=== PATIENT | male | born 1965 | race Caucasian/White ===

== ENCOUNTER 2017-01-07 23:23 | Emergency (ER) | payer OTHER ==
[~2017-01-07] VITALS: Ht 170.2 cm; Wt 56.7 kg
[~2017-01-07 23:23] MED LIST: ALBU1AER9 INH; ASPI81TA28 PO; CHOL400T PO; CYM/30 PO; MOME220A INH; OMEP40CA PO; VITAMIN E PO
[2017-01-07 23:31] VITALS: O2SAT 100
[2017-01-07 23:37] VITALS: TEMP 36.8; Ht 170.2 cm; Wt 56.7 kg
[2017-01-07] MEDS ORDERED: KETOROLAC TROMETHAMINE 30 MG/ML VIAL IV STA (23:44)
--- NOTE | 2017-01-07 23:47 | EMERGENCY ROOM VISIT NOTE ---
History Report prepared by Eli: Ge Sifuentes Under the Supervision of: Dr. Angelique Mendez D.O. First contact with patient: 23:28 Chief Complaint: CHEST PAIN Stated Complaint: CHEST/BACK PAIN,POSSIBLE PNEUMO THORAX History of Present Illness The patient is a 51 year old male who presents to the Emergency Room with complaints of persistent chest pain that started this evening. The patient has had pain in the center of his back radiating towards the left shoulder for one week, which became worse last night. He rates the pain 5/10 in severity. He also feels short of breath. The patient has had abdominal pain for the past 1-2 months. He notes increased stress over the past month. The patient has a history of two spontaneous pneumothoraxes, for which one required a chest tube. He occasionally takes Naproxen for chronic pain. He has a history of gastric ulcers. The patient has not had alcohol for 4 years as he is a recovering alcoholic. He is a smoker and intends to quit as he was diagnosed with COPD. Source of History: patient Onset: this evening Position: chest Symptom Intensity: 5/10 Timing: other (persistent) Associated Symptoms: + SOB, + back pain Review of Systems See HPI for pertinent positives & negatives. A total of 10 systems reviewed and were otherwise negative. Past Medical & Surgical Medical Problems: (1) Avascular necrosis of bone of left hip (2) BPH (benign prostatic hypertrophy) (3) Chronic back pain (4) Chronic obstructive lung disease (5) Degenerative joint disease of left hip (6) Depression (7) DJD (degenerative joint disease) (8) Gastroesophageal reflux disease (9) H/O alcohol abuse (10) Tobacco use disorder Surgical Problems: (1) H/O chest tube placement (2) H/O colonoscopy (3) H/O inguinal hernia repair (4) History of total right hip arthroplasty Family History Diabetes mellitus FATHER MOTHER SISTER FH: colon cancer SISTER (age 42) Social History Smoking Status: Current Every Day Smoker Alcohol Use: heavy Drug Use: none Marital Status: Housing Status: lives with significant other Occupation Status: unemployed Current/Historical Medications Scheduled Aspirin (Aspirin Ec), 81 MG PO QAM Cholecalciferol (Vitamin D), 400 UNITS PO QAM Duloxetine HCl (Cymbalta), 60 MG PO QAM Omeprazole (Prilosec), 40 MG PO DAILY Vitamin E (E-400), 400 UNIT PO DAILY Scheduled PRN Albuterol Hfa (Ventolin Hfa), 2 PUFFS PO QID PRN for SOB/Wheezing Mometasone Furoate (Asmanex Twisthaler 60 Met), 1 PUFF PO BID PRN for SOB/ Wheezing Allergies Coded Allergies: Iodinated Diagnostic Agents (Verified Allergy, Intermediate, SEVERE HIVES , 01/08/17) Propoxyphene (Verified Adverse Reaction, Intermediate, N/V, 01/08/17) Physical Exam Vital Signs Date Time Temp Pulse Resp B/P Pulse Ox O2 Delivery O2 Flow Rate FiO2 01/08/17 01:48 77 18 116/75 98 01/08/17 00:48 78 18 123/74 97 Room Air 01/07/17 23:37 36.8 101 24 119/77 100 Room Air 01/07/17 23:36 96 01/07/17 23:31 100 Room Air Physical Exam HEENT: Head - normocephalic and atraumatic Pupils are equal, round, and reactive to light. Extraocular eye muscles are intact, and sclera are anicteric. Nose - moist nasal mucosa without discharge. Mouth - moist buccal mucosa. Oropharynx is nonerythematous and there is no tonsillar exudate or edema noted. Neck: Supple; no JVD, nuchal rigidity, cervical lymphadenopathy, or auscultated bruits. Heart: Regular rate and rhythm. There is a normal S1 and S2 with no murmurs, clicks, or gallops appreciated. Lungs: Clear to auscultation bilaterally with no wheezes, rales, or rhonchi. Abdomen: Soft, completely nontender, nondistended, with good bowel sounds. There are no palpable pulsatile masses or hepatosplenomegaly. There is no guarding, rigidity, or rebound noted. Extremities: No evidence of cyanosis, clubbing, or edema. There are easily palpable peripheral pulses. Skin: warm and dry with good turgor and no rashes. Medical Decision & Procedures ER Provider Diagnostic Interpretation: X-ray results as stated below per interpretation by me. CHEST TWO VIEWS ROUTINE: Narrow mediastinum, no evidence of pneumothorax. Laboratory Results 01/07/17 23:53 Red Blood Count 4.37, Mean Corpuscular Volume 89.0, Mean Corpuscular Hemoglobin 31.8, Mean Corpuscular Hemoglobin Concent 35.7, Mean Platelet Volume 9.9, Neutrophils (%) (Auto) 54.8, Lymphocytes (%) (Auto) 32.0, Monocytes (%) (Auto) 10.0, Eosinophils (%) (Auto) 2.2, Basophils (%) (Auto) 0.9, Neutrophils # (Auto ) 4.21, Lymphocytes # (Auto) 2.46, Monocytes # (Auto) 0.77, Eosinophils # (Auto ) 0.17, Basophils # (Auto) 0.07 01/07/17 23:53 Test 01/07/17 23:53 White Blood Count 7.69 K/uL (4.8-10.8) Red Blood Count 4.37 M/uL (4.7-6.1) Hemoglobin 13.9 g/dL (14.0-18.0) Hematocrit 38.9 % (42-52) Mean Corpuscular Volume 89.0 fL (80-100) Mean Corpuscular Hemoglobin 31.8 pg (25-34) Mean Corpuscular Hemoglobin Concent 35.7 g/dl (32-36) Platelet Count 244 K/uL (130-400) Mean Platelet Volume 9.9 fL (7.4-10.4) Neutrophils (%) (Auto) 54.8 % Lymphocytes (%) (Auto) 32.0 % Monocytes (%) (Auto) 10.0 % Eosinophils (%) (Auto) 2.2 % Basophils (%) (Auto) 0.9 % Neutrophils # (Auto) 4.21 K/uL (1.4-6.5) Lymphocytes # (Auto) 2.46 K/uL (1.2-3.4) Monocytes # (Auto) 0.77 K/uL (0.11-0.59) Eosinophils # (Auto) 0.17 K/uL (0-0.5) Basophils # (Auto) 0.07 K/uL (0-0.2) RDW Standard Deviation 49.5 fL (36.4-46.3) RDW Coefficient of Variation 15.1 % (11.5-14.5) Immature Granulocyte % (Auto) 0.1 % Immature Granulocyte # (Auto) 0.01 K/uL (0.00-0.02) Anion Gap 12.0 mmol/L (3-11) Est Creatinine Clear Calc Drug Dose 81.6 ml/min Estimated GFR () 115.9 Estimated GFR (Non- 100.0 BUN/Creatinine Ratio 10.3 (10-20) Calcium Level 9.3 mg/dl (8.5-10.1) Total Bilirubin 0.3 mg/dl (0.2-1) Direct Bilirubin 0.1 mg/dl (0-0.2) Aspartate Amino Transf (AST/SGOT) 11 U/L (15-37) Alanine Aminotransferase (ALT/SGPT) 21 U/L (12-78) Alkaline Phosphatase 82 U/L (45-117) Total Creatine Kinase 120 U/L (39-308) Creatine Kinase MB 1.3 ng/ml (0.5-3.6) Creatine Kinase MB Ratio 1.1 (0-3.0) Troponin I < 0.015 ng/ml (0-0.045) Total Protein 8.1 gm/dl (6.4-8.2) Albumin 4.3 gm/dl (3.4-5.0) Lipase 230 U/L (73-393) Laboratory results per my review. Medications Administered Medications (Trade) Dose Ordered Sig/[place] Route Start Time Stop Time Status Last Admin Dose Admin Ketorolac Tromethamine (Toradol Inj) 30 mg NOW STAT IV 01/07/17 23:44 01/07/17 23:45 DC 01/07/17 23:56 30 MG Procedure Medications administered include Toradol IV. ECG Indication: chest pain Rate (beats per minute): 98 Rhythm: normal sinus Findings: no acute ischemic change, no ectopy ED Course 2337: Past medical records reviewed. The patient was evaluated in room A10. A complete history and physical exam was performed. An IV lock was initiated and labs are drawn as above. A twelve-lead EKG was obtained as described above. 2344: Toradol 30 mg IV. The patient went for chest x-ray which was unremarkable. 0125: The patient feels better. I reviewed the X-ray results and labs with him. He will be written up for discharge. 0145: The patient verbalized understanding and agreement of the discharge instructions. He is ready for discharge. Medical Decision The patient is a 51 year old male who presents to the ED with chest pain. Differential diagnosis includes pneumothorax, anxiety, costochondritis, cardiac ischemia. Laboratory interpretation: no leukocytosis, stable H&H, normal renal function and glucose, normal LFTs and lipase, negative cardiac enzymes. This is a 51-year-old male patient who presents to emergency department complaining of back pain that seems to radiate around to his chest. There is no evidence of pneumothorax or other pulmonary pathology the patient admits to being under significant increased stress secondary to financial reasons. The patient has a normal EKG and negative cardiac enzymes. The patient had moderate relief of his discomfort with IV Toradol. Impression Primary Impression: Mid back pain Additional Impression: Atypical chest pain Scribe Attestation The scribe's documentation has been prepared under my direction and personally reviewed by me in its entirety. I confirm that the note above accurately reflects all work, treatment, procedures, and medical decision making performed by me. Departure Information Dispostion Home / Self-Care Referrals Laura Wang M.D. (PCP) Forms HOME CARE DOCUMENTATION FORM, IMPORTANT VISIT INFORMATION Patient Instructions Chest Pain - [facility], ED Back Care Tips, My [facility] Additional Instructions Rest No strenuous activity Take motrin - 600mg every 6 hours with food for pain Return to the ER if symptoms worsen. Follow up with PCP if symptoms continue Good luck with smoking cessation Problem Qualifiers
[2017-01-08] MEDS ORDERED: ASMIN/60 PO (00:02)
[2017-01-08] MEDS ORDERED: VNTHFA/IN PO (00:02)
[2017-01-08] MEDS ORDERED: OMEP40CA41 PO (00:02)
[2017-01-08] MEDS ORDERED: VITACAP37 PO (00:03)
[2017-01-08 00:06] LABS: BASO % 0.9 %; BASO ABS # 0.07 K/uL (0-0.2); COMPLETE YES; EOS % 2.2 %; HEMATOCRIT 38.9 % (42-52); IG% 0.1 %; LYMPH ABS # 2.46 K/uL (1.2-3.4); MEAN CORPUSCULAR HEMOGLOBIN 31.8 pg (25-34); MEAN CORPUSCULAR HGB CONC 35.7 g/dl (32-36); MEAN PLATELET VOLUME 9.9 fL (7.4-10.4); NEUT % 54.8 %; PLATELET COUNT 244 K/uL (130-400); RED BLOOD COUNT 4.37 M/uL (4.7-6.1); WHITE BLOOD COUNT 7.69 K/uL (4.8-10.8)
[2017-01-08 00:41] LABS: ALT/SGPT 21 U/L (12-78); AST/SGOT 11 U/L (15-37); BLOOD UREA NITROGEN 9 mg/dl (7-18); BUN/CREATININE RATIO 10.3 (10-20); CALCIUM 9.3 mg/dl (8.5-10.1); CARBON DIOXIDE 25 mmol/L (21-32); CHLORIDE 100 mmol/L (98-107); CREATININE 0.84 mg/dl (0.60-1.40); GLUCOSE 90 mg/dl (70-99); POTASSIUM 3.7 mmol/L (3.5-5.1); SODIUM 137 mmol/L (136-145)
[2017-01-08 00:47] LABS: ALKALINE PHOSPHATASE 82 U/L (45-117); CKMB/CK RATIO 1.1 (0-3.0)
[2017-01-08 01:48] VITALS: BP 116/75; PULSE 77; O2SAT 98
--- NOTE | 2017-01-08 06:50 | DIAGNOSTIC IMAGING REPORT ---
CHEST 2 VIEWS ROUTINE CLINICAL HISTORY: Shortness of breath. Chest and back pain. COMPARISON STUDY: 12/19/2015 FINDINGS: The patient appears hyperinflated. The heart is normal in size. There is chronic interstitial thickening. There is mild biapical scarring. There is no failure. There are no significant pleural effusions.[ IMPRESSION: 1. No active disease in the chest 2. Stable hyperexpansion, interstitial thickening, and biapical scarring Electronically signed by: Qamar Hudson M.D. 01/08/2017 6:48 AM Dictated Date/Time: 01/08/2017 6:47 AM
[2017-04-26] MEDS ORDERED: ZNTT/150 PO (15:06)
[2017-04-26] MEDS ORDERED: BUSP15TA70 PO (15:07)
[2017-04-26] MEDS ORDERED: CHOL1000 PO (15:07)
[2017-04-26] MEDS ORDERED: TRAZ100T29 PO (15:07)
[2017-04-26] MEDS ORDERED: VITA1TAB4 PO (15:07)
[2017-04-26] MEDS ORDERED: SERT50TA PO (15:07)
== END 2017-01-08 01:49 | disposition home or self-care (01) ==
LOC: C.EDB 23:25 → C.EDA 01-08 01:49
DX: R07.89 Other chest pain (principal); M54.6 Pain in thoracic spine; G89.29 Other chronic pain; J44.9 Chronic obstructive pulmonary disease, unspecified; K21.9 Gastro-esophageal reflux disease without esophagitis; F32.9 Major depressive disorder, single episode, unspecified; M16.12 Unilateral primary osteoarthritis, left hip; N40.0 Benign prostatic hyperplasia without lower urinary tract symptoms; F17.200 Nicotine dependence, unspecified, uncomplicated; Z87.11 Personal history of peptic ulcer disease; Z96.641 Presence of right artificial hip joint; Z98.890 Other specified postprocedural states; Z79.82 Long term (current) use of aspirin; Z79.899 Other long term (current) drug therapy; Z88.8 Allergy status to other drugs, medicaments and biological substances; Z91.041 Radiographic dye allergy status; Z83.3 Family history of diabetes mellitus; Z80.0 Family history of malignant neoplasm of digestive organs

== ENCOUNTER → 2017-05-02 | Day surgery (SDC) | payer OTHER ==
[2017-04-26 15:09] VITALS: Ht 170.2 cm; Wt 57.7 kg
[~2017-05-02] VITALS: Ht 170.2 cm; Wt 57.7 kg
[~2017-05-02] MED LIST changes: -ALBU1AER9 INH; +ASMIN/60 PO; -ASPI81TA28 PO; +BUSP15TA70 PO; +CHOL1000 PO; -CHOL400T PO; -CYM/30 PO; +LIDOCAINE HCL 2% 2 ML VIAL (20MG/ML) ONE; -MOME220A INH; -OMEP40CA PO; +OMEP40CA41 PO; +ONDANSETRON INJ 2 MG/ML 2 ML VIAL IV PRN; +PROPOFOL IV EMULSION 10 MG/ML 20 ML VIAL IV ONE; +SERT50TA PO; +TRAZ100T29 PO; +VITA1TAB4 PO; -VITAMIN E PO; +VNTHFA/IN PO; +ZNTT/150 PO
--- NOTE | 2017-05-02 09:29 | Endo History and Physical ---
History & Physical Date of Service: May 02, 2017. Chief Complaint: abdominal pain and nausea Referring Physician: Dr. Laura Wang History of Present Illness Patient with a history of nausea for EGD today. Past Medical History Arthritis, Reflux, COPD, Depression Past Surgical History Hx Cardiac Surgery: No Hx Internal Defibrillator: No Hx Pacemaker: No Hx Abdominal Surgery: Yes (HERNIA REPAIR) Hx of Implantable Prosthesis: No Hx Post-Op Nausea and Vomiting: No Hx Cancer Surgery: No Hx Thoracic Surgery: Yes (CHEST TUBE 1991 S/P SPONTANEOUS PNEUMO) Hx Orthopedic: Yes (LT/RT RADU) Hx Urinary Tract Surgery: No Family History Colon CA Social History Smoking Status: Current Every Day Smoker Hx Substance Use: No Hx Alcohol Use: Yes (4 YEARS SOBER) Allergies Coded Allergies: Iodinated Diagnostic Agents (Verified Allergy, Intermediate, SEVERE HIVES , 04/26/17) Propoxyphene (Verified Adverse Reaction, Intermediate, N/V, 04/26/17) Current Medications Reported Home Medications Medications Dose Route/Sig Max Daily Dose Days Date Category Vitamin E 400 Unit Tab 1 Tab PO QAM 04/26/17 Reported Vitamin D3 (Cholecalciferol) 1,000 Unit Tab 1 Tab PO QAM 04/26/17 Reported Zoloft (Sertraline HCl) 50 Mg Tab 3 Tabs PO QAM 04/26/17 Reported Trazodone (Trazodone HCl) 100 Mg Tab 1-2 Tabs PO HS 04/26/17 Reported Buspar (Buspirone Hcl) 15 Mg Tab 10 Mg PO TID 04/26/17 Reported Zantac (Ranitidine HCl) 150 Mg Tab 1 Tab PO BID 04/26/17 Reported Asmanex Twisthaler 60 Met (Mometasone Furoate) 220 Mcg/Inh Aer 1 Puff PO BID PRN 01/08/17 Reported Ventolin Hfa (Albuterol) 200 Puffs/26881 Mcg Aers 2 Puffs PO QID PRN 01/08/17 Reported Prilosec (Omeprazole) 40 Mg Cap 40 Mg PO QAM 01/08/17 Reported Vital Signs Weight (Kilograms): 57.73 Height (Feet): 5 Height (Inches): 7 Date Time Temp Pulse Resp B/P (MAP) Pulse Ox O2 Delivery O2 Flow Rate FiO2 05/02/17 09:10 36.4 88 16 99/63 (75) 98 Room Air Physical Exam General Appearance: no apparent distress Respiratory/Chest: Auscultation: breath sounds normal Cardiovascular: Heart Auscultation: RRR Abdomen: Inspection & Palpation: soft, non-distended Assessment and Plan Evaluation for nausea referred for EGD.
--- NOTE | 2017-05-02 09:49 | Discharge Instructions ---
Endoscopy Patient Instructions Date / Procedure(s) Performed May 02, 2017. EGD Allergy Information Coded Allergies: Iodinated Diagnostic Agents (Verified Allergy, Intermediate, SEVERE HIVES , 04/26/17) Propoxyphene (Verified Adverse Reaction, Intermediate, N/V, 04/26/17) Discharge Date / Findings May 02, 2017. 3 cm hiatal hernia Diffuse gastritis Medication Instructions Restart Stopped Medication(s): Reported Home Medications Medications Dose Route/Sig Max Daily Dose Days Date Category Vitamin E 400 Unit Tab 1 Tab PO QAM 04/26/17 Reported Vitamin D3 (Cholecalciferol) 1,000 Unit Tab 1 Tab PO QAM 04/26/17 Reported Zoloft (Sertraline HCl) 50 Mg Tab 3 Tabs PO QAM 04/26/17 Reported Trazodone (Trazodone HCl) 100 Mg Tab 1-2 Tabs PO HS 04/26/17 Reported Buspar (Buspirone Hcl) 15 Mg Tab 10 Mg PO TID 04/26/17 Reported Zantac (Ranitidine HCl) 150 Mg Tab 1 Tab PO BID 04/26/17 Reported Asmanex Twisthaler 60 Met (Mometasone Furoate) 220 Mcg/Inh Aer 1 Puff PO BID PRN 01/08/17 Reported Ventolin Hfa (Albuterol) 200 Puffs/87378 Mcg Aers 2 Puffs PO QID PRN 01/08/17 Reported Prilosec (Omeprazole) 40 Mg Cap 40 Mg PO QAM 01/08/17 Reported Provider Instructions Activity Restrictions - No exercising or heavy lifting for 24 hours. - Do not drink alcohol the day of the procedure. - Do not drive a car or operate machinery until the day after the procedure. - Do not make any important decisions or sign important papers in 24 hours after the procedure. Following Day: - Return to full activity which may include returning to work/school. Diet Start your diet with liquids and light foods (jello, soup, juice, toast). Then eat your usual diet if not nauseated. Treatment For Common After Affects For mild abdominal pain, bloating, or excessive gas: - Rest - Eat lightly - Lie on right side Follow-Up Information Follow-up with Dr. Laura Wang as scheduled symptoms likely related to a medication (would favor Zoloft or Wellbutrin) Anesthesia Information What You Should Know You have had a procedure that required some medicine to reduce anxiety and discomfort. This treatment is called moderate sedation. After receiving the treatment, you may be sleepy, but you will be able to breathe on your own. The effects of the treatment may last for several hours. Follow these instructions along with Activity/Diet recommendations noted above: * Do NOT do anything where dizziness or clumsiness would be dangerous. * Rest quietly at home today, then you can be up and about tomorrow. * Have a responsible person stay with you the rest of today. * You may have had an I.V. today. If so, you may take the dressing off later today. Recommendations Call your doctor if: * Trouble breathing * Continuous vomiting for more than 24 hours * Temperature above 101 degrees * Severe abdominal pain or bloating * Pain not relieved by pain medicine ordered * There is increased drainage or redness from any incision * A large amount of rectal bleeding greater than 2-3 tablespoons. (If you had a polyp/s removed or have hemorrhoids, a small amount of blood - from the rectum is to be expected.) * You have any unanswered questions or concerns. IN THE EVENT OF A SERIOUS EMERGENCY, GO TO THE NEAREST EMERGENCY ROOM Your discharge instructions were prepared by provider Priscilla Peralta. Patient Instructions Signature Page Azar Fisher Patient (or Guardian) Signature/Date: I have read and understand the instructions given to me by my caregivers. Caregiver/RN/Doctor Signature/Date: The above-named patient and/or guardian has received patient instructions on this date. + Original Patient Signature Page (only) stays with chart. Please make copy for patient.
--- NOTE | 2017-05-02 09:54 | GI REPORT ---
Procedure Date: 05/02/2017 9:32 AM Procedure: Upper GI endoscopy Indications: Nausea with vomiting Medicines: Monitored Anesthesia Care Complications: No immediate complications. Estimated blood loss: Minimal. Estimated Blood Loss: Estimated blood loss was minimal. Procedure: Pre-Anesthesia Assessment: - Prior to the procedure, a History and Physical was performed, and patient medications, allergies and sensitivities were reviewed. The patient's tolerance of previous anesthesia was reviewed. - The risks and benefits of the procedure and the sedation options and risks were discussed with the patient. All questions were answered and informed consent was obtained. - Patient identification and proposed procedure were verified prior to the procedure by the physician, the nurse and the recreation attendant supervisor. The procedure was verified in the procedure room. - Pre-procedure physical examination revealed no contraindications to sedation. - ASA Grade Assessment: III - A patient with severe systemic disease. - After reviewing the risks and benefits, the patient was deemed in satisfactory condition to undergo the procedure. - The anesthesia plan was to use monitored anesthesia care (MAC). - Immediately prior to administration of medications, the patient was re-assessed for adequacy to receive sedatives. - The heart rate, respiratory rate, oxygen saturations, blood pressure, adequacy of pulmonary ventilation, and response to care were monitored throughout the procedure. - The physical status of the patient was re-assessed after the procedure. After obtaining informed consent, the endoscope was passed under direct vision. Throughout the procedure, the patient's blood pressure, pulse, and oxygen saturations were monitored continuously. The scope was introduced through the mouth, and advanced to the third part of duodenum. The upper GI endoscopy was accomplished without difficulty. The patient tolerated the procedure well. Findings: The examined esophagus was normal. A medium-sized hiatus hernia was found. The proximal extent of the gastric folds (end of tubular esophagus) was 36 cm from the incisors. The hiatal narrowing was 39 cm from the incisors. The Z-line was 36 cm from the incisors. Diffuse mild inflammation characterized by congestion (edema), erythema and granularity was found in the entire examined stomach. Biopsies were taken with a cold forceps for histology. Estimated blood loss was minimal. The examined duodenum was normal. Biopsies for histology were taken with a cold forceps for evaluation of celiac disease. Estimated blood loss was minimal. Impression: - Normal esophagus. - Medium-sized hiatus hernia. - Gastritis. Biopsied. - Normal examined duodenum. Biopsied. Recommendation: - Discharge patient to home (ambulatory). - Advance diet as tolerated today. - Await pathology results. - Return to referring physician as previously scheduled. - Symptoms likley mediation related (would favor Zoloft or Wellbutrin as cause of nausea) Priscilla Peralta D.O. Priscilla Peralta, 05/02/2017 9:53:30 AM This report has been signed electronically. Note Initiated On: 05/02/2017 9:32 AM I attest to the content of the Intraoperative Record and orders documented therein, exceptions below
[2017-05-02 10:31] VITALS: BP 122/67; PULSE 77; O2SAT 97
--- NOTE | 2017-05-02 10:33 | Anesthesiology Progress Note ---
Anesthesia Post Op Note Date & Time May 02, 2017 at 10:33 Vital Signs Pain Intensity: 0 Vital Signs Past 12 Hours Date Time Temp Pulse Resp B/P (MAP) Pulse Ox O2 Delivery O2 Flow Rate FiO2 05/02/17 10:31 77 18 122/67 (85) 97 Room Air 05/02/17 10:26 75 18 120/67 (84) 96 Room Air 05/02/17 10:05 77 16 103/66 (78) 96 Room Air 05/02/17 09:56 88 16 99/60 (73) 98 Room Air 05/02/17 09:10 36.4 88 16 99/63 (75) 98 Room Air Notes Mental Status: alert / awake / arousable, participated in evaluation Pt Amnestic to Procedure: Yes Nausea / Vomiting: adequately controlled Pain: adequately controlled Airway Patency, RR, SpO2: stable & adequate BP & HR: stable & adequate Hydration State: stable & adequate Anesthetic Complications: no major complications apparent
== END | disposition home or self-care (01) ==
LOC: C.GI 08:51
PROVIDERS: ATTEND Internal Medicine Gastroenterology
DX: R10.9 Unspecified abdominal pain (principal); R11.2 Nausea with vomiting, unspecified; K44.9 Diaphragmatic hernia without obstruction or gangrene; K29.70 Gastritis, unspecified, without bleeding; M19.90 Unspecified osteoarthritis, unspecified site; K21.9 Gastro-esophageal reflux disease without esophagitis; J44.9 Chronic obstructive pulmonary disease, unspecified; F32.9 Major depressive disorder, single episode, unspecified; Z96.643 Presence of artificial hip joint, bilateral; Z80.0 Family history of malignant neoplasm of digestive organs; F17.200 Nicotine dependence, unspecified, uncomplicated; F41.9 Anxiety disorder, unspecified

== ENCOUNTER 2023-03-06 18:07 | Inpatient (IN) ==
[2023-03-06] MEDS ORDERED: ONDANSETRON INJ 2 MG/ML 2 ML VIAL IV STA (18:21)
[2023-03-06] MEDS ORDERED: ACETAMINOPHEN 500 MG TAB PO STA (18:21)
--- NOTE | 2023-03-06 18:21 | ED Triage Note ---
Date of Service March 06, 2023 History of Present Illness This patient was briefly evaluated while in triage. An abbreviated physical exam was performed. This patient is a 57-year-old Male who presents to the ED for evaluation of fever and body aches started this AM chills and nausea this afternoon took advil at 0930 Physical Exam GENERAL: NAD CARDIOVASCULAR: RRR RESPIRATORY: diminished, few wheezes ABDOMEN: BS x 4. Nontender to palpation. Initial orders for labs and / or imaging were placed and patient was placed in the waiting area until a bed is available. Please see further documentation for the full ED course.
[2023-03-06] MEDS ORDERED: SODIUM CHLORIDE 0.9% 1000ML 1,000 ML IV SCH (18:23)
[2023-03-06] MEDS ORDERED: SODIUM CHLORIDE 0.9% 1000ML 2,000 ML IV ONE (19:32)
[2023-03-06] MEDS ORDERED: cefTRIAXone SODIUM 2,000 MG/70 ML BAG IV STA (19:32)
--- NOTE | 2023-03-06 19:37 | Emergency Department Note ---
Impression & Plan Sepsis, Cellulitis, Hypokalemia ED Provider Note NAME: HARSHIL RED AGE: 57 SEX: M : 1965 ARRIVES VIA: Walk-In INFORMANT: Patient ED PROVIDER(S): Dalton Medrano DO CHIEF COMPLAINT: shaking chills HPI: Patient is a 57-year-old male with a previous history of alcohol abuse who presents to the ER for shaking chills which started today. Fevers as high as 102. Denies any headache or change in vision. No chest pain or shortness of breath. Does have some nausea. He vomited several times. No dysuria, urgency, or frequency. He notes that he has redness on his left leg which she noticed today. Is very warm and painful. The redness has been getting worse. He has had this once before several years ago. PAST MEDICAL HISTORY:See Below PAST SURGICAL HISTORY:See Below FAMILY HISTORY:See Below SOCIAL HISTORY:See Below HOME MEDICATIONS:See Below ALLERGIES:See Below VITALS:See Below PHYSICAL EXAMINATION: GENERAL: Sitting up in bed, alert, ill-appearing with intermittent shaking chills EYE EXAM: normal conjunctiva. OROPHARYNX: mucous membranes are moist NECK: supple, no nuchal rigidity, no adenopathy, non-tender LUNGS: Clear to auscultation. Normal chest wall mechanics HEART: no murmurs, S1 normal and S2 normal ABDOMEN: abdomen soft, non-tender, normo-active bowel sounds, no masses, no rebound or guarding. BACK: Back is symmetrical on inspection and there is no deformity, no midline tenderness, no CVA tenderness. SKIN: Erythema from the posterior aspect of the left ankle tracking up to the mid calf which is warm and tender. DP and PT 2 out of 4. No crepitus. Skin is intact UPPER EXTREMITIES: upper extremities are grossly normal. LOWER EXTREMITIES: No pitting edema. NEURO EXAM: Normal sensorium, cranial nerves II-XII grossly intact, normal speech, no gross weakness of arms, no gross weakness of legs. MEDICAL DECISION MAKING: Patient is a 57-year-old male who presents ER for above-stated complaint. IV was established blood work was obtained. External records reviewed. Labs show no significant leukocytosis or anemia. BMP was unremarkable with the exception of slightly elevated glucose. LFTs bilirubin was unremarkable. Lipase Pro-Chemo and TSH were normal. UA was clean. Viral panel was negative. Chest x-ray was clean. Patient was given IV fluids and IV antibiotics. He was updated at bedside. I do favor this is all consistent with cellulitis of his left lower extremity. Case was discussed with the hospitalist and admitted for further work-up. Fever and tachycardia did resolve. Discussed case with Dr. Rashawn vega. Triage Nursing notes reviewed. Limited review of prior medical records performed Vital Signs: reviewed and remarkable for tachycardia and febrile Differential diagnosis: Differential diagnosis includes etiologies such as sepsis, UTI, pneumonia, metabolic, electrolyte abnormalities, cardiac sources, intracerebral event, toxicologic, neurological, as well as others were entertained. ER treatment provided: See below Diagnostics interpreted by me include EKG and cardiac monitoring as listed below: -Cardiac Monitoring: An order was placed for continuous cardiac monitoring. The monitor shows a rate of 112 with sinus rhythm. -ECG: none -Laboratory studies:Interpreted by me as stated above in MDM and shown below. Imaging studies: Xrays: As interpreted by me: Portable AP upright 1 view of the chest shows no pneumonia CTs show: none Consultation(s): As described in MDM Procedures:none Critical Care: None Past Med/Surg History Social History Smoking Status: Unknown if ever smoked Feels Safe at Home: Yes Allergies Allergies Allergy/AdvReac Type Severity Reaction Status Date / Time Iodinated Contrast Media Allergy Intermediate SEVERE Verified 03/06/23 19:35 HIVES propoxyphene AdvReac Intermediate N/V Verified 03/06/23 19:35 Home Meds Home Medications Medication Instructions Recorded Confirmed omega 3-dha 500 mg-epa 100 mg-fish 1 cap PO DAILY 08/05/21 03/06/23 oil capsule (Nuretin) omeprazole 40 mg capsule,delayed 40 mg PO DAILYBB 08/05/21 03/06/23 release Results & Data (ED) Vital Signs Vital Signs - 24 hr 03/06/23 18:19 03/06/23 19:30 03/06/23 20:00 Temperature 37.8 C H 38.8 C H Temperature Source Temporal Artery Scan Oral Pulse Rate 118 H 103 H Respiratory Rate 20 25 H Respiratory Effort / Characteristics Non-Labored Respiratory Depth Normal Blood Pressure 133/74 120/82 Blood Pressure Mean 93 94 Pulse Oximetry 99 97 Oxygen Delivery Method Room Air Room Air Sepsis Recent Fever Within 48 Hours No Sepsis New/Unexplained Change in Mental Status No Sepsis Action Taken by Nursing No Action Required 03/06/23 20:09 03/06/23 19:33 03/06/23 20:30 Temperature Temperature Source Pulse Rate 104 H 104 H 107 H Respiratory Rate 25 H 27 H Respiratory Effort / Characteristics Respiratory Depth Blood Pressure 116/72 133/68 Blood Pressure Mean 86 89 Pulse Oximetry 96 96 Oxygen Delivery Method Room Air Room Air Sepsis Recent Fever Within 48 Hours Sepsis New/Unexplained Change in Mental Status Sepsis Action Taken by Nursing 03/06/23 21:00 03/06/23 21:30 03/06/23 21:34 Temperature 37.9 C H Temperature Source Oral Pulse Rate 105 H 102 H Respiratory Rate 27 H 27 H Respiratory Effort / Characteristics Respiratory Depth Blood Pressure 121/67 105/67 Blood Pressure Mean 85 79 Pulse Oximetry 93 92 Oxygen Delivery Method Room Air Room Air Sepsis Recent Fever Within 48 Hours Sepsis New/Unexplained Change in Mental Status Sepsis Action Taken by Nursing 03/06/23 22:09 03/06/23 22:30 03/06/23 22:31 Temperature Temperature Source Pulse Rate 97 H 94 H 94 H Respiratory Rate 16 18 20 Respiratory Effort / Characteristics Respiratory Depth Blood Pressure 82/60 L Blood Pressure Mean 67 Pulse Oximetry 94 94 93 Oxygen Delivery Method Room Air Room Air Room Air Sepsis Recent Fever Within 48 Hours Sepsis New/Unexplained Change in Mental Status Sepsis Action Taken by Nursing Laboratory Data 03/06/23 19:24 03/06/23 19:24 Lab Results 03/06/23 03/06/23 03/06/23 Range/Units 19:00 19:24 19:24 WBC 9.40 (4.8-10.8) K/ul RBC 4.19 L (4.70-6.10) M/uL Hgb 13.1 L (14.0-18.0) g/dl Hct 38.1 L (42.0-52.0) % MCV 90.9 (80.0-100.0) fL MCH 31.3 (25.0-34.0) pg MCHC 34.4 (32.0-36.0) g/dL RDW Std Deviation 42.8 (36.4-46.3) fL RDW Coeff of Lalo 13.0 (11.5-14.5) % Plt Count 176 (130-400) K/uL MPV 11.2 (9.4-12.4) fL Immature Gran % (Auto) 0.4 % Neut % (Auto) 88.1 % Lymph % (Auto) 7.7 % Kane % (Auto) 2.3 % Eos % (Auto) 1.1 % Baso % (Auto) 0.4 % Neut # (Auto) 8.28 H (1.40-6.50) K/uL Lymph # (Auto) 0.72 L (1.2-3.4) K/uL Kane # (Auto) 0.22 (0.11-0.59) K/uL Eos # (Auto) 0.10 (0-0.50) K/uL Baso # (Auto) 0.04 (0-0.2) K/uL Immature Gran # (Auto) 0.04 (0.01-0.20) K/uL Sodium 133 L (136-145) mmol/L Potassium 3.8 (3.5-5.1) mmol/L Chloride 100 (98-107) mmol/L Carbon Dioxide 24 (21-32) mmol/L Anion Gap 9 (3-11) BUN 26 H (6-23) mg/dl Creatinine 1.48 H (0.6-1.4) mg/dl Est Cr Clr Drug Dosing 56.4 ml/min Est GFR ( Amer) 59.2 ml/min Est GFR (Non-Af Amer) 51.1 ml/min BUN/Creatinine Ratio 17.6 (10-20) Glucose 160 H (70-99(Fasting)) mg/dl Lactate (0.4-2.0) mmol/L Calcium 9.6 (8.6-10.3) mg/dl Magnesium 1.6 L (1.7-2.4) mg/dl Total Bilirubin 0.6 (0.2-1.0) mg/dl AST 43 H (13-39) U/L ALT 52 (7-52) U/L Alkaline Phosphatase 81 (34-104) U/L Total Protein 8.1 (6.0-8.3) gm/dl Albumin 4.5 (3.4-5.0) gm/dl Globulin 3.6 (2.5-4.0) gm/dl Albumin/Globulin Ratio 1.3 (0.9-2) Lipase 19 (11-82) U/L Procalcitonin (0-0.5) ng/ml TSH (0.300-4.500) uIu/ml Urine Color Urine Appearance (Clear) Urine pH (4.5-7.5) Ur Specific [place] (1.000-1.030) Urine Protein (Negative) Urine Glucose (UA) (Negative) Urine Ketones (Negative) Urine Blood (Negative) Urine Nitrite (Negative) Urine Bilirubin (Negative) Urine Urobilinogen (Negative) Ur Leukocyte Esterase (Negative) Urine WBC (Auto) (0-5) /hpf Urine RBC (Auto) (0-4) /hpf U Hyaline Cast (Auto) (0-5) /lpf U Epithel Cells (Auto) (0-5) /lpf Urine Bacteria (Auto) (Negative) Adenovirus (PCR) Not Detected (NotDetected) B. pertussis DNA (PCR) Not Detected (NotDetected) B.parapertussis DNA PCR Not Detected (NotDetected) C. pneumoniae DNA (PCR) Not Detected (NotDetected) Coronavirus OC43 (PCR) Not Detected (NotDetected) Coronavirus HKU1 (PCR) Not Detected (NotDetected) Coronavirus 229E (PCR) Not Detected (NotDetected) SARS-CoV-2 (PCR) Not Detected (NotDetected) Coronavirus NL63 (PCR) Not Detected (NotDetected) Human Metapneumovir PCR Not Detected (NotDetected) Influenza Type A (PCR) Not Detected (NotDetected) Influenza Type B (PCR) Not Detected (NotDetected) M. pneumoniae (PCR) Not Detected (NotDetected) Parainfluenza 1 (PCR) Not Detected (NotDetected) Parainfluenza 2 (PCR) Not Detected (NotDetected) Parainfluenza 3 (PCR) Not Detected (NotDetected) Parainfluenza 4 (PCR) Not Detected (NotDetected) RSV (PCR) Not Detected (NotDetected) Entero/Rhino (PCR) Not Detected (NotDetected) 03/06/23 03/06/23 03/06/23 Range/Units 19:25 19:30 19:32 WBC (4.8-10.8) K/ul RBC (4.70-6.10) M/uL Hgb (14.0-18.0) g/dl Hct (42.0-52.0) % MCV (80.0-100.0) fL MCH (25.0-34.0) pg MCHC (32.0-36.0) g/dL RDW Std Deviation (36.4-46.3) fL RDW Coeff of Lalo (11.5-14.5) % Plt Count (130-400) K/uL MPV (9.4-12.4) fL Immature Gran % (Auto) % Neut % (Auto) % Lymph % (Auto) % Kane % (Auto) % Eos % (Auto) % Baso % (Auto) % Neut # (Auto) (1.40-6.50) K/uL Lymph # (Auto) (1.2-3.4) K/uL Kane # (Auto) (0.11-0.59) K/uL Eos # (Auto) (0-0.50) K/uL Baso # (Auto) (0-0.2) K/uL Immature Gran # (Auto) (0.01-0.20) K/uL Sodium (136-145) mmol/L Potassium (3.5-5.1) mmol/L Chloride (98-107) mmol/L Carbon Dioxide (21-32) mmol/L Anion Gap (3-11) BUN (6-23) mg/dl Creatinine (0.6-1.4) mg/dl Est Cr Clr Drug Dosing ml/min Est GFR ( Amer) ml/min Est GFR (Non-Af Amer) ml/min BUN/Creatinine Ratio (10-20) Glucose (70-99(Fasting)) mg/dl Lactate (0.4-2.0) mmol/L Calcium (8.6-10.3) mg/dl Magnesium (1.7-2.4) mg/dl Total Bilirubin (0.2-1.0) mg/dl AST (13-39) U/L ALT (7-52) U/L Alkaline Phosphatase (34-104) U/L Total Protein (6.0-8.3) gm/dl Albumin (3.4-5.0) gm/dl Globulin (2.5-4.0) gm/dl Albumin/Globulin Ratio (0.9-2) Lipase (11-82) U/L Procalcitonin 0.44 (0-0.5) ng/ml TSH 1.428 (0.300-4.500) uIu/ml Urine Color Yellow Urine Appearance Clear (Clear) Urine pH 6.5 (4.5-7.5) Ur Specific [place] 1.026 (1.000-1.030) Urine Protein 2+ H (Negative) Urine Glucose (UA) Negative (Negative) Urine Ketones Trace H (Negative) Urine Blood 1+ H (Negative) Urine Nitrite Negative (Negative) Urine Bilirubin Negative (Negative) Urine Urobilinogen Negative (Negative) Ur Leukocyte Esterase Negative (Negative) Urine WBC (Auto) 1-5 (0-5) /hpf Urine RBC (Auto) 0-4 (0-4) /hpf U Hyaline Cast (Auto) 1-5 (0-5) /lpf U Epithel Cells (Auto) 20-30 H (0-5) /lpf Urine Bacteria (Auto) Negative (Negative) Adenovirus (PCR) (NotDetected) B. pertussis DNA (PCR) (NotDetected) B.parapertussis DNA PCR (NotDetected) C. pneumoniae DNA (PCR) (NotDetected) Coronavirus OC43 (PCR) (NotDetected) Coronavirus HKU1 (PCR) (NotDetected) Coronavirus 229E (PCR) (NotDetected) SARS-CoV-2 (PCR) (NotDetected) Coronavirus NL63 (PCR) (NotDetected) Human Metapneumovir PCR (NotDetected) Influenza Type A (PCR) (NotDetected) Influenza Type B (PCR) (NotDetected) M. pneumoniae (PCR) (NotDetected) Parainfluenza 1 (PCR) (NotDetected) Parainfluenza 2 (PCR) (NotDetected) Parainfluenza 3 (PCR) (NotDetected) Parainfluenza 4 (PCR) (NotDetected) RSV (PCR) (NotDetected) Entero/Rhino (PCR) (NotDetected) 03/06/23 Range/Units 19:51 WBC (4.8-10.8) K/ul RBC (4.70-6.10) M/uL Hgb (14.0-18.0) g/dl Hct (42.0-52.0) % MCV (80.0-100.0) fL MCH (25.0-34.0) pg MCHC (32.0-36.0) g/dL RDW Std Deviation (36.4-46.3) fL RDW Coeff of Lalo (11.5-14.5) % Plt Count (130-400) K/uL MPV (9.4-12.4) fL Immature Gran % (Auto) % Neut % (Auto) % Lymph % (Auto) % Kane % (Auto) % Eos % (Auto) % Baso % (Auto) % Neut # (Auto) (1.40-6.50) K/uL Lymph # (Auto) (1.2-3.4) K/uL Kane # (Auto) (0.11-0.59) K/uL Eos # (Auto) (0-0.50) K/uL Baso # (Auto) (0-0.2) K/uL Immature Gran # (Auto) (0.01-0.20) K/uL Sodium (136-145) mmol/L Potassium (3.5-5.1) mmol/L Chloride (98-107) mmol/L Carbon Dioxide (21-32) mmol/L Anion Gap (3-11) BUN (6-23) mg/dl Creatinine (0.6-1.4) mg/dl Est Cr Clr Drug Dosing ml/min Est GFR ( Amer) ml/min Est GFR (Non-Af Amer) ml/min BUN/Creatinine Ratio (10-20) Glucose (70-99(Fasting)) mg/dl Lactate 1.2 (0.4-2.0) mmol/L Calcium (8.6-10.3) mg/dl Magnesium (1.7-2.4) mg/dl Total Bilirubin (0.2-1.0) mg/dl AST (13-39) U/L ALT (7-52) U/L Alkaline Phosphatase (34-104) U/L Total Protein (6.0-8.3) gm/dl Albumin (3.4-5.0) gm/dl Globulin (2.5-4.0) gm/dl Albumin/Globulin Ratio (0.9-2) Lipase (11-82) U/L Procalcitonin (0-0.5) ng/ml TSH (0.300-4.500) uIu/ml Urine Color Urine Appearance (Clear) Urine pH (4.5-7.5) Ur Specific [place] (1.000-1.030) Urine Protein (Negative) Urine Glucose (UA) (Negative) Urine Ketones (Negative) Urine Blood (Negative) Urine Nitrite (Negative) Urine Bilirubin (Negative) Urine Urobilinogen (Negative) Ur Leukocyte Esterase (Negative) Urine WBC (Auto) (0-5) /hpf Urine RBC (Auto) (0-4) /hpf U Hyaline Cast (Auto) (0-5) /lpf U Epithel Cells (Auto) (0-5) /lpf Urine Bacteria (Auto) (Negative) Adenovirus (PCR) (NotDetected) B. pertussis DNA (PCR) (NotDetected) B.parapertussis DNA PCR (NotDetected) C. pneumoniae DNA (PCR) (NotDetected) Coronavirus OC43 (PCR) (NotDetected) Coronavirus HKU1 (PCR) (NotDetected) Coronavirus 229E (PCR) (NotDetected) SARS-CoV-2 (PCR) (NotDetected) Coronavirus NL63 (PCR) (NotDetected) Human Metapneumovir PCR (NotDetected) Influenza Type A (PCR) (NotDetected) Influenza Type B (PCR) (NotDetected) M. pneumoniae (PCR) (NotDetected) Parainfluenza 1 (PCR) (NotDetected) Parainfluenza 2 (PCR) (NotDetected) Parainfluenza 3 (PCR) (NotDetected) Parainfluenza 4 (PCR) (NotDetected) RSV (PCR) (NotDetected) Entero/Rhino (PCR) (NotDetected) Administered Medications Discontinued Medications Acetaminophen (Acetaminophen 500 Mg Tab) 1,000 mg PO NOW STA Stop: 03/06/23 18:22 Last Admin: 03/06/23 19:22 Dose: 1,000 mg Documented By: MEHNAZ Sodium Chloride (Nss 1000ml) 1,000 mls @ 999 mls/hr IV .Q1H1M KAIT Stop: 03/06/23 19:23 Last Infusion: 03/06/23 21:53 Dose: 0 mls/hr Documented By: Admin: 03/06/23 19:22 Dose: 999 mls/hr Documented By: MEHNAZ Sodium Chloride (Nss 1000ml) 2,000 mls @ 999 mls/hr IV .Q2H1M ONE Stop: 03/06/23 21:32 Last Admin: 03/06/23 20:51 Dose: 999 mls/hr Documented By: MEHNAZ Ceftriaxone Sodium (Rocephin) 2,000 mg in 70 mls @ 140 mls/hr IV NOW STA Stop: 03/06/23 20:01 Last Infusion: 03/06/23 20:44 Dose: 0 mls/hr Documented By: Admin: 03/06/23 20:06 Dose: 140 mls/hr Documented By: MEHNAZ Doxycycline Hyclate 100 mg/ (Dextrose) 110 mls @ 50 mls/hr IV NOW STA Stop: 03/06/23 23:21 Last Infusion: 03/07/23 00:27 Dose: 0 mls/hr Documented By: Admin: 03/06/23 22:15 Dose: 50 mls/hr Documented By: MEHNAZ Cefepime HCl (Maxipime) 2,000 mg in 20 mls @ 5 mls/min IV NOW STA; Protocol Stop: 03/06/23 21:14 Last Admin: 03/06/23 21:43 Dose: 5 mls/min Documented By: MEHNAZ Ibuprofen (Ibuprofen 200 Mg Tab) 400 mg PO NOW STA Stop: 03/06/23 20:47 Last Admin: 03/06/23 20:49 Dose: 400 mg Documented By: MEHNAZ Ondansetron HCl (Ondansetron Inj 2 Mg/Ml 2 Ml Vial) 4 mg IV NOW STA Stop: 03/06/23 18:22 Last Admin: 03/06/23 19:21 Dose: 4 mg Documented By: MEHNAZ Imaging Data Radiologist's Impression: Head CT 03/06/23 21:22 Exam(s): CT HEAD Without Contrast EXAM: CT Head Without Intravenous Contrast CLINICAL HISTORY: Reason for exam: villalobos. TECHNIQUE: Axial computed tomography images of the head/brain without intravenous contrast. CTDI is 35.15 mGy and DLP is 625.8 mGy-cm. Automated exposure control was utilized for the study. A dose lowering technique was utilized adhering to the principles of ALARA. COMPARISON: No relevant prior studies available. FINDINGS: Brain: No hemorrhage, extra-axial fluid collection, mass effect, or edema. Ventricles: Unremarkable. Bones/joints: Unremarkable. No fracture. Soft tissues: Unremarkable. Sinuses: No acute sinusitis. Mastoid air cells: Unremarkable as visualized. IMPRESSION: 1. No acute intracranial abnormality. Electronically signed by: Kenan Maria MD 03/06/23 23:[address] 03/06/23 21:28 Exam(s): CT EXTREMITY LEFT LOWER Without Contrast EXAM: CT Left Lower Extremity Without Intravenous Contrast CLINICAL HISTORY: Reason for exam: leg swelling. TECHNIQUE: Axial computed tomography images of the left lower extremity without intravenous contrast. CTDI is 15.6 mGy and DLP is 797.5 mGy-cm. Automated exposure control was utilized for the study. A dose lowering technique was utilized adhering to the principles of ALARA. COMPARISON: No relevant prior studies available. FINDINGS: Bones/joints: Bones are osteopenic. No acute fracture. No joint effusion at the ankle. No dislocation. Soft tissues: Subcutaneous soft tissue edema most pronounced in the distal lower extremity and at the level of the ankle. No soft tissue gas or abscess. IMPRESSION: 1. Subcutaneous soft tissue edema most pronounced in the distal lower extremity and at the level of the ankle. No soft tissue gas or abscess. 2. Bones are osteopenic for the patient's age. Consider DEXA. No acute fracture. Electronically signed by: Kenan Maria MD 03/06/23 23:27 PM Discharge Plan Visit Data Chief Complaint: Flu Like Symptoms Stated Complaint: FEVER, VOMITING, ACHEY ED Provider: Dalton Medrano Discharge Problem: Sepsis, Cellulitis, Hypokalemia Forms Stand Alone Forms: Pay with a Tweet Prescriptions Prescriptions: No Action omeprazole 40 mg capsule,delayed release(DR/EC) 40 mg PO DAILYBB Nuretin 500-100 mg Capsule 1 cap PO DAILY Referrals Referrals: Laura Wang MD [Primary Care Provider] -
[2023-03-06 19:50] LABS: Basophils # (auto) 0.04 K/uL (0-0.2); Basophils % (auto) 0.4 %; Eosinophils % (auto) 1.1 %; Hematocrit (blood only) 38.1 % (42.0-52.0); Hemoglobin 13.1 g/dl (14.0-18.0); Immature Granulocytes # (auto) 0.04 K/uL (0.01-0.20); Immature Granulocytes % (auto) 0.4 %; Lymphocytes # (auto) 0.72 K/uL (1.2-3.4); Lymphocytes % (auto) 7.7 %; Mean Corpuscular Hemoglobin 31.3 pg (25.0-34.0); Mean Corpuscular Hgb Conc 34.4 g/dL (32.0-36.0); Mean Corpuscular Volume 90.9 fL (80.0-100.0); Mean Platelet Volume 11.2 fL (9.4-12.4); Monocytes # (auto) 0.22 K/uL (0.11-0.59); Monocytes % (auto) 2.3 %; Neutrophils # (auto) 8.28 K/uL (1.40-6.50); Neutrophils % (auto) 88.1 %; Platelet Count 176 K/uL (130-400); RDW Standard Deviation 42.8 fL (36.4-46.3); Red Blood Count 4.19 M/uL (4.70-6.10)
[2023-03-06 20:00] LABS: Albumin Globulin Ratio 1.3 (0.9-2); Albumin Level 4.5 gm/dl (3.4-5.0); BUN Creatinine Ratio 17.6 (10-20); Bilirubin,Total 0.6 mg/dl (0.2-1.0); Calcium 9.6 mg/dl (8.6-10.3); Creatinine Clr Calc Pharmacy 56.4 ml/min; Est GFR (African American) 59.2 ml/min; Est GFR (Non-African American) 51.1 ml/min; Globulin 3.6 gm/dl (2.5-4.0); Potassium 3.8 mmol/L (3.5-5.1); Total Protein 8.1 gm/dl (6.0-8.3)
[2023-03-06 20:05] LABS: Adenovirus PCR Not Detected (NotDetected); Bordetella parapertussis PCR Not Detected (NotDetected); Bordetella pertussis PCR Not Detected (NotDetected); Chlamydia pneumoniae PCR Not Detected (NotDetected); Coronavirus 229E PCR Not Detected (NotDetected); Coronavirus CoV-2 (COVID19)PCR Not Detected (NotDetected); Coronavirus HKU1 PCR Not Detected (NotDetected); Coronavirus NL63 PCR Not Detected (NotDetected); Coronavirus OC43PCR Not Detected (NotDetected); Human Metapneumovirus PCR Not Detected (NotDetected); Influenza A PCR Not Detected (NotDetected); Influenza B PCR Not Detected (NotDetected); Mycoplasma pneumoniae PCR Not Detected (NotDetected); Parainfluenza Virus 1 PCR Not Detected (NotDetected); Parainfluenza Virus 2 PCR Not Detected (NotDetected); Parainfluenza Virus 3 PCR Not Detected (NotDetected); Parainfluenza Virus 4 PCR Not Detected (NotDetected); Respiratory Syncytial VirusPCR Not Detected (NotDetected); Rhinovirus/Enterovirus PCR Not Detected (NotDetected)
[2023-03-06 20:23] LABS: Appearance Urine Clear (Clear); Bacteria Urine Automated Negative (Negative); Bilirubin Urine Negative (Negative); Blood Urine 1+ (Negative); Color Urine Yellow; Epithelial Cell Urine Auto 20-30 /lpf (0-5); Glucose Urine UA Negative (Negative); Ketones Urine Trace (Negative); Leukocyte Esterase Urine Negative (Negative); Nitrite Urine Negative (Negative); Protein Urine 2+ (Negative); RBC Urine Automated 0-4 /hpf (0-4); Specific Gravity Urine 1.026 (1.000-1.030); Urobilinogen Urine Negative (Negative); pH Urine 6.5 (4.5-7.5)
[2023-03-06] MEDS ORDERED: IBUPROFEN 200 MG TAB PO STA (20:46)
[2023-03-06] MEDS ORDERED: DOXYCYCLINE HYCLATE 100 MG in DEXTROSE 5% 100 ML IV STA (21:10)
[2023-03-06] MEDS ORDERED: CEFEPIME 2,000 MG/20 ML VIAL IV STA (21:11)
[2023-03-06 21:38] LABS: Magnesium 1.6 mg/dl (1.7-2.4)
[2023-03-06] MEDS ORDERED: MAGNESIUM SULFATE / D5W 1 GM/100 ML BAG IV STA (23:28)
[2023-03-06] MEDS ORDERED: NSS + 20MEQ KCL 20 MEQ/1,000 ML BAG IV STA (23:28)
--- NOTE | 2023-03-06 23:28 | CT Scan Report ---
Exam(s): CT EXTREMITY LEFT LOWER Without Contrast EXAM: CT Left Lower Extremity Without Intravenous Contrast CLINICAL HISTORY: Reason for exam: leg swelling. TECHNIQUE: Axial computed tomography images of the left lower extremity without intravenous contrast. CTDI is 15.6 mGy and DLP is 797.5 mGy-cm. Automated exposure control was utilized for the study. A dose lowering technique was utilized adhering to the principles of ALARA. COMPARISON: No relevant prior studies available. FINDINGS: Bones/joints: Bones are osteopenic. No acute fracture. No joint effusion at the ankle. No dislocation. Soft tissues: Subcutaneous soft tissue edema most pronounced in the distal lower extremity and at the level of the ankle. No soft tissue gas or abscess. IMPRESSION: 1. Subcutaneous soft tissue edema most pronounced in the distal lower extremity and at the level of the ankle. No soft tissue gas or abscess. 2. Bones are osteopenic for the patient's age. Consider DEXA. No acute fracture. Electronically signed by: Kenan Maria MD 03/06/23 23:27 PM
--- NOTE | 2023-03-06 23:30 | CT Scan Report ---
Exam(s): CT HEAD Without Contrast EXAM: CT Head Without Intravenous Contrast CLINICAL HISTORY: Reason for exam: villalobos. TECHNIQUE: Axial computed tomography images of the head/brain without intravenous contrast. CTDI is 35.15 mGy and DLP is 625.8 mGy-cm. Automated exposure control was utilized for the study. A dose lowering technique was utilized adhering to the principles of ALARA. COMPARISON: No relevant prior studies available. FINDINGS: Brain: No hemorrhage, extra-axial fluid collection, mass effect, or edema. Ventricles: Unremarkable. Bones/joints: Unremarkable. No fracture. Soft tissues: Unremarkable. Sinuses: No acute sinusitis. Mastoid air cells: Unremarkable as visualized. IMPRESSION: 1. No acute intracranial abnormality. Electronically signed by: Kenan Maria MD 03/06/23 23:29 PM
--- NOTE | 2023-03-06 23:51 | History & Physical Report ---
Date of Service March 06, 2023 Assessment & Plan (1) Sepsis: Plan: Sepsis secondary to recurrent LLE cellulitis ARF secondary to illness COPD, baseline lung status hx GERD chronic hyponatremia chronic anemia, hemoglobin at baseline hypothyroidism, not on maintenance medications citing severe adverse reaction in the past past tobacco/alcohol abuse Hyperglycemia rule out DM Medical telemetry CS, Doxycycline Local measures for LE cellulitis Monitor creatinine response to IVF Check hemoglobin A1c DVT prophylaxis. Lovenox subcu Full code Text document was generated using [employer] voice recognition software. It may contain grammatical or spelling errors. Kindly contact undersigned for clarification of any documentation item in question. History of Present Illness Chief Complaint: Left leg pain/swelling Primary Care Provider: Laura Wang MD History obtained from patient, family, and records. Medical history significant for COPD, GERD, chronic hyponatremia, chronic anemia (baseline hemoglobin 13), hypothyroidism, past tobacco/alcohol use. Last confinement 2015 under Orthopedics service for elective left total hip arthroplasty. 1 day history of achy left leg swelling with fever chills. No chest pain, or unusual shortness of breath. Similar episode to 2016. No tick bites as per patient. Achy headache, stomach upset with nausea as per patient. Patient consulted ER for evaluation. IV ceftriaxone administered at the ER for sepsis. Medical History as above Surgical History : Inguinal hernia repair, hip replacements Family History : Colon cancer, DM Personal/Social history : Past tobacco/alcohol abuse, disabled Allergies Allergy/AdvReac Type Severity Reaction Status Date / Time Iodinated Contrast Media Allergy Intermediate SEVERE Verified 03/06/23 19:35 HIVES propoxyphene AdvReac Intermediate N/V Verified 03/06/23 19:35 Home Medications Medication Instructions Recorded Confirmed Type omega 3-dha 500 mg-epa 100 mg-fish 1 cap PO DAILY 08/05/21 03/06/23 History oil capsule (Nuretin) omeprazole 40 mg capsule,delayed 40 mg PO DAILYBB 08/05/21 03/06/23 History release Past Med/Surg History Social History Smoking Status: Former smoker Do You Dip or Chew Tobacco: No; Hx Alcohol Use: No Hx Substance Use: No Preferred Language: Turkish Communication Ability: Effective Video Network 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 Required: No Beliefs That Will Affect Care: None Current Living Situation: Spouse Current Living Situation Comment: lives with Feels Safe at Home: Yes Safety Concerns: Feels Safe At This Time Assistive Devices: Cane and Scooter/Electric Scooter Review of Systems Review of Systems: As per HPI, all other systems reviewed and negative Physical Exam Physical Exam: GENERAL: Slightly uncomfortable, slightly anxious, pleasant, no respiratory distress SKIN: Normal color, warm HEENT: [place] palpebral conjunctivae, no ptosis, dry buccal mucosa NECK : Supple, no tenderness CHEST : CTA, no tenderness HEART : RRR, no obvious murmurs ABDOMEN: Some distention, nontender EXTREMITIES : Tender left lower leg swelling, no other conspicuous deformities noted NEUROLOGIC : Coherent, no facial asymmetry, no other gross focality Results & Data Results & Data Vital Signs (Past 12 Hours) Vital Signs Temp Pulse Resp BP Pulse Ox O2 Del Method 03/06/23 22:31 94 H 20 82/60 L 93 Room Air 03/06/23 22:30 94 H 18 94 Room Air 03/06/23 22:09 97 H 16 94 Room Air 03/06/23 21:34 37.9 C H 03/06/23 21:30 102 H 27 H 105/67 92 Room Air 03/06/23 21:00 105 H 27 H 121/67 93 Room Air 03/06/23 20:30 107 H 27 H 133/68 96 Room Air 03/06/23 19:33 104 H 03/06/23 20:09 104 H 25 H 116/72 96 Room Air 03/06/23 20:00 38.8 C H 03/06/23 19:30 103 H 25 H 120/82 97 Room Air 03/06/23 18:19 37.8 C H 118 H 20 133/74 99 Room Air Laboratory Results Laboratory Results WBC 9.40 K/ul (4.8-10.8) 03/06/23 19:24 RBC 4.19 M/uL (4.70-6.10) L 03/06/23 19:24 Hgb 13.1 g/dl (14.0-18.0) L 03/06/23 19:24 Hct 38.1 % (42.0-52.0) L 03/06/23 19:24 MCV 90.9 fL (80.0-100.0) 03/06/23 19:24 MCH 31.3 pg (25.0-34.0) 03/06/23 19: MCHC 34.4 g/dL (32.0-36.0) 03/06/23 19: RDW Std Deviation 42.8 fL (36.4-46.3) 03/06/23 19: RDW Coeff of [place] 13.0 % (11.5-14.5) 03/06/23: Plt Count 176 K/uL (130-400) 03/06/23 19: MPV 11.2 fL (9.4-12.4) 03/06/23 19:24 Immature Gran % (Auto) 0.4 % 03/06/23 19: Neut % (Auto) 88.1 % 03/06/23 19: Lymph % (Auto) 7.7 % 03/06/23: [place] % (Auto) 2.3 % 03/06/23 19:24 Eos % (Auto) 1.1 % 03/06/23 19:24 Baso % (Auto) 0.4 % 03/06/23:24 Neut # (Auto) 8.28 K/uL (1.40-6.50) H 03/06/23 19:24 Lymph # (Auto) 0.72 K/uL (1.2-3.4) L 03/06/23 19:24 [place] # (Auto) 0.22 K/uL (0.11-0.59) 03/06/23 19:24 Eos # (Auto) 0.10 K/uL (0-0.50) 03/06/23: Baso # (Auto) 0.04 K/uL (0-0.2) 03/06/23 19:24 Immature Gran # (Auto) 0.04 K/uL (0.01-0.20) 03/06/23 19:24 Sodium 133 mmol/L (136-145) L 03/06/23 19:24 Potassium 3.8 mmol/L (3.5-5.1) 03/06/23 19:24 Chloride 100 mmol/L (98-107) 03/06/23 19:24 Carbon Dioxide 24 mmol/L (21-32) 03/06/23 19:24 Anion Gap 9 (3-11) 03/06/23 19:24 BUN 26 mg/dl (6-23) H 03/06/23 19:24 Creatinine 1.48 mg/dl (0.6-1.4) H 03/06/23 19:24 Est Cr Clr Drug Dosing 56.4 ml/min 03/06/23 19:24 Est GFR ( Amer) 59.2 ml/min 03/06/23 19:24 Est GFR (Non-Af Amer) 51.1 ml/min 03/06/23 19:24 BUN/Creatinine Ratio 17.6 (10-20) 03/06/23 19:24 Glucose 160 mg/dl (70-99(Fasting)) H 03/06/23 19:24 Lactate 1.2 mmol/L (0.4-2.0) 03/06/23 19:51 Calcium 9.6 mg/dl (8.6-10.3) 03/06/23 19:24 Magnesium 1.6 mg/dl (1.7-2.4) L 03/06/23 19:24 Total Bilirubin 0.6 mg/dl (0.2-1.0) 03/06/23 19:24 AST 43 U/L (13-39) H 03/06/23 19:24 ALT 52 U/L (7-52) 03/06/23 19:24 Alkaline Phosphatase 81 U/L (34-104) 03/06/23 19:24 Total Protein 8.1 gm/dl (6.0-8.3) 03/06/23 19:24 Albumin 4.5 gm/dl (3.4-5.0) 03/06/23 19:24 Globulin 3.6 gm/dl (2.5-4.0) 03/06/23 19:24 Albumin/Globulin Ratio 1.3 (0.9-2) 03/06/23 19:24 Lipase 19 U/L (11-82) 03/06/23 19:24 Procalcitonin 0.44 ng/ml (0-0.5) 03/06/23 19:32 Urine Color Yellow 03/06/23 19:25 Urine Appearance Clear (Clear) 03/06/23 19:25 Urine pH 6.5 (4.5-7.5) 03/06/23 19:25 Ur Specific [place] 1.026 (1.000-1.030) 03/06/23 19:25 Urine Protein 2+ (Negative) H 03/06/23 19:25 Urine Glucose (UA) Negative (Negative) 03/06/23 19:25 Urine Ketones Trace (Negative) H 03/06/23 19:25 Urine Blood 1+ (Negative) H 03/06/23 19:25 Urine Nitrite Negative (Negative) 03/06/23 19:25 Urine Bilirubin Negative (Negative) 03/06/23 19:25 Urine Urobilinogen Negative (Negative) 03/06/23 19:25 Ur Leukocyte Esterase Negative (Negative) 03/06/23 19:25 Urine WBC (Auto) 1-5 /hpf (0-5) 03/06/23 19:25 Urine RBC (Auto) 0-4 /hpf (0-4) 03/06/23 19:25 U Hyaline Cast (Auto) 1-5 /lpf (0-5) 03/06/23 19:25 U Epithel Cells (Auto) 20-30 /lpf (0-5) H 03/06/23 19:25 Urine Bacteria (Auto) Negative (Negative) 03/06/23 19:25 Adenovirus (PCR) Not Detected (NotDetected) 03/06/23 19:00 B. pertussis DNA (PCR) Not Detected (NotDetected) 03/06/23 19:00 B.parapertussis DNA PCR Not Detected (NotDetected) 03/06/23 19:00 C. pneumoniae DNA (PCR) Not Detected (NotDetected) 03/06/23 19:00 Coronavirus OC43 (PCR) Not Detected (NotDetected) 03/06/23 19:00 Coronavirus HKU1 (PCR) Not Detected (NotDetected) 03/06/23 19:00 Coronavirus 229E (PCR) Not Detected (NotDetected) 03/06/23 19:00 SARS-CoV-2 (PCR) Not Detected (NotDetected) 03/06/23 19:00 Coronavirus NL63 (PCR) Not Detected (NotDetected) 03/06/23 19:00 Human Metapneumovir PCR Not Detected (NotDetected) 03/06/23 19:00 Influenza Type A (PCR) Not Detected (NotDetected) 03/06/23 19:00 Influenza Type B (PCR) Not Detected (NotDetected) 03/06/23 19:00 M. pneumoniae (PCR) Not Detected (NotDetected) 03/06/23 19:00 Parainfluenza 1 (PCR) Not Detected (NotDetected) 03/06/23 19:00 Parainfluenza 2 (PCR) Not Detected (NotDetected) 03/06/23 19:00 Parainfluenza 3 (PCR) Not Detected (NotDetected) 03/06/23 19:00 Parainfluenza 4 (PCR) Not Detected (NotDetected) 03/06/23 19:00 RSV (PCR) Not Detected (NotDetected) 03/06/23 19:00 Entero/Rhino (PCR) Not Detected (NotDetected) 03/06/23 19:[address] 03/06/23 21:22 Exam(s): CT HEAD Without Contrast EXAM: CT Head Without Intravenous Contrast CLINICAL HISTORY: Reason for exam: villalobos. TECHNIQUE: Axial computed tomography images of the head/brain without intravenous contrast. CTDI is 35.15 mGy and DLP is 625.8 mGy-cm. Automated exposure control was utilized for the study. A dose lowering technique was utilized adhering to the principles of ALARA. COMPARISON: No relevant prior studies available. FINDINGS: Brain: No hemorrhage, extra-axial fluid collection, mass effect, or edema. Ventricles: Unremarkable. Bones/joints: Unremarkable. No fracture. Soft tissues: Unremarkable. Sinuses: No acute sinusitis. Mastoid air cells: Unremarkable as visualized. IMPRESSION: 1. No acute intracranial abnormality. Electronically signed by: Kenan Maria MD 03/06/23 23:[address] 03/06/23 21:28 Exam(s): CT EXTREMITY LEFT LOWER Without Contrast EXAM: CT Left Lower Extremity Without Intravenous Contrast CLINICAL HISTORY: Reason for exam: leg swelling. TECHNIQUE: Axial computed tomography images of the left lower extremity without intravenous contrast. CTDI is 15.6 mGy and DLP is 797.5 mGy-cm. Automated exposure control was utilized for the study. A dose lowering technique was utilized adhering to the principles of ALARA. COMPARISON: No relevant prior studies available. FINDINGS: Bones/joints: Bones are osteopenic. No acute fracture. No joint effusion at the ankle. No dislocation. Soft tissues: Subcutaneous soft tissue edema most pronounced in the distal lower extremity and at the level of the ankle. No soft tissue gas or abscess. IMPRESSION: 1. Subcutaneous soft tissue edema most pronounced in the distal lower extremity and at the level of the ankle. No soft tissue gas or abscess. 2. Bones are osteopenic for the patient's age. Consider DEXA. No acute fracture. Electronically signed by: Kenan Maria MD 03/06/23 23:27 PM LLE venous Dopplers negative for DVT.
[2023-03-06] MEDS ORDERED: oxyCODONE HCL IR 5 MG TAB (IMMEDIATE RELEASE) PO STA (23:54)
[2023-03-06] MEDS ORDERED: ACETAMINOPHEN 325 MG TAB PO PRN (23:54)
--- NOTE | 2023-03-07 02:50 | Ultrasound Report ---
Exam(s): US VENOUS LEFT LOWER EXTREMITY EXAM: US Duplex Left Lower Extremity Veins CLINICAL HISTORY: Reason for exam: swelling. TECHNIQUE: Real-time duplex ultrasound scan of the left lower extremity veins integrating B-mode two-dimensional vascular structure, Doppler spectral analysis, color flow Doppler imaging and compression. COMPARISON: No relevant prior studies available. FINDINGS: Deep veins: Unremarkable. The visualized deep veins of the left lower extremity are compressible with color flow. No visualized thrombus. Superficial veins: Unremarkable. Soft tissues: No acute findings. Lymph nodes: Reactive appearing lymph nodes within the left groin. IMPRESSION: No DVT in the left lower extremity. Electronically signed by: Kenan Maria MD 03/07/23 02:48 AM
[2023-03-07] MEDS ORDERED: XOPENEX/ATROVENT 1.25mg/0.5MG NEB COMBO NEB STA (04:37)
[2023-03-07] MEDS ORDERED: IPRATROPIUM BROMIDE NEB SOLN 0.02% 2.5 ML VIAL INH STA (04:37)
[2023-03-07] MEDS ORDERED: LEVALBUTEROL 1.25 MG/3 ML NEB NEB STA (04:37)
[2023-03-07] MEDS: PANTOprazole 40 MG TAB PO SCH (05:23)
[2023-03-07 06:48] LABS: Hematocrit (blood only) 37.2 % (42.0-52.0); Hemoglobin 12.6 g/dl (14.0-18.0); Mean Corpuscular Hemoglobin 31.2 pg (25.0-34.0); Mean Corpuscular Hgb Conc 33.9 g/dL (32.0-36.0); Mean Corpuscular Volume 92.1 fL (80.0-100.0); Mean Platelet Volume 11.4 fL (9.4-12.4); Platelet Count 138 K/uL (130-400); RDW Coefficient of Variation 13.3 % (11.5-14.5); RDW Standard Deviation 45.6 fL (36.4-46.3); Red Blood Count 4.04 M/uL (4.70-6.10); White Blood Count 7.75 K/ul (4.8-10.8)
[2023-03-07 06:59] LABS: BUN Creatinine Ratio 17.6 (10-20); Calcium 8.2 mg/dl (8.6-10.3); Est GFR (African American) 86.6 ml/min; Est GFR (Non-African American) 74.7 ml/min; Magnesium 1.8 mg/dl (1.7-2.4); Potassium 3.6 mmol/L (3.5-5.1)
[2023-03-07 07:06] LABS: Basophils # (auto) 0.02 K/uL (0-0.2); Basophils % (auto) 0.3 %; Immature Granulocytes # (auto) 0.05 K/uL (0.01-0.20); Immature Granulocytes % (auto) 0.6 %; Lymphocytes # (auto) 1.29 K/uL (1.2-3.4); Lymphocytes % (auto) 16.6 %; Monocytes # (auto) 0.41 K/uL (0.11-0.59); Monocytes % (auto) 5.3 %; Neutrophils # (auto) 5.98 K/uL (1.40-6.50); Neutrophils % (auto) 77.2 %
--- NOTE | 2023-03-07 07:06 | XRay Report ---
XR chest 1V portable CLINICAL HISTORY: renal failure TECHNIQUE: Single frontal radiograph of the chest was obtained. Comparison: Comparison is made to chest radiographs 08/05/2014 FINDINGS: No lines and tubes are seen. The cardiomediastinal silhouette is normal. The lungs are clear. No evid ence of pleural effusion or pneumothorax. IMPRESSION: No acute chest disease. ACT 112: Negative or not required by law. Electronically signed by: Grant Le M.D. 03/07/2023 7:03 AM
[2023-03-07 07:28] LABS: Estimated Average Glucose 131 mg/dl; Hemoglobin A1C 6.2 % (4.5-5.6)
[2023-03-07] MEDS: ENOXAPARIN INJ 40 MG/0.4 ML SYR SQ SCH (07:55)
[2023-03-07] MEDS ORDERED: DOXYCYCLINE HYCLATE 100 MG CAP PO SCH (09:00)
[2023-03-07] MEDS: oxyCODONE HCL IR 5 MG TAB (IMMEDIATE RELEASE) PO PRN (10:21)
[2023-03-07] MEDS: LACTATED RINGER'S 1,000 ML IV SCH ×2 (11:19→23:05)
[2023-03-07] MEDS: ceFAZolin 2000MG 2,000 MG/15 ML SYR IV SCH ×2 (11:54→18:22)
[2023-03-07] MEDS: ACETAMINOPHEN 325 MG TAB PO PRN ×2 (11:54→19:24)
--- NOTE | 2023-03-07 13:38 | Hospitalist Progress Note ---
Date of Service March 07, 2023 Assessment & Plan (1) Cellulitis: (2) Sepsis: Plan 57-year-old male with PMH of COPD, GERD, chronic hyponatremia, chronic anemia [baseline hemoglobin 13], hypothyroidism, past tobacco/alcohol use presented to the ED 03/07 with complaint of 1 day history of achy left leg swelling with fever and chills. Patient reports ongoing cough for several weeks productive of minimal clear sputum; denies any sore throat. Patient reports having similar LLE episode in 2016. No tick bites per patient. He is being managed for the following: Sepsis POA: Temperature, [place], RR elevated plus LLE cellulitis. Procalcitonin high normal, lactic acid normal at presentation. LLE cellulitis Likely predisposed secondary to ongoing lower extremity swelling with crack in skin secondary to distention from swelling. Pt w/ c/o LE swelling for long time. BNP slightly elevated at presentation, will get echo. Consider cardiology consult pending echo. Outpatient chart review 03/07 with dobutamine stress echo on 02/11/2014 with EF of 55 to 59% [normal]. Admitting imagings: LLE Doppler: Negative for DVT. LLE CT: Subcutaneous soft tissue edema, osteopenia noted CT head and CXR: No acute finding Patient is still tachycardic and febrile. We will add cefazolin IV, change p.o. Doxy to IV. We will add IV fluids, continue for now. Encourage p.o. intake. Continue telemetry monitoring. We will follow echo. Follow admitting blood culture. Acute renal failure: Likely secondary to acute illness, prerenal. Status post IV fluid in ED, resolved. Osteopenia: Noted in CT LLE, will send vitamin D level, follow. Patient aware to coordinate with PCP office for considering DEXA scan as an outpatient. Other chronic medical conditions: COPD, baseline lung status hx GERD: Continue with home PPI chronic hyponatremia: Stable, will monitor chronic anemia, hemoglobin at baseline hypothyroidism, not on maintenance medications citing severe adverse reaction in the past past tobacco/alcohol abuse Hyperglycemia rule out DM: A1c of 6.2, prediabetes. Will discuss with patient hai in detail regarding long-term management. DVT prophylaxis: Lovenox Full code Admission and Anticipated Discharge Date Admission Date: March 06, 2023 Subjective Patient seen and examined at bedside as a follow-up of sepsis secondary to re current LLE cellulitis. Patient was lying in bed, on room air, was sleeping, woke up to my exam, reports feeling about the same and has been febrile, continue to use Tylenol as appropriate. Patient denies any sore throat or new cough. Reports having cough for several weeks now with clear sputum. Patient denies headache or dizziness, does not report feeling better. Patient has been eating okay. Patient reports being constipated and would like to try bowel regimen. Continue with appetite, will put him on IV fluid for now secondary to fever, continue as needed Tylenol, will add IV cefazolin, will change p.o. Doxy to IV. Physical Exam Physical Exam: GENERAL: Alert and oriented x3. NAD, on RA. HEENT: No pallor, no icterus. Pupils equal, round and reactive to light. Oral mucosa dry. NECK: No JVD, no neck masses. HEART: S1 and S2 heard. tachycardia. No murmur, no gallop. RESPIRATORY SYSTEM: Normal AP diameter. No accessory muscle use. No wheezing, no crackles. ABDOMEN: Soft, bowel sounds present, nontender, no distention. CENTRAL NERVOUS SYSTEM: No facial droop. Speech is clear. Obeys simple commands. Moves extremities. EXTREMITIES: LLE 2+ w/ erythema/tenderness/warmth. RLE 1+ pitting edema Results & Data Results & Data Vital Signs (Past 12 Hours) Vital Signs Temp Pulse Pulse Pulse Resp BP Pulse Ox 03/07/23 11:44 39.6 C H 100 H 19 119/58 L 93 03/07/23 07:35 37.4 C 114 H 20 137/60 96 03/07/23 07:25 03/07/23 05:02 99 H 16 98 03/07/23 04:18 92 H 03/07/23 03:25 36.7 C 90 20 113/65 98 03/07/23 02:12 36.4 C L 83 18 120/64 98 O2 Del Method 03/07/23 11:44 Room Air 03/07/23 07:35 Room Air 03/07/23 07:25 Room Air 03/07/23 05:02 Room Air 03/07/23 04:18 03/07/23 03:25 Room Air 03/07/23 02:12 Room Air
[2023-03-07] MEDS: DOXYCYCLINE HYCLATE 100 MG in DEXTROSE 5% 100 ML IV SCH (19:24)
[2023-03-07] MEDS: LEVALBUTEROL 1.25 MG/3 ML NEB NEB PRN (19:30)
[2023-03-08] MEDS: ACETAMINOPHEN 325 MG TAB PO PRN ×3 (03:12→22:11)
[2023-03-08] MEDS: ceFAZolin 2000MG 2,000 MG/15 ML SYR IV SCH (03:13)
[2023-03-08] MEDS ORDERED: KETOROLAC TROMETHAMINE 15 MG/ML VIAL IV ONE (03:25)
--- NOTE | 2023-03-08 03:57 | Communication Note ---
Date of Service: March 08, 2023 Patient complaining of left hand swelling as per RN. Patient currently febrile and tachycardic. No previous episodes. No recent trauma as per patient. AP Sepsis secondary to left hand cellulitis Ongoing cefazolin and doxycycline Rx for left lower extremity cellulitis. Rule out bony pathology Change cefazolin to cefepime for broader gram-negative coverage continue doxycycline Plain left hand x-ray
[2023-03-08] MEDS: CEFEPIME 2,000 MG in SYRINGE 0 ML IV SCH ×3 (04:13→22:31)
[2023-03-08] MEDS: PANTOprazole 40 MG TAB PO SCH (05:43)
--- NOTE | 2023-03-08 06:57 | XRay Report ---
XR hand LT min 3V routine HISTORY: 57 years-old Male swelling acute pain and swelling of the left hand COMPARISON: None TECHNIQUE: 3 views of the left hand FINDINGS: Demineralized appearance of the bones. Scapholunate interval measures in the upper limits of normal a t 3 mm. Osteoarthritis of the hand and wrist, moderate in the first carpometacarpal joint in otherwis e predominantly mild. Ill-defined linear lucency is noted involving the distal neck of the fifth meta carpal. No acute displaced fracture or dislocation. IMPRESSION: 1. No acute displaced fracture or dislocation. 2. Questioned acute nondisplaced fracture of the fifth metacarpal. Correlate with point tenderness. ACT 112: Negative or not required by law. The above report was generated using voice recognition software. It may contain grammatical, syntax o r spelling errors. Electronically signed by: Robert Murillo M.D. 03/08/2023 6:55 AM
[2023-03-08] MEDS: DOCUSATE SODIUM/SENNA 50/8.6MG TAB PO SCH (08:46)
[2023-03-08] MEDS: ADVANCED PROBIOTIC 1250 MG CAPSULE PO SCH (08:46)
[2023-03-08] MEDS: oxyCODONE HCL IR 5 MG TAB (IMMEDIATE RELEASE) PO PRN (08:47)
[2023-03-08] MEDS: ENOXAPARIN INJ 40 MG/0.4 ML SYR SQ SCH (08:47)
[2023-03-08] MEDS: DOXYCYCLINE HYCLATE 100 MG in DEXTROSE 5% 100 ML IV SCH ×2 (08:50→22:31)
[2023-03-08] MEDS: LEVALBUTEROL 1.25 MG/3 ML NEB NEB PRN (08:52)
[2023-03-08 09:26] LABS: Hematocrit (blood only) 33.5 % (42.0-52.0); Hemoglobin 11.4 g/dl (14.0-18.0); Mean Corpuscular Hemoglobin 31.1 pg (25.0-34.0); Mean Corpuscular Volume 91.3 fL (80.0-100.0); Mean Platelet Volume 11.1 fL (9.4-12.4); Platelet Count 154 K/uL (130-400); RDW Coefficient of Variation 13.5 % (11.5-14.5); RDW Standard Deviation 45.6 fL (36.4-46.3); Red Blood Count 3.67 M/uL (4.70-6.10); White Blood Count 8.96 K/ul (4.8-10.8)
[2023-03-08 09:45] LABS: BUN Creatinine Ratio 11.6 (10-20); Calcium 8.6 mg/dl (8.6-10.3); Creatinine Clr Calc Pharmacy 87.3 ml/min; Est GFR (African American) 101.1 ml/min; Est GFR (Non-African American) 87.3 ml/min; Potassium 3.7 mmol/L (3.5-5.1)
[2023-03-08 09:47] LABS: Magnesium 1.8 mg/dl (1.7-2.4)
[2023-03-08] MEDS ORDERED: SODIUM PHOSPHATE 3 MMOL/1 ML INFUSION IV STA (10:13)
[2023-03-08] MEDS ORDERED: SODIUM PHOSPHATE 21 MMOL in SODIUM CHLORIDE 0.9% 500 ML IV ONE (10:30)
[2023-03-08] MEDS: LACTATED RINGER'S 1,000 ML IV SCH (11:36)
--- NOTE | 2023-03-08 14:55 | Hospitalist Progress Note ---
Date of Service March 08, 2023 Assessment & Plan (1) Cellulitis: (2) Sepsis: Plan 57-year-old male with PMH of COPD, GERD, chronic hyponatremia, chronic anemia [baseline hemoglobin 13], hypothyroidism, past tobacco/alcohol use presented to the ED 03/07 with complaint of 1 day history of achy left leg swelling with fever and chills. Patient reports ongoing cough for several weeks productive of minimal clear sputum; denies any sore throat. Patient reports having similar LLE episode in 2016. No tick bites per patient. He is being managed for the following: Sepsis POA: Temperature, [place], RR elevated plus LLE cellulitis. Procalcitonin high normal, lactic acid normal at presentation. LLE cellulitis Likely predisposed secondary to ongoing lower extremity swelling with crack in skin secondary to distention from swelling. Pt w/ c/o LE swelling for long time. BNP slightly elevated at presentation, echo obtained to rule out underlying heart failure, came back EF 60 to 65% with normal LV and RV size and function. Outpatient chart review 03/07 with dobutamine stress echo on 02/11/2014 with EF of 55 to 59% [normal]. Admitting imagings: LLE Doppler: Negative for DVT. LLE CT: Subcutaneous soft tissue edema, osteopenia noted CT head and CXR: No acute finding Patient is still tachycardic and febrile. Procalcitonin up trended. IV cefazolin escalated to cefepime for broader coverage, continue with doxycycline Continue with IV fluids until appetite normal, encourage p.o. intake. Tylenol, follow-up admitting cultures. Continue with telemetry monitoring. Acute renal failure: Likely secondary to acute illness, prerenal. Status post IV fluid in ED, resolved. Osteopenia: Noted in CT LLE, will send vitamin D level, follow. Patient aware to coordinate with PCP office for considering DEXA scan as an outpatient. Vitamin D deficiency: Vitamin D level 19.8, vitamin D 5000 units daily while inp atient, then 1000 units daily on discharge. Repeat vitamin D level in 3 months. Abnormal x-ray left hand: Questionable acute nondisplaced fracture of the fifth metacarpal. Patient's x-ray left hand was obtained 03/07 to 03/08 overnight due to concerns of left hand cellulitis due to patient complaining left hand pain. This was resolved by a.m. exam with no overlying erythema or tenderness. Orthopedics consult, await recommendation. Other chronic medical conditions: COPD, baseline lung status hx GERD: Continue with home PPI chronic hyponatremia: Stable, will monitor chronic anemia, hemoglobin at baseline hypothyroidism, not on maintenance medications citing severe adverse reaction in the past past tobacco/alcohol abuse Hyperglycemia rule out DM: A1c of 6.2, prediabetes. 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 DVT prophylaxis: Lovenox Full code Admission and Anticipated Discharge Date Admission Date: March 06, 2023 Subjective Patient seen and examined at bedside as a follow-up of sepsis secondary to recurrent LLE cellulitis. Patient was lying in bed, on room air, has been febrile overnight, noted to have some swelling and erythema over his left hand but resolved by morning per patient, reports feeling slightly better today. Patient's antibiotic has been escalated to include broader spectrum. Continue to use Tylenol as appropriate. Patient denies any sore throat or new cough. Reports having cough for several weeks now with clear sputum at presentation. Patient denies headache or dizziness. Patient reports poor appetite but has no further nausea and vomiting while in hospital. Patient reports being constipated, continue with bowel regimen. Phosphorus was critical, replaced. Continue with IV fluids until appetite better. Physical Exam Physical Exam: GENERAL: Alert and oriented x3. NAD, on RA. HEENT: No pallor, no icterus. Pupils equal, round and reactive to light. Oral mucosa dry. NECK: No JVD, no neck masses. HEART: S1 and S2 heard. tachycardia. No murmur, no gallop. RESPIRATORY SYSTEM: Normal AP diameter. No accessory muscle use. No wheezing, no crackles. ABDOMEN: Soft, bowel sounds present, nontender, no distention. CENTRAL NERVOUS SYSTEM: No facial droop. Speech is clear. Obeys simple commands. Moves extremities. EXTREMITIES: LLE 2+ w/ erythema/tenderness/warmth. RLE 1+ pitting edema Results & Data Results & Data Vital Signs (Past 12 Hours) Vital Signs Temp Pulse Pulse Resp BP Pulse Ox O2 Del Method 03/08/23 14:30 37.3 C 03/08/23 11:30 39.0 C H 104 H 18 133/75 97 Room Air 03/08/23 09:36 85 03/08/23 09:36 Room Air 03/08/23 08:52 100 H 24 98 Room Air 03/08/23 07:50 36.9 C 86 20 113/60 98 Room Air 03/08/23 03:08 38.4 C H 105 H 19 127/61 94 Room Air
[2023-03-08] MEDS: CHOLECALCIFEROL 5,000 UNITS 125 MCG TAB PO SCH (14:58)
[2023-03-08] MEDS: LORazepam 0.5 MG TAB PO PRN (22:31)
--- NOTE | 2023-03-09 01:25 | Consultation Report ---
DATE OF CONSULTATION: 03/08/2023 PERTINENT HISTORY: This is a 57-year-old gentleman seen at request of Dr. Brenna Nicole and Dr. Justice Wang after the patient noted severe swelling and pain of his left lower extremity resulting in difficulty with ambulation over a period of approximately 24-48 hours prior to admission. He states he has intermittent swelling of the left lower extremity and is having multiple occasions variable ti mes over the last 5-7 years. He had no chest pain or unusual shortness of breath. He had no tick bi poncho per the patient. He had some headache, stomach upset, and nausea. He presented to the Emergency Department at [facility]. He was evaluated. Laboratories and imaging was obtained and t he patient was admitted to the Hospitalist Service with diagnosis of sepsis secondary to left lower e xtremity cellulitis, acute renal failure, COPD, and other associated medical comorbidities. The salomon ent denies any loss of consciousness or any trauma; however, he did have left hand pain. Radiographs were obtained by the Medical Service revealed a nondisplaced fracture of the left 5th metacarpal dis serg one-third. No other associated injuries. PAST MEDICAL HISTORY: 1. Sepsis. 2. Acute renal failure. 3. COPD. 4. Reflux. 5. Chronic hyponatremia. 6. Chronic anemia. 7. Hypothyroidism. 8. Past tobacco and alcohol abuse, now sober. 9. Hyperglycemia. PAST SURGICAL HISTORY: 1. Inguinal hernia repair. 2. Bilateral total hip arthroplasty. ALLERGIES: IODINATED CONTRAST MEDIA WITH SEVERE HIVES AND PROPOXYPHENE WITH NAUSEA AND VOMITING. HOME MEDICATIONS: 1. [place] 3. 2. Omeprazole. SOCIAL HISTORY: Former smoker, former alcoholic. Denies using tobacco or alcohol now. Denies drug use. He is and lives with his . He is disabled. He occasionally uses a cane and davin ctric scooter for ambulation. PHYSICAL EXAMINATION: This is a 57-year-old gentleman, sitting upright in his bedside chair. He is alert and oriented x3. Speech clear and fluent. Affect is appropriate. Examination of the left burgess d demonstrates skin warm, dry, and intact. Cap refill less than 2 seconds. Radial pulse 2/4. Radia l, ulnar, and median nerve sensory and motor function intact. He has some limitations with a termina l flexion and terminal extension of the left hand fifth metatarsophalangeal joint due to some mild pa in. He has tenderness to palpation over the distal one-third fifth metacarpal, left hand. Minimal e matilde. Sensation is intact to left upper extremity. Examination of the left lower extremity demonstr ates significant cellulitis. Edema and tenderness to palpation over the left lower extremity. There is some erythema without significant streaking. No pain with passive extension or flexion of the le ft lower extremity. Compartments are edematous, however, not tense. Sensation is intact bilateral l ower extremities. Pedal pulses are palpable 2/4 bilaterally. He is able to spontaneously move his t oes in bilateral ankles, albeit due to soft tissue impingement on the left, he has less active range of motion of the left compared to the right. IMAGING STUDIES: Radiographs of the left hand demonstrate a nondisplaced fifth metacarpal distal one -third fracture. Left lower extremity Doppler negative for DVT. Left lower extremity CT, subcutaneou s soft tissue edema, osteopenia noted. LABORATORIES: Reviewed. IMPRESSION: 1. Left hand distal one-third fifth metacarpal fracture, nondisplaced, S62.337. 2. Left lower extremity edema. 3. Left lower extremity cellulitis. RECOMMENDATION: We will treat the hand nonoperatively. There is no need for bracing as the patient has limited ambulation and he has minimal complaints of his left hand. I offered him the use of a re movable Velcro brace and the patient refused. Left lower extremity edema and cellulitis should be co ntinued to be treated with IV antibiotics. Should he fail to show significant improvement with IV an tibiotics and protection of ambulation, we would consider MRI of the left ankle as this appears to be an area where he has the greatest tenderness to palpation to rule out osteomyelitis or other occult fracture or pathology none visible on plain radiographs. The patient may follow up in clinic for [facility] if symptoms persist. Thank you for the opportunity to consult in care of this patient. Job ID: [id number]
[2023-03-09] MEDS: LACTATED RINGER'S 1,000 ML IV SCH (01:44)
[2023-03-09] MEDS: CEFEPIME 2,000 MG in SYRINGE 0 ML IV SCH ×3 (03:32→19:50)
[2023-03-09] MEDS: PANTOprazole 40 MG TAB PO SCH (05:52)
[2023-03-09] MEDS: DOXYCYCLINE HYCLATE 100 MG in DEXTROSE 5% 100 ML IV SCH (08:18)
[2023-03-09] MEDS: ACETAMINOPHEN 325 MG TAB PO PRN ×2 (08:18→19:50)
[2023-03-09] MEDS: ENOXAPARIN INJ 40 MG/0.4 ML SYR SQ SCH (08:19)
[2023-03-09] MEDS: CHOLECALCIFEROL 5,000 UNITS 125 MCG TAB PO SCH (08:19)
[2023-03-09] MEDS: DOCUSATE SODIUM/SENNA 50/8.6MG TAB PO SCH (08:19)
[2023-03-09] MEDS: ADVANCED PROBIOTIC 1250 MG CAPSULE PO SCH (08:19)
[2023-03-09 09:32] LABS: Hematocrit (blood only) 29.3 % (42.0-52.0); Hemoglobin 10.1 g/dl (14.0-18.0); Mean Corpuscular Hemoglobin 30.3 pg (25.0-34.0); Mean Corpuscular Hgb Conc 34.5 g/dL (32.0-36.0); Mean Platelet Volume 11.6 fL (9.4-12.4); Platelet Count 166 K/uL (130-400); RDW Coefficient of Variation 13.4 % (11.5-14.5); Red Blood Count 3.33 M/uL (4.70-6.10); White Blood Count 7.97 K/ul (4.8-10.8)
[2023-03-09 09:46] LABS: Anion Gap 10 (3-11); BUN Creatinine Ratio 11.7 (10-20); Blood Urea Nitrogen 9 mg/dl (6-23); Calcium 8.1 mg/dl (8.6-10.3); Carbon Dioxide 20 mmol/L (21-32); Chloride 100 mmol/L (98-107); Creatinine Clr Calc Pharmacy 108.7 ml/min; Est GFR (African American) 115.1 ml/min; Est GFR (Non-African American) 99.3 ml/min; Glucose 214 mg/dl (70-99(Fasting)); Potassium 3.6 mmol/L (3.5-5.1); Sodium 130 mmol/L (136-145)
[2023-03-09 09:49] LABS: Magnesium 1.6 mg/dl (1.7-2.4); Phosphorus < 1.0 mg/dl (2.5-4.9)
[2023-03-09] MEDS ORDERED: POTASSIUM PHOS 3 MMOL/1 ML INFUSION IV STA (09:54)
[2023-03-09] MEDS ORDERED: POTASSIUM PHOSPHATE 40 MMOL in SODIUM CHLORIDE 0.9% 1000ML 1,000 ML IV ONE (10:00)
[2023-03-09] MEDS: LORazepam 0.5 MG TAB PO PRN ×2 (10:19→19:50)
[2023-03-09] MEDS: MAGNESIUM SULFATE / D5W 1 GM/100 ML BAG IV SCH ×2 (11:16→12:42)
[2023-03-09] MEDS ORDERED: POLYETHYLENE (MIRALAX) 17 GM PACK PO PRN (11:29)
[2023-03-09] MEDS ORDERED: VANCOMYCIN CONSULT ACTIVE PRN (12:44)
--- NOTE | 2023-03-09 13:02 | Hospitalist Progress Note ---
Date of Service March 09, 2023 Assessment & Plan (1) Cellulitis: (2) Sepsis: Plan 57-year-old male with PMH of COPD, GERD, chronic hyponatremia, chronic anemia [baseline hemoglobin 13], hypothyroidism, past tobacco/alcohol use presented to the ED 03/07 with complaint of 1 day history of achy left leg swelling with fever and chills. Patient reports ongoing cough for several weeks productive of minimal clear sputum; denies any sore throat. Patient reports having similar LLE episode in 2016. No tick bites per patient. He is being managed for the following: Sepsis POA: Temperature, [place], RR elevated plus LLE cellulitis. Procalcitonin high normal, lactic acid normal at presentation. LLE cellulitis Likely predisposed secondary to ongoing lower extremity swelling with crack in skin secondary to distention from swelling. Pt w/ c/o LE swelling for long time. BNP slightly elevated at presentation. Echo was obtained to rule out underlying heart failure, came back EF 60 to 65% with normal LV and RV size and function. Outpatient chart review 03/07 with dobutamine stress echo on 02/11/2014 with EF of 55 to 59% Admitting imagings: LLE Doppler: Negative for DVT. LLE CT: Subcutaneous soft tissue edema, osteopenia noted CT head and CXR: No acute finding Patient is still having intermittent fever. Procalcitonin up trended to 1.45 yesterday Currently on cefepime and doxycycline. Change doxycycline to vancomycin. Blood cultures negative. If fever recur, redraw Get MRI of left leg and ankle Surgery eval and recs appreciated Acute renal failure: Likely secondary to acute illness, prerenal. Status post IV fluid in ED Now resolved. Hypomagnesemia and Hypophosphatemia today. Replete and monitor Osteopenia: Vitamin D deficiency: Noted in CT LLE Vitamin D level is 19.8, Vit D po 1000U daily Patient aware to coordinate with PCP office for considering DEXA scan as an outpatient. LEft hand distal one-third fifth metacarpal fracture: Questionable acute nondisplaced fracture of the fifth metacarpal. Patient's x-ray left hand was obtained 03/07 to 03/08 overnight due to concerns of left hand cellulitis due to patient complaining left hand pain. Ortho recs noted. No surgery needed Other chronic medical conditions: COPD, baseline lung status hx GERD: Continue with home PPI chronic hyponatremia: Stable, will monitor chronic anemia, hemoglobin at baseline hypothyroidism, not on maintenance medications citing severe adverse reaction in the past past tobacco/alcohol abuse Hyperglycemia rule out DM: A1c of 6.2, prediabetes. Pt to f/u w/ PCP for terminal supervisor follow up/management. DVT prophylaxis: Lovenox Full code I spent a total of 50 minutes coordinating, documenting and providing care for this patient excluding time spent in performance of separately billed services Admission and Anticipated Discharge Date Admission Date: March 06, 2023 Subjective Patient seen and examined Reports swelling around left thigh is improved Still have significant swelling/tenderness over Left leg/ankle and foot Having intermittent fevers Reports constipation Denied nausea, vomiting, abd pain Denied dysuria, freq, urgency Denied cough, chest pain, SOB Physical Exam Constitutional: no acute distress Eyes: PERRL, conjunctivae normal, anicteric sclerae ENMT: external ear and nose normal, oropharynx normal Respiratory: normal respiratory effort, lungs clear to auscultation Cardiovascular: Rate/Rhythm: regular rate and regular rhythm S1 S2 Gastrointestinal (Abdomen): normal bowel sounds, soft, nontender, no hepatosplenomegaly Musculoskeletal: Left LE swelling especially from knee to foot Erythema and tenderness over left lower leg especially in ankle and foot Neurologic: PERRL, EOMI, accommodation nl, no face palsy, no dysarthria Psychiatric: A+Ox3, euthymic affect Results & Data Results & Data Vital Signs (Past 12 Hours) Vital Signs Temp Pulse Pulse Resp BP Pulse Ox Pulse Ox 03/09/23 12:01 36.9 C 88 20 110/71 95 03/09/23 08:00 03/09/23 11:46 105 H 03/09/23 07:59 38.7 C H 114 H 18 129/67 96 03/09/23 03:00 37.0 C 99 H 20 126/70 96 03/09/23 02:00 94 03/09/23 01:31 O2 Del Method O2 Del Method 03/09/23 12:01 Room Air 03/09/23 08:00 Room Air 03/09/23 11:46 03/09/23 07:59 Room Air 03/09/23 03:00 Room Air 03/09/23 02:00 Room Air 03/09/23 01:31 Room Air Laboratory Results Abnormal lab results 03/09/23 03/09/23 Range/Units 08:37 08:37 RBC 3.33 L (4.70-6.10) M/uL Hgb 10.1 L (14.0-18.0) g/dl Hct 29.3 L (42.0-52.0) % Sodium 130 L (136-145) mmol/L Carbon Dioxide 20 L (21-32) mmol/L Glucose 214 H (70-99(Fasting)) mg/dl Calcium 8.1 L (8.6-10.3) mg/dl Phosphorus < 1.0 L* (2.5-4.9) mg/dl Magnesium 1.6 L (1.7-2.4) mg/dl
[2023-03-09] MEDS ORDERED: VANCOMYCIN HCL 2,000 MG in SODIUM CHLORIDE 0.9% 500 ML IV ONE (13:15)
--- NOTE | 2023-03-09 14:58 | Pharmacy Report ---
Pharmacy Vanc AUC Short Note - Date of Service March 09, 2023 - Assessment & Plan Assessment 57 year old M receiving vancomycin and cefepime for treatment of cellulitis. Pertinent microbiologic data includes: blood culture currently NGTD. Day # 1 of antimicrobial therapy. Plan Vancomycin * AUC/YENY is the preferred PK/PD target for vancomycin * AUC guided dosing is effective and associated with decreased risk of nephrotoxicity compared to traditional trough targets * vancomycin 1250 mg IV q12 is predicted to achieve target AUC/YENY of 400-600 mg/L.hr and may be associated with a 12 % risk of nephrotoxicit * Trough to be ordered if continued > 48 hours Pharmacy will continue to follow and will adjust dose/frequency as necessary. Thank you.
[2023-03-09] MEDS: oxyCODONE HCL IR 5 MG TAB (IMMEDIATE RELEASE) PO PRN ×2 (16:11→19:49)
[2023-03-09] MEDS ORDERED: GADOBUTROL 65ML VIAL IV ONE (18:29)
--- NOTE | 2023-03-09 19:49 | Magnetic Resonance Report ---
Exam(s): MRI EXTREMITY W/WO Contrast IV Amt: 8.5 Gadavist EXAM: MR Left Lower Extremity Without and With Intravenous Contrast, Knee CLINICAL HISTORY: Reason for exam: Rule out abscess/OM. TECHNIQUE: Multiplanar magnetic resonance images of the left knee without and with intravenous contrast. CONTRAST: Patient received 8.5 Gadavist of IV contrast COMPARISON: No relevant prior studies available. FINDINGS: Circumferential subcutaneous edema about the calf, with mild skin thickening. Correlate for cellulitis. No fluid collection or abscess. No definite wound or ulceration however, this should be correlated with physical exam. Intact tibia and fibula. No edema, and no evidence of osteomyelitis, or periosteal edema. Mild edema within the medial head of the gastrocnemius, which may be secondary to chronic eccentric overload. Given the overlying subcutaneous edema, myositis cannot entirely be excluded. No fracture of the tibia or fibula. IMPRESSION: Circumferential subcutaneous edema about the calf, with mild skin thickening. Correlate for cellulitis. No fluid collection or abscess. No MRI evidence of osteomyelitis. Mild edema within the medial head of the gastrocnemius, which may be secondary to chronic eccentric overload. Given the overlying subcutaneous edema, myositis cannot entirely be excluded. Electronically signed by: Go Bedoya MD 03/09/23 19:48 PM
[2023-03-10] MEDS: oxyCODONE HCL IR 5 MG TAB (IMMEDIATE RELEASE) PO PRN ×3 (05:01→20:32)
[2023-03-10] MEDS: ACETAMINOPHEN 325 MG TAB PO PRN ×2 (05:01→20:32)
[2023-03-10] MEDS: CEFEPIME 2,000 MG in SYRINGE 0 ML IV SCH ×3 (05:02→20:32)
[2023-03-10] MEDS: PANTOprazole 40 MG TAB PO SCH (05:02)
[2023-03-10 09:13] LABS: Hematocrit (blood only) 29.3 % (42.0-52.0); Hemoglobin 9.9 g/dl (14.0-18.0); Mean Corpuscular Hemoglobin 30.4 pg (25.0-34.0); Mean Corpuscular Hgb Conc 33.8 g/dL (32.0-36.0); Mean Corpuscular Volume 89.9 fL (80.0-100.0); Mean Platelet Volume 10.8 fL (9.4-12.4); Platelet Count 199 K/uL (130-400); RDW Coefficient of Variation 13.7 % (11.5-14.5); RDW Standard Deviation 45.1 fL (36.4-46.3); Red Blood Count 3.26 M/uL (4.70-6.10); White Blood Count 11.92 K/ul (4.8-10.8)
[2023-03-10] MEDS ORDERED: bisacodyL 10 MG SUPP PR STA (09:24)
[2023-03-10] MEDS: CHOLECALCIFEROL 1,000 UNITS 25 MCG TAB PO SCH (09:27)
[2023-03-10] MEDS: ADVANCED PROBIOTIC 1250 MG CAPSULE PO SCH (09:27)
[2023-03-10] MEDS: ENOXAPARIN INJ 40 MG/0.4 ML SYR SQ SCH (09:27)
[2023-03-10] MEDS: POLYETHYLENE (MIRALAX) 17 GM PACK PO SCH (09:38)
[2023-03-10] MEDS: DOCUSATE SODIUM/SENNA 50/8.6MG TAB PO SCH (09:38)
--- NOTE | 2023-03-10 10:01 | Hospitalist Progress Note ---
Date of Service March 10, 2023 Assessment & Plan (1) Cellulitis: (2) Sepsis: Plan 57-year-old male with PMH of COPD, GERD, chronic hyponatremia, chronic anemia [baseline hemoglobin 13], hypothyroidism, past tobacco/alcohol use presented to the ED 03/07 with complaint of 1 day history of achy left leg swelling with fever and chills. Patient reports ongoing cough for several weeks productive of minimal clear sputum; denies any sore throat. Patient reports having similar LLE episode in 2016. No tick bites per patient. He is being managed for the following: Sepsis POA: Temperature, [place], RR elevated plus LLE cellulitis. Procalcitonin high normal, lactic acid normal at presentation. LLE cellulitis Likely predisposed secondary to ongoing lower extremity swelling with crack in skin secondary to distention from swelling. Pt w/ c/o LE swelling for long time. BNP slightly elevated at presentation. Echo was obtained to rule out underlying heart failure, came back EF 60 to 65% with normal LV and RV size and function. Outpatient chart review 03/07 with dobutamine stress echo on 02/11/2014 with EF of 55 to 59% Admitting imagings: LLE Doppler: Negative for DVT. LLE CT: Subcutaneous soft tissue edema, osteopenia noted CT head and CXR: No acute finding Patient is still having intermittent fevers Currently on cefepime and vancomycin Blood cultures negative. Repeat blood cultures Surgery eval and recs appreciated LE MRI noted cellulitis. No abscess or OM. Mild edema within medial head of gastrocnemius which could be due to chronic eccentric overload. Given overlying subcut edema, myositis cannot be excluded Acute renal failure: Likely secondary to acute illness, prerenal. Status post IV fluid in ED Now resolved. Hypomagnesemia and Hypophosphatemia yesterday. Monitor Osteopenia: Vitamin D deficiency: Noted in CT LLE Vitamin D level is 19.8, Vit D po 1000U daily Patient aware to coordinate with PCP office for considering DEXA scan as an outpatient. Left hand distal one-third fifth metacarpal fracture: Questionable acute nondisplaced fracture of the fifth metacarpal. Patient's x-ray left hand was obtained 03/07 to 03/08 overnight due to concerns of left hand cellulitis due to patient complaining left hand pain. Ortho recs noted. No surgery needed Other chronic medical conditions: COPD, baseline lung status hx GERD: Continue with home PPI chronic hyponatremia: Stable, will monitor chronic anemia, hemoglobin at baseline hypothyroidism, not on maintenance medications citing severe adverse reaction in the past past tobacco/alcohol abuse Hyperglycemia rule out DM: A1c of 6.2, prediabetes. Pt to f/u w/ PCP for nursing home follow up/management. Bowel regimen for constipation DVT prophylaxis: Lovenox Full code I spent a total of 50 minutes coordinating, documenting and providing care for this patient excluding time spent in performance of separately billed services Admission and Anticipated Discharge Date Admission Date: March 06, 2023 Subjective Patient seen and examined Reports pain in Left leg/ankle and foot Had fever at 4:30 am this morning Still reports constipation Denied nausea, vomiting, abd pain Denied dysuria, freq, urgency Denied cough, chest pain, SOB Physical Exam Constitutional: no acute distress Eyes: PERRL, conjunctivae normal, anicteric sclerae ENMT: external ear and nose normal, oropharynx normal Respiratory: normal respiratory effort, lungs clear to auscultation Cardiovascular: Rate/Rhythm: regular rate and regular rhythm S1 S2 Gastrointestinal (Abdomen): normal bowel sounds, soft, nontender, no hepatosplenomegaly Neurologic: PERRL, EOMI, accommodation nl, no face palsy, no dysarthria Psychiatric: A+Ox3, euthymic affect Results & Data Results & Data Vital Signs (Past 12 Hours) Vital Signs Temp Pulse Pulse Resp BP Pulse Ox Pulse Ox 03/10/23 08:05 37.4 C 98 H 18 102/62 92 03/10/23 07:31 101 H 03/10/23 04:30 38.4 C H 102 H 18 126/69 94 03/10/23 01:24 94 03/09/23 23:00 36.9 C 90 18 103/62 95 03/09/23 22:00 87 03/09/23 22:47 O2 Del Method O2 Del Method 03/10/23 08:05 Room Air 03/10/23 07:31 03/10/23 04:30 Room Air 03/10/23 01:24 Room Air 03/09/23 23:00 Room Air 03/09/23 22:00 03/09/23 22:47 Room Air
[2023-03-10 10:30] LABS: Potassium 4.1 mmol/L (3.5-5.1)
[2023-03-10 10:36] LABS: BUN Creatinine Ratio 12.4 (10-20); Creatinine Clr Calc Pharmacy 94.2 ml/min; Est GFR (African American) 108.5 ml/min; Est GFR (Non-African American) 93.6 ml/min; Phosphorus 2.3 mg/dl (2.5-4.9)
[2023-03-10] MEDS: VANCOMYCIN HCL 1,250 MG in SODIUM CHLORIDE 0.9% 250 ML IV SCH ×2 (11:07→21:53)
[2023-03-10] MEDS: LORazepam 0.5 MG TAB PO PRN (12:18)
[2023-03-10] MEDS ORDERED: POT PHOSPHATE MONOBASIC W/ SOD TAB PO ONE (15:26)
[2023-03-10] MEDS ORDERED: LIDOCAINE 5% 1 PATCH TD STA (17:14)
[2023-03-11] MEDS: CEFEPIME 2,000 MG in SYRINGE 0 ML IV SCH ×3 (03:39→19:44)
[2023-03-11] MEDS: PANTOprazole 40 MG TAB PO SCH (05:38)
[2023-03-11 06:57] LABS: Hematocrit (blood only) 27.6 % (42.0-52.0); Hemoglobin 9.6 g/dl (14.0-18.0); Mean Corpuscular Hemoglobin 31.2 pg (25.0-34.0); Mean Corpuscular Hgb Conc 34.8 g/dL (32.0-36.0); Mean Corpuscular Volume 89.6 fL (80.0-100.0); Mean Platelet Volume 10.6 fL (9.4-12.4); Platelet Count 215 K/uL (130-400); RDW Coefficient of Variation 13.4 % (11.5-14.5); RDW Standard Deviation 43.8 fL (36.4-46.3); Red Blood Count 3.08 M/uL (4.70-6.10); White Blood Count 11.63 K/ul (4.8-10.8)
[2023-03-11 07:21] LABS: Albumin Globulin Ratio 1.1 (0.9-2); Albumin Level 3.2 gm/dl (3.4-5.0); BUN Creatinine Ratio 12.9 (10-20); Bilirubin,Total 0.6 mg/dl (0.2-1.0); Creatinine Clr Calc Pharmacy 119.1 ml/min; Est GFR (African American) 119.7 ml/min; Est GFR (Non-African American) 103.3 ml/min; Phosphorus 1.2 mg/dl (2.5-4.9); Potassium 3.5 mmol/L (3.5-5.1); Total Protein 6.2 gm/dl (6.0-8.3)
[2023-03-11] MEDS: ACETAMINOPHEN 325 MG TAB PO PRN ×2 (07:48→20:11)
[2023-03-11] MEDS: ADVANCED PROBIOTIC 1250 MG CAPSULE PO SCH (07:48)
[2023-03-11] MEDS: CHOLECALCIFEROL 1,000 UNITS 25 MCG TAB PO SCH (07:48)
[2023-03-11] MEDS: ENOXAPARIN INJ 40 MG/0.4 ML SYR SQ SCH (07:49)
[2023-03-11] MEDS: POLYETHYLENE (MIRALAX) 17 GM PACK PO SCH (07:50)
[2023-03-11] MEDS: DOCUSATE SODIUM/SENNA 50/8.6MG TAB PO SCH (07:54)
[2023-03-11] MEDS ORDERED: POTASSIUM PHOS 3 MMOL/1 ML INFUSION IV STA (08:09)
[2023-03-11] MEDS ORDERED: POTASSIUM PHOSPHATE 30 MMOL in SODIUM CHLORIDE 0.9% 500 ML IV ONE (08:30)
[2023-03-11] MEDS ORDERED: VANCOMYCIN LEVEL ONE (09:59)
[2023-03-11] MEDS: metroNIDAZOLE 500 MG/100 ML BAG IV SCH ×2 (11:54→18:35)
[2023-03-11] MEDS: VANCOMYCIN HCL 1,250 MG in SODIUM CHLORIDE 0.9% 250 ML IV SCH ×2 (11:54→18:35)
--- NOTE | 2023-03-11 12:09 | Pharmacy Report ---
Pharmacy Vanc AUC Short Note - Date of Service March 11, 2023 - Assessment & Plan Assessment 57 year old M receiving vancomycin/cefepime/Flagyl for treatment of cellulitis. Pertinent microbiologic data includes: blood cultures currently NGTD. Patient continues to have temperatures (Tmax yesterday 39.5). WBC remains elevated at 11.6 Day # 3 of antimicrobial therapy. Plan Vancomycin * AUC/YENY is the preferred PK/PD target for vancomycin * AUC guided dosing is effective and associated with decreased risk of nephrotoxicity compared to traditional trough targets * Trough level of 8.2 mcg/mL is predicted to achieve LESS THAN target AUC/YENY of 400-600 mg/L.hr * INCREASE dose to vancomycin 1250 mg IV q8. This may be associated with a 12 % risk of nephrotoxicity * Random level ordered for: 03/13/23 Pharmacy will continue to follow and will adjust dose/frequency as necessary. Thank you.
--- NOTE | 2023-03-11 12:22 | Hospitalist Progress Note ---
Date of Service March 11, 2023 Assessment & Plan (1) Cellulitis: (2) Sepsis: Plan 57-year-old male with PMH of COPD, GERD, chronic hyponatremia, chronic anemia [baseline hemoglobin 13], hypothyroidism, past tobacco/alcohol use presented to the ED 03/07 with complaint of 1 day history of achy left leg swelling with fever and chills. Patient reports ongoing cough for several weeks productive of minimal clear sputum; denies any sore throat. Patient reports having similar LLE episode in 2016. No tick bites per patient. He is being managed for the following: Sepsis POA: Temperature, [place], RR elevated plus LLE cellulitis. Procalcitonin 0.44-->1.45-->0.82, lactic acid normal at presentation. LLE cellulitis Likely predisposed secondary to ongoing lower extremity swelling Pt w/ c/o LE swelling for long time (years) Outpatient review of PCP office visit from 02/10/21 noted patient had had left leg edema for 6 months at the time BNP slightly elevated at presentation. Echo was obtained to rule out underlying heart failure, came back EF 60 to 65% with normal LV and RV size and function. Outpatient chart review 03/07 with dobutamine stress echo on 02/11/2014 with EF of 55 to 59% Admitting imagings: LLE Doppler: Negative for DVT. LLE CT: Subcutaneous soft tissue edema, osteopenia noted CT head and CXR: No acute finding Patient is still having intermittent fevers. Last was this morning Currently on cefepime and vancomycin. Flagyl added for broader coverage Blood cultures on admission are negative. Repeat blood cultures negative so far Surgery eval and recs appreciated LE MRI noted cellulitis. No abscess or OM. Mild edema within medial head of gastrocnemius which could be due to chronic eccentric overload. Given overlying subcut edema, myositis cannot be excluded Will appreciate ID eval Acute renal failure: Likely secondary to acute illness, prerenal. Status post IV fluid in ED Now resolved. Hypophosphatemia yesterday. Replete and monitor Osteopenia: Vitamin D deficiency: Noted in CT LLE Vitamin D level is 19.8, Vit D po 1000U daily Patient aware to coordinate with PCP office for considering DEXA scan as an outpatient. Left hand distal one-third fifth metacarpal fracture: Questionable acute nondisplaced fracture of the fifth metacarpal. Patient's x-ray left hand was obtained 6/ to 03/08 overnight due to concerns of left hand cellulitis due to patient complaining left hand pain. Ortho recs noted. No surgery needed Other chronic medical conditions: COPD, baseline lung status hx GERD: Continue with home PPI chronic hyponatremia: Stable, will monitor chronic anemia, hemoglobin at baseline hypothyroidism, not on maintenance medications citing severe adverse reaction in the past past tobacco/alcohol abuse Hyperglycemia rule out DM: A1c of 6.2, prediabetes. Pt to f/u w/ PCP for terminal supervisor follow up/management. Bowel regimen for constipation DVT prophylaxis: Lovenox Full code I spent a total of 50 minutes coordinating, documenting and providing care for this patient excluding time spent in performance of separately billed services Admission and Anticipated Discharge Date Admission Date: March 06, 2023 Subjective Patient seen and examined Continues to have intermittent fevers Continues to have left leg pain, erythema, swelling He reported chronic left leg swelling Denied nausea, vomiting, abd pain Denied dysuria, freq, urgency Denied cough, chest pain, SOB Physical Exam Constitutional: no acute distress Eyes: PERRL, conjunctivae normal, anicteric sclerae ENMT: external ear and nose normal, oropharynx normal Respiratory: normal respiratory effort, lungs clear to auscultation Cardiovascular: Rate/Rhythm: regular rate and regular rhythm S1 S2 Gastrointestinal (Abdomen): normal bowel sounds, soft, nontender, no hepatosplenomegaly Musculoskeletal: Left Leg erythema, swelling from knee down to feet. No open wounds visible. +Tenderness Neurologic: PERRL, EOMI, accommodation nl, no face palsy, no dysarthria Psychiatric: A+Ox3, euthymic affect Results & Data Results & Data Vital Signs (Past 12 Hours) Vital Signs Temp Pulse Resp BP BP Pulse Ox O2 Del Method 03/11/23 12:06 37.5 C 83 19 105/61 97 Room Air 03/11/23 07:29 39.4 C H 103 H 24 119/63 94 Room Air 03/11/23 03:36 37.7 C H 98 H 20 106/65 94 Room Air 03/11/23 03:19 Room Air Laboratory Results Abnormal lab results 03/11/23 03/11/23 03/11/23 Range/Units 06:23 06:23 06:23 WBC 11.63 H (4.8-10.8) K/ul RBC 3.08 L (4.70-6.10) M/uL Hgb 9.6 L (14.0-18.0) g/dl Hct 27.6 L (42.0-52.0) % Sodium 132 L (136-145) mmol/L Glucose 144 H (70-99(Fasting)) mg/dl Calcium 8.0 L (8.6-10.3) mg/dl Phosphorus 1.2 L* D (2.5-4.9) mg/dl Albumin 3.2 L (3.4-5.0) gm/dl Procalcitonin 0.82 H (0-0.5) ng/ml Random Vancomycin (10-20) mcg/ml 03/11/23 Range/Units 09:44 WBC (4.8-10.8) K/ul RBC (4.70-6.10) M/uL Hgb (14.0-18.0) g/dl Hct (42.0-52.0) % Sodium (136-145) mmol/L Glucose (70-99(Fasting)) mg/dl Calcium (8.6-10.3) mg/dl Phosphorus (2.5-4.9) mg/dl Albumin (3.4-5.0) gm/dl Procalcitonin (0-0.5) ng/ml Random Vancomycin 8.2 L (10-20) mcg/ml
[2023-03-11] MEDS: oxyCODONE HCL IR 5 MG TAB (IMMEDIATE RELEASE) PO PRN ×2 (12:36→19:44)
[2023-03-11] MEDS: LIDOCAINE 5% 1 PATCH TD SCH (17:31)
[2023-03-11] MEDS: PROMETHAZINE HCL 12.5 MG in SODIUM CHLORIDE 0.9% 50 ML IV PRN (20:29)
[2023-03-12] MEDS: VANCOMYCIN HCL 1,250 MG in SODIUM CHLORIDE 0.9% 250 ML IV SCH ×3 (02:14→18:43)
[2023-03-12] MEDS: metroNIDAZOLE 500 MG/100 ML BAG IV SCH ×3 (02:14→18:44)
[2023-03-12] MEDS: CEFEPIME 2,000 MG in SYRINGE 0 ML IV SCH ×3 (04:00→20:02)
[2023-03-12] MEDS: PANTOprazole 40 MG TAB PO SCH (06:22)
[2023-03-12 07:19] LABS: Hematocrit (blood only) 26.3 % (42.0-52.0); Mean Corpuscular Hemoglobin 30.4 pg (25.0-34.0); Mean Corpuscular Hgb Conc 34.2 g/dL (32.0-36.0); Mean Corpuscular Volume 88.9 fL (80.0-100.0); Mean Platelet Volume 10.6 fL (9.4-12.4); Platelet Count 243 K/uL (130-400); RDW Coefficient of Variation 13.6 % (11.5-14.5); RDW Standard Deviation 44.7 fL (36.4-46.3); Red Blood Count 2.96 M/uL (4.70-6.10); White Blood Count 9.53 K/ul (4.8-10.8)
[2023-03-12 07:30] LABS: BUN Creatinine Ratio 11.8 (10-20); Calcium 7.9 mg/dl (8.6-10.3); Creatinine Clr Calc Pharmacy 123.8 ml/min; Est GFR (African American) 121.2 ml/min; Est GFR (Non-African American) 104.5 ml/min; Potassium 3.4 mmol/L (3.5-5.1)
[2023-03-12 07:33] LABS: Magnesium 1.9 mg/dl (1.7-2.4); Phosphorus 1.5 mg/dl (2.5-4.9)
[2023-03-12] MEDS ORDERED: POTASSIUM PHOS 3 MMOL/1 ML INFUSION IV STA (07:37)
[2023-03-12] MEDS: oxyCODONE HCL IR 5 MG TAB (IMMEDIATE RELEASE) PO PRN ×2 (07:42→17:16)
[2023-03-12] MEDS: ACETAMINOPHEN 325 MG TAB PO PRN ×2 (07:42→18:50)
[2023-03-12] MEDS ORDERED: POTASSIUM PHOSPHATE 40 MMOL in SODIUM CHLORIDE 0.9% 1000ML 1,000 ML IV ONE (08:00)
[2023-03-12] MEDS: CHOLECALCIFEROL 1,000 UNITS 25 MCG TAB PO SCH (09:24)
[2023-03-12] MEDS: ENOXAPARIN INJ 40 MG/0.4 ML SYR SQ SCH (09:24)
[2023-03-12] MEDS: ADVANCED PROBIOTIC 1250 MG CAPSULE PO SCH (09:24)
[2023-03-12] MEDS: POLYETHYLENE (MIRALAX) 17 GM PACK PO SCH (09:25)
[2023-03-12] MEDS: LIDOCAINE 5% 1 PATCH TD SCH (09:25)
[2023-03-12] MEDS: POT PHOSPHATE MONOBASIC W/ SOD TAB PO SCH ×4 (09:25→20:16)
--- NOTE | 2023-03-12 10:01 | Pharmacy Report ---
Pharmacy PK ABX Note - Date of Service March 12, 2023 - Assessment and Plan Assessment 57 year old M receiving vancomycin/cefepime/metronidazole for treatment of cellulitis. Pertinent microbiologic data includes: Blood cultures x4- NGTD Awaiting ID evaluation. dose increased yesterday, random level obtained today following 2nd dose at new interval. Plan Vancomycin * Maintenance dose: 1250 mg IV every 8 hours; Random level 19.7 today * Regimen is predicted to achieve target AUC/YENY of 400-600 mg/L.hr * Continue current dose * Random level ordered for 03/12 @09 Pharmacy will continue to follow and will adjust dose/frequency as necessary. Thank you. Pharmacy has transitioned to AUC monitoring for vancomycin. AUC/YENY is the preferred PK/PD target and is associated with decreased risk of nephrotoxicity compared to traditional trough targets.
--- NOTE | 2023-03-12 10:38 | Hospitalist Progress Note ---
Date of Service March 12, 2023 Assessment & Plan (1) Cellulitis: (2) Sepsis: Plan 57-year-old male with PMH of COPD, GERD, chronic hyponatremia, chronic anemia [baseline hemoglobin 13], hypothyroidism, past tobacco/alcohol use presented to the ED 03/07 with complaint of 1 day history of achy left leg swelling with fever and chills. Patient reports ongoing cough for several weeks productive of minimal clear sputum; denies any sore throat. Patient reports having similar LLE episode in 2016. No tick bites per patient. He is being managed for the following: Sepsis POA: Temperature, [place], RR elevated plus LLE cellulitis. Procalcitonin 0.44-->1.45-->0.82, lactic acid normal at presentation. LLE cellulitis Likely predisposed secondary to ongoing lower extremity swelling Pt w/ c/o LE swelling for long time (years) Outpatient review of PCP office visit from 02/10/21 noted patient had had left leg edema for 6 months at the time BNP slightly elevated at presentation. Echo was obtained to rule out underlying heart failure, came back EF 60 to 65% with normal LV and RV size and function. Outpatient chart review 03/07 with dobutamine stress echo on 02/11/2014 with EF of 55 to 59% Admitting imagings: LLE Doppler: Negative for DVT. LLE CT: Subcutaneous soft tissue edema, osteopenia noted CT head and CXR: No acute finding Patient is still having intermittent fevers. Currently on cefepime, vancomycin and flagyl Blood cultures on admission are negative. Repeat blood cultures negative so far Surgery eval and recs appreciated LE MRI noted cellulitis. No abscess or OM. Mild edema within medial head of gastrocnemius which could be due to chronic eccentric overload. Given overlying subcut edema, myositis cannot be excluded Awaiting ID eval Acute renal failure: Likely secondary to acute illness, prerenal. Status post IV fluid in ED Now resolved. Hypophosphatemia. Phos is 1.5 today. IV Kphos ordered Replete and monitor Osteopenia: Vitamin D deficiency: Noted in CT LLE Vitamin D level is 19.8, Vit D po 1000U daily Patient aware to coordinate with PCP office for considering DEXA scan as an outpatient. Left hand distal one-third fifth metacarpal fracture: Questionable acute nondisplaced fracture of the fifth metacarpal. Patient's x-ray left hand was obtained / to 03/08 overnight due to concerns of left hand cellulitis due to patient complaining left hand pain. Ortho recs noted. No surgery needed Other chronic medical conditions: COPD, baseline lung status hx GERD: Continue with home PPI chronic hyponatremia: Stable, will monitor chronic anemia, hemoglobin at baseline hypothyroidism, not on maintenance medications citing severe adverse reaction in the past past tobacco/alcohol abuse Hyperglycemia rule out DM: A1c of 6.2, prediabetes. Pt to f/u w/ PCP for long-term follow up/management. Bowel regimen for constipation DVT prophylaxis: Lovenox Full code I spent a total of 45 minutes coordinating, documenting and providing care for this patient excluding time spent in performance of separately billed services Admission and Anticipated Discharge Date Admission Date: March 06, 2023 Subjective Patient seen and examined He continues to have intermittent fevers Still has left leg pain, erythema, swelling Denied nausea, vomiting, abd pain, diarrhea, constipation Denied dysuria, freq, urgency Denied cough, chest pain, SOB Physical Exam Constitutional: no acute distress Eyes: PERRL, conjunctivae normal, anicteric sclerae ENMT: external ear and nose normal, oropharynx normal Respiratory: normal respiratory effort, lungs clear to auscultation Cardiovascular: Rate/Rhythm: regular rate and regular rhythm S1 S2 Gastrointestinal (Abdomen): normal bowel sounds, soft, nontender, no hepatosplenomegaly Musculoskeletal: Left Leg erythema,tender and swelling from knee down to feet. No open wounds vis ible. Neurologic: PERRL, EOMI, accommodation nl, no face palsy, no dysarthria Psychiatric: A+Ox3, euthymic affect Results & Data Results & Data Vital Signs (Past 12 Hours) Vital Signs Temp Pulse Pulse Resp BP Pulse Ox O2 Del Method 03/12/23 09:14 36.9 C 03/12/23 07:32 38.1 C H 101 H 18 113/56 L 96 Room Air 03/12/23 07:24 104 H 03/12/23 03:38 37.4 C 88 20 121/66 95 Room Air Laboratory Results Abnormal lab results 03/12/23 03/12/23 Range/Units 06:49 06:49 RBC 2.96 L (4.70-6.10) M/uL Hgb 9.0 L (14.0-18.0) g/dl Hct 26.3 L (42.0-52.0) % Sodium 132 L (136-145) mmol/L Potassium 3.4 L (3.5-5.1) mmol/L Glucose 196 H (70-99(Fasting)) mg/dl Calcium 7.9 L (8.6-10.3) mg/dl Phosphorus 1.5 L* (2.5-4.9) mg/dl
[2023-03-12] MEDS ORDERED: FUROSEMIDE INJ 20 MG/2 ML VIAL IV ONE (20:00)
[2023-03-13] MEDS: PROMETHAZINE HCL 12.5 MG in SODIUM CHLORIDE 0.9% 50 ML IV PRN ×3 (01:45→22:41)
[2023-03-13] MEDS ORDERED: HYDROmorphone INJ 0.5 MG/0.5 ML SYR IV STA (01:56)
[2023-03-13] MEDS: VANCOMYCIN HCL 1,250 MG in SODIUM CHLORIDE 0.9% 250 ML IV SCH ×3 (01:59→17:23)
[2023-03-13] MEDS: metroNIDAZOLE 500 MG/100 ML BAG IV SCH ×3 (02:14→17:15)
[2023-03-13] MEDS: CEFEPIME 2,000 MG in SYRINGE 0 ML IV SCH ×3 (03:29→19:46)
[2023-03-13] MEDS: PANTOprazole 40 MG TAB PO SCH (05:21)
[2023-03-13 05:52] LABS: Hematocrit (blood only) 28.1 % (42.0-52.0); Hemoglobin 9.5 g/dl (14.0-18.0); Mean Corpuscular Hemoglobin 30.4 pg (25.0-34.0); Mean Corpuscular Hgb Conc 33.8 g/dL (32.0-36.0); Mean Corpuscular Volume 89.8 fL (80.0-100.0); Mean Platelet Volume 10.7 fL (9.4-12.4); Platelet Count 295 K/uL (130-400); RDW Coefficient of Variation 13.7 % (11.5-14.5); Red Blood Count 3.13 M/uL (4.70-6.10)
[2023-03-13 06:14] LABS: BUN Creatinine Ratio 10.1 (10-20); Est GFR (African American) 120.4 ml/min; Est GFR (Non-African American) 103.9 ml/min; Magnesium 1.9 mg/dl (1.7-2.4); Phosphorus 2.7 mg/dl (2.5-4.9); Potassium 4.3 mmol/L (3.5-5.1)
[2023-03-13] MEDS: oxyCODONE HCL IR 5 MG TAB (IMMEDIATE RELEASE) PO PRN ×3 (08:12→22:31)
[2023-03-13] MEDS: ACETAMINOPHEN 325 MG TAB PO PRN ×3 (08:12→22:31)
[2023-03-13] MEDS ORDERED: VANCOMYCIN LEVEL ONE (09:00)
[2023-03-13] MEDS: ADVANCED PROBIOTIC 1250 MG CAPSULE PO SCH (09:42)
[2023-03-13] MEDS: ENOXAPARIN INJ 40 MG/0.4 ML SYR SQ SCH (09:42)
[2023-03-13] MEDS: CHOLECALCIFEROL 1,000 UNITS 25 MCG TAB PO SCH (09:42)
[2023-03-13] MEDS: POT PHOSPHATE MONOBASIC W/ SOD TAB PO SCH ×4 (09:42→20:25)
[2023-03-13] MEDS: POLYETHYLENE (MIRALAX) 17 GM PACK PO SCH (09:44)
[2023-03-13] MEDS: LIDOCAINE 5% 1 PATCH TD SCH (09:44)
[2023-03-13] MEDS ORDERED: FUROSEMIDE INJ 20 MG/2 ML VIAL IV ONE (10:06)
--- NOTE | 2023-03-13 10:20 | Hospitalist Progress Note ---
Date of Service March 13, 2023 Assessment & Plan (1) Cellulitis: (2) Sepsis: Plan 57-year-old male with PMH of COPD, GERD, chronic hyponatremia, chronic anemia [baseline hemoglobin 13], hypothyroidism, past tobacco/alcohol use presented to the ED 03/07 with complaint of 1 day history of achy left leg swelling with fever and chills. Patient reports ongoing cough for several weeks productive of minimal clear sputum; denies any sore throat. Patient reports having similar LLE episode in 2016. No tick bites per patient. He is being managed for the following: Sepsis POA: Temperature, [place], RR elevated plus LLE cellulitis. Procalcitonin 0.44-->1.45-->0.82, lactic acid normal at presentation. LLE cellulitis Likely predisposed secondary to ongoing lower extremity swelling Pt w/ c/o LE swelling for long time (years) Outpatient review of PCP office visit from 02/10/21 noted patient had had left leg edema for 6 months at the time BNP was 127 on presentation. Echo was obtained to rule out underlying heart failure, came back EF 60 to 65% with normal LV and RV size and function. Outpatient chart review 03/07 with dobutamine stress echo on 02/11/2014 with EF of 55 to 59% Admitting imagings: LLE Doppler: Negative for DVT. LLE CT: Subcutaneous soft tissue edema, osteopenia noted CT head and CXR: No acute finding Patient having intermittent fevers. Currently on cefepime, vancomycin and flagyl Blood cultures on admission are negative. Repeat blood cultures negative so far Surgery eval and recs appreciated LE MRI noted cellulitis. No abscess or OM. Mild edema within medial head of gastrocnemius which could be due to chronic eccentric overload. Given overlying subcut edema, myositis cannot be excluded Awaiting ID eval Acute renal failure: Hypophosphatemia Likely secondary to acute illness, prerenal. Status post IV fluid in ED Now resolved. Phos is 2.7 today. Monitor Osteopenia: Vitamin D deficiency: Noted in CT LLE Vitamin D level is 19.8, Vit D po 1000U daily Patient aware to coordinate with PCP office for considering DEXA scan as an outpatient. Left hand distal one-third fifth metacarpal fracture: Questionable acute nondisplaced fracture of the fifth metacarpal. Patient's x-ray left hand was obtained 03/07 to 03/08 overnight due to concerns of left hand cellulitis due to patient complaining left hand pain. Ortho recs noted. No surgery needed Other chronic medical conditions: COPD, baseline lung status hx GERD: Continue with home PPI chronic hyponatremia: Stable, will monitor chronic anemia, hemoglobin at baseline hypothyroidism, not on maintenance medications citing severe adverse reaction in the past past tobacco/alcohol abuse Hyperglycemia rule out DM: A1c of 6.2, prediabetes. 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 Bowel regimen for constipation DVT prophylaxis: Lovenox Full code I spent a total of 40 minutes coordinating, documenting and providing care for this patient excluding time spent in performance of separately billed services Admission and Anticipated Discharge Date Admission Date: March 06, 2023 Subjective Patient seen and examined Reports mild improvement in leg swelling Still has pain Reported dry heaves overnight Low grade temp this morning Reported constipation has resolved since yesterday and stool may be getting loose with bowel regimen Denied nausea, vomiting, abd pain Denied dysuria, freq, urgency Reports occasional cough today which he stated was his 'normal' cough. Denied chest pain or shortness of breath Physical Exam Constitutional: no acute distress Eyes: PERRL, conjunctivae normal, anicteric sclerae ENMT: external ear and nose normal, oropharynx normal Respiratory: normal respiratory effort, lungs clear to auscultation Cardiovascular: Rate/Rhythm: regular rate and regular rhythm S1 S2 Gastrointestinal (Abdomen): normal bowel sounds, soft, nontender, no hepatosplenomegaly Neurologic: PERRL, EOMI, accommodation nl, no face palsy, no dysarthria Psychiatric: A+Ox3, euthymic affect Results & Data Results & Data Vital Signs (Past 12 Hours) Vital Signs Temp Pulse Pulse Resp BP Pulse Ox O2 Del Method 03/13/23 07:32 37.9 C H 90 20 118/69 92 Room Air 03/13/23 07:24 94 H 03/13/23 02:59 86 03/13/23 02:38 Room Air 03/13/23 02:30 37.1 C 95 H 22 129/74 94 Room Air Laboratory Results Abnormal lab results 03/13/23 03/13/23 03/13/23 Range/Units 05:26 05:26 05:26 RBC 3.13 L (4.70-6.10) M/uL Hgb 9.5 L (14.0-18.0) g/dl Hct 28.1 L (42.0-52.0) % Sodium 135 L (136-145) mmol/L Glucose 143 H (70-99(Fasting)) mg/dl Calcium 8.0 L (8.6-10.3) mg/dl Random Vancomycin 22.8 H (10-20) mcg/ml
--- NOTE | 2023-03-13 11:34 | Pharmacy Report ---
Pharmacy PK ABX Note - Date of Service March 13, 2023 - Assessment and Plan Assessment 03/13 * Additional level obtained today after 5 doses, level is therapeutic and predicts target AUC/YENY achievement * Patient continued to have fevers, 38.1 yesterday AM, leukocytosis improved, ID consult pending 03/12 57 year old M receiving vancomycin/cefepime/metronidazole for treatment of cellulitis. Pertinent microbiologic data includes: Blood cultures x4- NGTD Awaiting ID evaluation. dose increased yesterday, random level obtained today following 2nd dose at new interval. Plan Vancomycin * Maintenance dose: 1250 mg IV every 8 hours; Random level 22.8 mcg/ml today * Regimen is predicted to achieve target AUC/YENY of 400-600 mg/L.hr * Continue current dose * Random level to be ordered in 2-3 days or as needed with renal function changes Pharmacy will continue to follow and will adjust dose/frequency as necessary. Thank you. Pharmacy has transitioned to AUC monitoring for vancomycin. AUC/YENY is the preferred PK/PD target and is associated with decreased risk of nephrotoxicity compared to traditional trough targets.
[2023-03-13] MEDS ORDERED: POLYETHYLENE (MIRALAX) 17 GM PACK PO PRN (14:29)
[2023-03-14] MEDS: metroNIDAZOLE 500 MG/100 ML BAG IV SCH ×3 (02:31→17:47)
[2023-03-14] MEDS: VANCOMYCIN HCL 1,250 MG in SODIUM CHLORIDE 0.9% 250 ML IV SCH ×2 (02:31→09:32)
[2023-03-14] MEDS: CEFEPIME 2,000 MG in SYRINGE 0 ML IV SCH ×3 (04:00→21:02)
[2023-03-14] MEDS: PANTOprazole 40 MG TAB PO SCH (05:39)
[2023-03-14 07:58] LABS: Hematocrit (blood only) 28.3 % (42.0-52.0); Hemoglobin 9.6 g/dl (14.0-18.0); Mean Corpuscular Hemoglobin 30.5 pg (25.0-34.0); Mean Corpuscular Hgb Conc 33.9 g/dL (32.0-36.0); Mean Corpuscular Volume 89.8 fL (80.0-100.0); Mean Platelet Volume 10.4 fL (9.4-12.4); Platelet Count 351 K/uL (130-400); RDW Coefficient of Variation 13.6 % (11.5-14.5); RDW Standard Deviation 44.9 fL (36.4-46.3); Red Blood Count 3.15 M/uL (4.70-6.10); White Blood Count 9.67 K/ul (4.8-10.8)
[2023-03-14 08:23] LABS: BUN Creatinine Ratio 12.7 (10-20); Calcium 7.9 mg/dl (8.6-10.3); Creatinine Clr Calc Pharmacy 130.3 ml/min; Est GFR (Non-African American) 107.9 ml/min; Magnesium 1.8 mg/dl (1.7-2.4); Phosphorus 2.1 mg/dl (2.5-4.9); Potassium 3.3 mmol/L (3.5-5.1)
[2023-03-14] MEDS ORDERED: POTASSIUM CHLORIDE CRTAB 20 MEQ TABCR PO STA (08:30)
[2023-03-14] MEDS: oxyCODONE HCL IR 5 MG TAB (IMMEDIATE RELEASE) PO PRN ×2 (08:50→17:49)
[2023-03-14] MEDS: ENOXAPARIN INJ 40 MG/0.4 ML SYR SQ SCH (08:51)
[2023-03-14] MEDS: POT PHOSPHATE MONOBASIC W/ SOD TAB PO SCH ×4 (08:51→21:02)
[2023-03-14] MEDS: CHOLECALCIFEROL 1,000 UNITS 25 MCG TAB PO SCH (08:51)
[2023-03-14] MEDS: ADVANCED PROBIOTIC 1250 MG CAPSULE PO SCH (08:52)
[2023-03-14] MEDS: LIDOCAINE 5% 1 PATCH TD SCH (09:05)
[2023-03-14] MEDS: PROMETHAZINE HCL 12.5 MG in SODIUM CHLORIDE 0.9% 50 ML IV PRN (09:32)
--- NOTE | 2023-03-14 09:46 | XRay Report ---
XR chest 1V portable CLINICAL HISTORY: Resp symptoms. Reassess TECHNIQUE: Single frontal radiograph of the chest was obtained. Comparison: Comparison is made to chest radiograph 03/06/2023 FINDINGS: No lines and tubes are seen. The cardiomediastinal silhouette is normal. Prominence and cephalization of the vasculature is seen. No evidence of pleural effusion or pneumothorax. IMPRESSION: Mild pulmonary edema. ACT 112: Negative or not required by law. Electronically signed by: Grant Le M.D. 03/14/2023 9:44 AM
--- NOTE | 2023-03-14 11:16 | Hospitalist Progress Note ---
Date of Service March 14, 2023 Assessment & Plan (1) Cellulitis: (2) Sepsis: Plan 57-year-old male with PMH of COPD, GERD, chronic hyponatremia, chronic anemia [baseline hemoglobin 13], hypothyroidism, past tobacco/alcohol use presented to the ED 03/07 with complaint of 1 day history of achy left leg swelling with fever and chills. Patient reports ongoing cough for several weeks productive of minimal clear sputum; denies any sore throat. Patient reports having similar LLE episode in 2016. No tick bites per patient. He is being managed for the following: Sepsis POA: Fever, [place], RR elevated plus LLE cellulitis. Procalcitonin 0.44-->1.45-->0.82, lactic acid normal at presentation. LLE cellulitis Likely predisposed secondary to ongoing lower extremity swelling Pt w/ c/o LE swelling for long time (years) Outpatient review of PCP office visit from 02/10/21 noted patient had had left leg edema for 6 months at the time BNP was 127 on presentation. Echo was obtained to rule out underlying heart failure, came back EF 60 to 65% with normal LV and RV size and function. Outpatient chart review 03/07 with dobutamine stress echo on 02/11/2014 with EF of 55 to 59% Admitting imagings: LLE Doppler: Negative for DVT. LLE CT: Subcutaneous soft tissue edema, osteopenia noted CT head and CXR: No acute finding Patient having intermittent fevers. Currently on cefepime, vancomycin and flagyl Blood cultures on admission are negative. Repeat blood cultures negative so far Surgery eval and recs appreciated LE MRI noted cellulitis. No abscess or OM. Mild edema within medial head of gastrocnemius which could be due to chronic eccentric overload. Given overlying subcut edema, myositis cannot be excluded I discussed with ID Dr Quesada today. We reviewed patient. ID recommends changing vanco to linezolid and getting repeat imaging Vancomycin stopped and Linezolid started USS of LLE did not show any abscess Acute renal failure: Hypophosphatemia Likely secondary to acute illness, prerenal. Status post IV fluid in ED Now resolved. K is 3.3 Phos is 2.1 today. Replete and monitor Osteopenia: Vitamin D deficiency: Noted in CT LLE Vitamin D level is 19.8, Vit D po 1000U daily Patient aware to coordinate with PCP office for considering DEXA scan as an outpatient. Left hand distal one-third fifth metacarpal fracture: Questionable acute nondisplaced fracture of the fifth metacarpal. Patient's x-ray left hand was obtained 6 to 03/08 overnight due to concerns of left hand cellulitis due to patient complaining left hand pain. Ortho recs noted. No surgery needed Other chronic medical conditions: COPD, baseline lung status hx GERD: Continue with home PPI chronic hyponatremia: Stable, will monitor chronic anemia, hemoglobin stable hypothyroidism, not on maintenance medications citing severe adverse reaction in the past past tobacco/alcohol abuse Prediabetes: A1c of 6.2, prediabetes. 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 Miralax stopped CXR today showed mild edema. Give lasix and monitor electrolytes DVT prophylaxis: Lovenox Full code I spent a total of 50 minutes coordinating, documenting and providing care for this patient excluding time spent in performance of separately billed services Admission and Anticipated Discharge Date Admission Date: March 06, 2023 Subjective Patient seen and examined Report persistent Left leg pain, erythema and swelling Reported nausea/dry heaves Denied vomiting, abd pain Reported diarrhea. He had been having constipation for some days, received laxatives and has been having loose stool since Continues to have intermittent fever Reports some nasal congestion. Reported occasional cough which he stated is normal for him. Denied shortness of breath Physical Exam Constitutional: no acute distress Eyes: PERRL, conjunctivae normal, anicteric sclerae ENMT: external ear and nose normal, oropharynx normal Respiratory: normal respiratory effort, lungs clear to auscultation Cardiovascular: Rate/Rhythm: regular rate and regular rhythm S1 S2 Gastrointestinal (Abdomen): normal bowel sounds, soft, nontender, no hepatosplenomegaly Musculoskeletal: Left leg edema, erythema and tenderness Neurologic: PERRL, EOMI, accommodation nl, no face palsy, no dysarthria Psychiatric: A+Ox3, euthymic affect Results & Data Results & Data Vital Signs (Past 12 Hours) Vital Signs Temp Pulse Pulse Resp BP BP Pulse Ox 03/14/23 08:03 37.8 C H 93 H 18 100/62 94 03/14/23 07:26 92 H 03/14/23 02:29 36.9 C 84 18 150/76 H 95 O2 Del Method 03/14/23 08:03 Room Air 06/12/23 07:26 03/14/23 02:29 Room Air Laboratory Results Abnormal lab results 03/14/23 03/14/23 Range/Units 07 07:23 RBC 3.15 L (4.70-6.10) M/uL Hgb 9.6 L (14.0-18.0) g/dl Hct 28.3 L (42.0-52.0) % Sodium 134 L (136-145) mmol/L Potassium 3.3 L D (3.5-5.1) mmol/L Glucose 144 H (70-99(Fasting)) mg/dl Calcium 7.9 L (8.6-10.3) mg/dl Phosphorus 2.1 L (2.5-4.9) mg/dl
[2023-03-14] MEDS: LORATADINE 10 MG TAB PO SCH (11:22)
--- NOTE | 2023-03-14 14:47 | Ultrasound Report ---
US extremity non-vascular ltd HISTORY: 57 years-old Male Rule out abscess on Left lower extremity acute pain and swelling of the l eft lower extremity COMPARISON: MRI 03/09/2023 TECHNIQUE: Multiple real-time sonographic images of the left lower cavity soft tissues were obtained assessing grayscale appearance and color flow FINDINGS: There is persistent marked subcutaneous edema with increased echogenicity of the subcutaneous fat and dermal thickening. No focal fluid collections. IMPRESSION: Persistent cellulitis without fluid collection to suggest abscess. ACT 112: Negative or not required by law. The above report was generated using voice recognition software. It may contain grammatical, syntax o r spelling errors. Electronically signed by: Robert Murillo M.D. 03/14/2023 2:46 PM
[2023-03-14] MEDS ORDERED: FUROSEMIDE INJ 20 MG/2 ML VIAL IV ONE (15:17)
[2023-03-14] MEDS: LINEZOLID 600 MG/300 ML BAG IV SCH (17:47)
[2023-03-15] MEDS: metroNIDAZOLE 500 MG/100 ML BAG IV SCH ×3 (02:30→17:35)
[2023-03-15] MEDS: oxyCODONE HCL IR 5 MG TAB (IMMEDIATE RELEASE) PO PRN (02:34)
[2023-03-15] MEDS: CEFEPIME 2,000 MG in SYRINGE 0 ML IV SCH ×3 (04:58→19:31)
[2023-03-15] MEDS: LINEZOLID 600 MG/300 ML BAG IV SCH ×2 (05:03→17:34)
[2023-03-15] MEDS: PANTOprazole 40 MG TAB PO SCH (06:28)
[2023-03-15 06:36] LABS: Hematocrit (blood only) 27.2 % (42.0-52.0); Hemoglobin 9.3 g/dl (14.0-18.0); Mean Corpuscular Hemoglobin 30.6 pg (25.0-34.0); Mean Corpuscular Hgb Conc 34.2 g/dL (32.0-36.0); Mean Corpuscular Volume 89.5 fL (80.0-100.0); Mean Platelet Volume 10.1 fL (9.4-12.4); Platelet Count 354 K/uL (130-400); RDW Coefficient of Variation 13.7 % (11.5-14.5); Red Blood Count 3.04 M/uL (4.70-6.10); White Blood Count 8.84 K/ul (4.8-10.8)
[2023-03-15 06:57] LABS: BUN Creatinine Ratio 13.1 (10-20); Creatinine Clr Calc Pharmacy 134.5 ml/min; Est GFR (African American) 126.7 ml/min; Est GFR (Non-African American) 109.3 ml/min; Magnesium 1.8 mg/dl (1.7-2.4); Phosphorus 2.9 mg/dl (2.5-4.9); Potassium 3.4 mmol/L (3.5-5.1)
[2023-03-15] MEDS ORDERED: POTASSIUM CHLORIDE CRTAB 20 MEQ TABCR PO STA (08:46)
[2023-03-15] MEDS: ADVANCED PROBIOTIC 1250 MG CAPSULE PO SCH (09:26)
[2023-03-15] MEDS: POT PHOSPHATE MONOBASIC W/ SOD TAB PO SCH ×4 (09:26→19:56)
[2023-03-15] MEDS: LORATADINE 10 MG TAB PO SCH (09:26)
[2023-03-15] MEDS: CHOLECALCIFEROL 1,000 UNITS 25 MCG TAB PO SCH (09:26)
[2023-03-15] MEDS: LIDOCAINE 5% 1 PATCH TD SCH (09:27)
[2023-03-15] MEDS: ENOXAPARIN INJ 40 MG/0.4 ML SYR SQ SCH (09:27)
[2023-03-15] MEDS ORDERED: FUROSEMIDE INJ 20 MG/2 ML VIAL IV ONE (14:50)
--- NOTE | 2023-03-15 14:51 | Hospitalist Progress Note ---
Date of Service March 15, 2023 Assessment & Plan (1) Cellulitis: (2) Sepsis: Plan 57-year-old male with PMH of COPD, GERD, chronic hyponatremia, chronic anemia [baseline hemoglobin 13], hypothyroidism, past tobacco/alcohol use presented to the ED 03/07 with complaint of 1 day history of achy left leg swelling with fever and chills. Patient reports ongoing cough for several weeks productive of minimal clear sputum; denies any sore throat. Patient reports having similar LLE episode in 2016. No tick bites per patient. He is being managed for the following: Sepsis POA: Fever, [place], RR elevated plus LLE cellulitis. Procalcitonin 0.44-->1.45-->0.82, lactic acid normal at presentation. LLE cellulitis Likely predisposed secondary to ongoing lower extremity swelling Pt w/ c/o LE swelling for long time (years) Outpatient review of PCP office visit from 02/10/21 noted patient had had left leg edema for 6 months at the time BNP was 127 on presentation. Echo was obtained to rule out underlying heart failure, came back EF 60 to 65% with normal LV and RV size and function. Outpatient chart review 03/07 with dobutamine stress echo on 02/11/2014 with EF of 55 to 59% Admitting imagings: LLE Doppler: Negative for DVT. LLE CT: Subcutaneous soft tissue edema, osteopenia noted CT head and CXR: No acute finding Was having intermittent fevers Blood cultures on admission are negative. Repeat blood cultures negative so far Surgery eval and recs appreciated LE MRI noted cellulitis. No abscess or OM. Mild edema within medial head of gastrocnemius which could be due to chronic eccentric overload. Given overlying subcut edema, myositis cannot be excluded Was on cefepime, vancomycin and flagyl On 03/15/23,I discussed with ID Dr Quesada. We reviewed patient. ID recommendsed changing vanco to linezolid and getting repeat imaging Vancomycin stopped and Linezolid started Will continue cefepime and flagyl for now USS of LLE did not show any abscess Will give lasix 20mg IV. Keep leg elevated Acute renal failure: Hypophosphatemia Hypokalemia Likely secondary to acute illness, prerenal. Status post IV fluid in ED Now resolved. K is 3.4 Phos is 2.9 today. Replete and monitor Osteopenia: Vitamin D deficiency: Noted in CT LLE Vitamin D level is 19.8, Vit D po 1000U daily Patient aware to coordinate with PCP office for considering DEXA scan as an outpatient. Left hand distal one-third fifth metacarpal fracture: Questionable acute nondisplaced fracture of the fifth metacarpal. Patient's x-ray left hand was obtained 6/ to 6 overnight due to concerns of left hand cellulitis due to patient complaining left hand pain. Ortho recs noted. No surgery needed Other chronic medical conditions: COPD, baseline lung status hx GERD: Continue with home PPI chronic hyponatremia: Stable, will monitor chronic anemia, hemoglobin stable hypothyroidism, not on maintenance medications citing severe adverse reaction in the past past tobacco/alcohol abuse Prediabetes: A1c of 6.2, prediabetes. 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 DVT prophylaxis: Lovenox Full code I spent a total of 45 minutes coordinating, documenting and providing care for this patient excluding time spent in performance of separately billed services Admission and Anticipated Discharge Date Admission Date: March 06, 2023 Subjective Patient seen and examined Report persistent Left leg pain Stated that swelling is mildly improved Reported nausea is improved today Denied vomiting, abd pain Reported loose stool this AM Reports nasal congestion is improved. Reported occasional cough which he stated is normal for him. Denied shortness of breath Physical Exam Constitutional: no acute distress Eyes: PERRL, conjunctivae normal, anicteric sclerae ENMT: external ear and nose normal, oropharynx normal Respiratory: normal respiratory effort, lungs clear to auscultation Cardiovascular: Rate/Rhythm: regular rate and regular rhythm S1 S2 Gastrointestinal (Abdomen): normal bowel sounds, soft, nontender, no hepatosplenomegaly Musculoskeletal: Edema over foot is improved Still has LLE edema with erythema and tenderness Neurologic: PERRL, EOMI, accommodation nl, no face palsy, no dysarthria Psychiatric: A+Ox3, euthymic affect Results & Data Results & Data Vital Signs (Past 12 Hours) Vital Signs Temp Pulse Pulse Resp BP Pulse Ox O2 Del Method 03/15/23 11:47 37.4 C 91 H 16 109/66 96 Room Air 03/15/23 08:45 Room Air 03/15/23 07:42 37.7 C H 83 16 112/62 92 Room Air 03/15/23 07:13 83 03/15/23 03:09 37.3 C 93 H 16 117/62 92 Room Air Laboratory Results Abnormal lab results 03/15/23 03/15/23 Range/Units 06:10 06:10 RBC 3.04 L (4.70-6.10) M/uL Hgb 9.3 L (14.0-18.0) g/dl Hct 27.2 L (42.0-52.0) % Sodium 132 L (136-145) mmol/L Potassium 3.4 L (3.5-5.1) mmol/L Chloride 97 L (98-107) mmol/L Glucose 155 H (70-99(Fasting)) mg/dl Calcium 8.0 L (8.6-10.3) mg/dl
[2023-03-16] MEDS: metroNIDAZOLE 500 MG/100 ML BAG IV SCH ×3 (01:27→17:21)
[2023-03-16] MEDS: CEFEPIME 2,000 MG in SYRINGE 0 ML IV SCH ×3 (03:54→21:43)
[2023-03-16] MEDS: LINEZOLID 600 MG/300 ML BAG IV SCH ×2 (06:11→18:25)
[2023-03-16] MEDS: PANTOprazole 40 MG TAB PO SCH (06:11)
[2023-03-16 06:28] LABS: Hematocrit (blood only) 27.3 % (42.0-52.0); Hemoglobin 9.5 g/dl (14.0-18.0); Mean Corpuscular Hemoglobin 30.4 pg (25.0-34.0); Mean Corpuscular Hgb Conc 34.8 g/dL (32.0-36.0); Mean Corpuscular Volume 87.2 fL (80.0-100.0); Mean Platelet Volume 10.4 fL (9.4-12.4); Platelet Count 378 K/uL (130-400); RDW Coefficient of Variation 13.6 % (11.5-14.5); RDW Standard Deviation 43.5 fL (36.4-46.3); Red Blood Count 3.13 M/uL (4.70-6.10); White Blood Count 8.49 K/ul (4.8-10.8)
[2023-03-16 06:49] LABS: BUN Creatinine Ratio 16.1 (10-20); Calcium 8.1 mg/dl (8.6-10.3); Creatinine Clr Calc Pharmacy 132.6 ml/min; Est GFR (African American) 125.8 ml/min; Est GFR (Non-African American) 108.6 ml/min; Magnesium 1.9 mg/dl (1.7-2.4); Potassium 3.4 mmol/L (3.5-5.1)
[2023-03-16] MEDS: LIDOCAINE 5% 1 PATCH TD SCH (07:54)
[2023-03-16] MEDS: POT PHOSPHATE MONOBASIC W/ SOD TAB PO SCH ×2 (07:55→11:37)
[2023-03-16] MEDS: ENOXAPARIN INJ 40 MG/0.4 ML SYR SQ SCH (07:55)
[2023-03-16] MEDS: ADVANCED PROBIOTIC 1250 MG CAPSULE PO SCH (07:55)
[2023-03-16] MEDS: CHOLECALCIFEROL 1,000 UNITS 25 MCG TAB PO SCH (07:55)
[2023-03-16] MEDS: LORATADINE 10 MG TAB PO SCH (07:55)
--- NOTE | 2023-03-16 12:17 | Hospitalist Progress Note ---
Date of Service March 16, 2023 Assessment & Plan (1) Cellulitis: (2) Sepsis: Plan 57-year-old male with PMH of COPD, GERD, chronic hyponatremia, chronic anemia [baseline hemoglobin 13], hypothyroidism, past tobacco/alcohol use presented to the ED 03/07 with complaint of 1 day history of achy left leg swelling with fever and chills. Patient reports ongoing cough for several weeks productive of minimal clear sputum; denies any sore throat. Patient reports having similar LLE episode in 2016. No tick bites per patient. He is being managed for the following: Sepsis POA: Resolved Fever, [place], RR elevated plus LLE cellulitis. Procalcitonin 0.44-->1.45-->0.82, lactic acid normal at presentation. LLE cellulitis-continues to improve on empiric antibiotics Denies any trauma, insect bites, excoriations Pt w/ c/o LE swelling for long time (years) Outpatient review of PCP office visit from 02/10/21 noted patient had had left leg edema for 6 months at the time BNP was 127 on presentation. Echo was obtained to rule out underlying heart failure, came back EF 60 to 65% with normal LV and RV size and function. Outpatient chart review 03/07 with dobutamine stress echo on 02/11/2014 with EF of 55 to 59% Admitting imagings: LLE Doppler: Negative for DVT. LLE CT: Subcutaneous soft tissue edema, osteopenia noted CT head and CXR: No acute finding Was having intermittent fevers Blood cultures on admission are negative. Repeat blood cultures negative so far Surgery eval and recs appreciated LE MRI noted cellulitis. No abscess or OM. Mild edema within medial head of gastrocnemius which could be due to chronic eccentric overload. Given overlying subcut edema, myositis cannot be excluded Was on cefepime, vancomycin and flagyl On 03/15/23,I discussed with ID Dr Quesada. We reviewed patient. ID recommendsed changing vanco to linezolid and getting repeat imaging Vancomycin stopped and Linezolid started Will continue cefepime and flagyl for now USS of LLE did not show any abscess Continue leg elevation, Lasix as needed Acute renal failure: Resolved. Creatinine back to baseline of 0.6 Hypophosphatemia-resolved with repletion Hypokalemia-repleted, recheck in a.m. Hyponatremia-chronic, mild, stable Osteopenia/Vitamin D deficiency: Noted in CT LLE; Vitamin D level is 19.8, continue vitamin D supplementation Patient aware to coordinate with PCP office for considering DEXA scan as an outpatient. Left hand distal one-third fifth metacarpal fracture: Questionable acute nondisplaced fracture of the fifth metacarpal. Patient's x-ray left hand was obtained 03/07 to 03/08 overnight due to concerns of left hand cellulitis due to patient complaining left hand pain. Ortho recs noted. No surgery needed Other chronic medical conditions: COPD, baseline lung status hx GERD: Continue with home PPI hypothyroidism, not on maintenance medications citing severe adverse reaction in the past past tobacco/alcohol abuse Prediabetes: A1c of 6.2, prediabetes. 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 DVT prophylaxis: Lovenox Full code Admission and Anticipated Discharge Date Admission Date: March 06, 2023 Subjective Patient was seen and examined at bedside. His cellulitis continues to improve. Leg edema continues to improve. Still has intermittent pain. No fever, chills, chest pain or shortness of breath nausea or vomiting. Review of Systems Review of Systems: All systems reviewed & are unremarkable except as noted in Subjective Physical Exam Physical Exam: General: Sitting comfortably in bed, not in distress, on room air HEENT: EOMI, HUMBLE, MMM Chest: Clear breath sounds bilaterally, no wheezes or crackles CVS: Regular rate and rhythm, normal heart sounds, no murmur Abdomen: Soft, non tender, not distended, normal bowel sounds Neuro: Awake, alert, oriented, conversing well, non focal Extremities: Left lower extremity cellulitis and edema improving, still with warmth and erythema with some tenderness, Mepilex+ Results & Data Results & Data Vital Signs (Past 12 Hours) Vital Signs Temp Pulse Pulse Resp BP Pulse Ox O2 Del Method 03/16/23 12:04 36.8 C 88 16 105/61 96 Room Air 03/16/23 09:20 Room Air 03/16/23 08:01 37.0 C 85 16 117/65 96 Room Air 03/16/23 07:37 84 03/16/23 03:17 37.4 C 84 18 108/56 L 93 Room Air Laboratory Results Short CBC 06/14/23 Range/Units 05:52 WBC 8.49 (4.8-10.8) K/ul Hgb 9.5 L (14.0-18.0) g/dl Hct 27.3 L (42.0-52.0) % Plt Count 378 (130-400) K/uL [facility] 03/16/23 05:52 Sodium 133 L Potassium 3.4 L Chloride 98 Carbon Dioxide 26 BUN 10 Creatinine 0.62 Glucose 119 H Calcium 8.1 L Medications Administered Current Inpatient Medications Acetaminophen (Acetaminophen 325 Mg Tab) 650 mg PO Q4H PRN PRN Reason: Pain or Fever Stop: 04/06/23 02:11 Last Admin: 03/13/23 22:31 Dose: 650 mg Enoxaparin Sodium (Enoxaparin Inj 40 Mg/0.4 Ml Syr) 40 mg SQ QAM [facility] Stop: 04/06/23 08:59 Last Admin: 03/16/23 07:55 Dose: 40 mg Promethazine HCl 12.5 mg/ (Sodium Chloride) 50.5 mls @ 202 mls/hr IV Q6H PRN PRN Reason: Nausea And Vomiting Stop: 04/05/23 23:53 Last Infusion: 03/14/23 11:29 Dose: Infused Cefepime HCl 2,000 mg/ Syringe 20 mls @ 5 mls/min IV Q8H [facility]; Protocol Stop: 03/18/23 03:59 Last Admin: 03/16/23 11:35 Dose: 5 mls/min Metronidazole (Flagyl) 500 mg in 100 mls @ 100 mls/hr IV Q8H [facility] Stop: 03/18/23 09:44 Last Infusion: 03/16/23 11:35 Dose: Infused Linezolid (Zyvox) 600 mg in 300 mls @ 200 mls/hr IV Q12H [facility] Stop: 03/21/23 17:59 Last Infusion: 03/16/23 08:19 Dose: Infused Lactobacillus Acidophilus (Advanced Probiotic 1250 Mg Capsule) 2 cap PO DAILY [facility] Stop: 04/07/23 08:59 Last Admin: 03/16/23 07:55 Dose: 2 cap Levalbuterol HCl (Levalbuterol 1.25 Mg/3 Ml Neb) 1.25 mg NEB Q4H PRN; Protocol PRN Reason: sob wheeze Stop: 04/06/23 04:36 Last Admin: 03/08/23 08:52 Dose: 1.25 mg Lidocaine (Lidocaine 5% 1 Patch) 1 patch TD DAILY [facility] Stop: 04/10/23 13:59 Last Admin: 03/16/23 07:54 Dose: Not Given Loratadine (Loratadine 10 Mg Tab) 10 mg PO QAM [facility] Stop: 04/13/23 09:59 Last Admin: 03/16/23 07:55 Dose: 10 mg Lorazepam (Lorazepam 0.5 Mg Tab) 0.5 mg PO TID PRN PRN Reason: Anxiety Stop: 04/05/23 23:53 Last Admin: 03/10/23 12:18 Dose: 0.5 mg Miscellaneous (Remove Lidoderm Patch) 1 each N/A HS [facility] Stop: 04/10/23 22:59 Last Admin: 03/15/23 19:56 Dose: Not Given Oxycodone HCl (Oxycodone Hcl Ir 5 Mg Tab (Immediate Release)) 5 mg PO Q4H PRN PRN Reason: Pain Stop: 03/20/23 23:53 Last Admin: 03/15/23 02:34 Dose: 5 mg Pantoprazole Sodium (Pantoprazole 40 Mg Tab) 40 mg PO DAILYBB [facility] Stop: 04/06/23 06:29 Last Admin: 03/16/23 06:11 Dose: 40 mg Potassium Phosphate (Pot Phosphate Monobasic W/ Sod Tab) 1 tab PO QID [facility] Stop: 04/11/23 08:59 Last Admin: 03/16/23 11:37 Dose: 1 tab Vitamin D (Cholecalciferol 1,000 Units 25 Mcg Tab) 1,000 units PO QAM [facility] Stop: 04/09/23 08:59 Last Admin: 03/16/23 07:55 Dose: 1,000 units
[2023-03-16] MEDS: POTASSIUM CHLORIDE CRTAB 20 MEQ TABCR PO SCH (12:49)
[2023-03-16 14:23] LABS: Lyme Ab IgG w/WB Rflx Negative (Negative); Lyme Ab IgM w/WB Rflx Negative (Negative)
[2023-03-16] MEDS: oxyCODONE HCL IR 5 MG TAB (IMMEDIATE RELEASE) PO PRN (21:56)
[2023-03-17] MEDS: metroNIDAZOLE 500 MG/100 ML BAG IV SCH ×2 (02:21→09:14)
[2023-03-17] MEDS: CEFEPIME 2,000 MG in SYRINGE 0 ML IV SCH ×3 (03:24→19:50)
[2023-03-17] MEDS: LINEZOLID 600 MG/300 ML BAG IV SCH ×2 (05:55→17:34)
[2023-03-17] MEDS: PANTOprazole 40 MG TAB PO SCH (05:55)
[2023-03-17] MEDS: oxyCODONE HCL IR 5 MG TAB (IMMEDIATE RELEASE) PO PRN ×2 (06:00→21:31)
[2023-03-17 07:17] LABS: Hemoglobin 9.6 g/dl (14.0-18.0); Mean Corpuscular Hemoglobin 30.5 pg (25.0-34.0); Mean Corpuscular Hgb Conc 34.3 g/dL (32.0-36.0); Mean Corpuscular Volume 88.9 fL (80.0-100.0); Mean Platelet Volume 10.5 fL (9.4-12.4); Platelet Count 398 K/uL (130-400); RDW Coefficient of Variation 13.8 % (11.5-14.5); RDW Standard Deviation 44.9 fL (36.4-46.3); Red Blood Count 3.15 M/uL (4.70-6.10)
[2023-03-17 07:31] LABS: BUN Creatinine Ratio 18.5 (10-20); C Reactive Protein 3.04 mg/dl (0-0.5); Calcium 8.2 mg/dl (8.6-10.3); Creatinine Clr Calc Pharmacy 125.6 ml/min; Est GFR (African American) 123.4 ml/min; Est GFR (Non-African American) 106.5 ml/min; Potassium 3.8 mmol/L (3.5-5.1)
[2023-03-17] MEDS: POTASSIUM CHLORIDE CRTAB 20 MEQ TABCR PO SCH (09:13)
[2023-03-17] MEDS: CHOLECALCIFEROL 1,000 UNITS 25 MCG TAB PO SCH (09:13)
[2023-03-17] MEDS: LIDOCAINE 5% 1 PATCH TD SCH (09:13)
[2023-03-17] MEDS: ADVANCED PROBIOTIC 1250 MG CAPSULE PO SCH (09:13)
[2023-03-17] MEDS: LORATADINE 10 MG TAB PO SCH (09:13)
[2023-03-17] MEDS: ENOXAPARIN INJ 40 MG/0.4 ML SYR SQ SCH (09:14)
[2023-03-17] MEDS ORDERED: FUROSEMIDE 40 MG/4 ML VIAL IV ONE (09:51)
[2023-03-17] MEDS ORDERED: GABAPENTIN 100 MG CAP PO SCH (11:05)
[2023-03-17] MEDS: KETOROLAC TROMETHAMINE 15 MG/ML VIAL IV PRN (11:12)
--- NOTE | 2023-03-17 12:54 | Hospitalist Progress Note ---
Date of Service March 17, 2023 Assessment & Plan (1) Cellulitis: (2) Sepsis: Plan 57-year-old male with PMH of COPD, GERD, chronic hyponatremia, chronic anemia [baseline hemoglobin 13], hypothyroidism, past tobacco/alcohol use presented to the ED 03/07 with complaint of 1 day history of achy left leg swelling with fever and chills. Patient reports ongoing cough for several weeks productive of minimal clear sputum; denies any sore throat. Patient reports having similar LLE episode in 2016. No tick bites per patient. He is being managed for the following: Sepsis POA: Resolved Fever, [place], RR elevated plus LLE cellulitis. Procalcitonin 0.44-->1.45-->0.82->0.05, lactic acid normal at presentation. LLE cellulitis-continues to improve on empiric antibiotics Denies any trauma, insect bites, excoriations Pt w/ c/o LE swelling for long time (years) Outpatient review of PCP office visit from 02/10/21 noted patient had had left leg edema for 6 months at the time BNP was 127 on presentation. Echo was obtained to rule out underlying heart failure, came back EF 60 to 65% with normal LV and RV size and function. Outpatient chart review 03/07 with dobutamine stress echo on 02/11/2014 with EF of 55 to 59% Admitting imagings: LLE Doppler: Negative for DVT. LLE CT: Subcutaneous soft tissue edema, osteopenia noted CT head and CXR: No acute finding Was having intermittent fevers Blood cultures on admission are negative. Repeat blood cultures negative so far Surgery eval and recs appreciated LE MRI noted cellulitis. No abscess or OM. Mild edema within medial head of gastrocnemius which could be due to chronic eccentric overload. Given overlying subcut edema, myositis cannot be excluded US of LLE did not show any abscess Tick borne illness negative so far Was on cefepime, vancomycin and flagyl On 03/15/23,prior hospitatalist discussed with ID Dr Quesada. ID recommended changing vanco to linezolid and getting repeat imaging Vancomycin stopped and Linezolid started Will continue cefepime. Will discontinue flagyl. Continue leg elevation Will give a dose of lasix today for the edema Will try toradol prn along with low dose gabapentin for his persistent LE pain. Trial of ice pack prn. Will need to repeat LE US for DVT if continues to have persistent pain despite improvement in his cellulitis Acute renal failure: Resolved. Creatinine back to baseline of 0.6 Hypophosphatemia-resolved with repletion Hypokalemia-resolved Hyponatremia-chronic, mild, stable Osteopenia/Vitamin D deficiency: Noted in CT LLE; Vitamin D level is 19.8, continue vitamin D supplementation Patient aware to coordinate with PCP office for considering DEXA scan as an outpatient. Left hand distal one-third fifth metacarpal fracture: Questionable acute nondisplaced fracture of the fifth metacarpal. Patient's x-ray left hand was obtained 6/ to 03/08 overnight due to concerns of left hand cellulitis due to patient complaining left hand pain. Ortho recs noted. No surgery needed Other chronic medical conditions: COPD, at baseline GERD: Continue with home PPI Past tobacco/alcohol abuse Prediabetes: A1c of 6.2, prediabetes. 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 DVT prophylaxis: Lovenox Full code Anticipate discharge in 1-2 days if continues to improve Admission and Anticipated Discharge Date Admission Date: March 06, 2023 Subjective Patient was seen and examined at bedside. He continues to have pain in left leg-oxycodone and leg elevation did not help. States he has restless leg syndrome but this is different. The pain has been constant and gets worse at times. Now burning in nature. No fever, chills, nausea or vomiting. Appetite okay. Voiding without issues. Review of Systems Review of Systems: All systems reviewed & are unremarkable except as noted in Subjective Physical Exam Physical Exam: General: Sitting in bed, not in acute distress, some discomfort due to pain, on room air HEENT: EOMI, HUMBLE, MMM Chest: Clear breath sounds bilaterally, no wheezes or crackles CVS: Regular rate and rhythm, normal heart sounds, no murmur Abdomen: Soft, non tender, not distended, normal bowel sounds Neuro: Awake, alert, oriented, conversing well, non focal Extremities: Left lower extremity cellulitis and edema improving, still with warmth and erythema with some tenderness, Mepilex+. Pictures from yesterday reviewed on his phone Results & Data Results & Data Vital Signs (Past 12 Hours) Vital Signs Temp Pulse Pulse Resp BP Pulse Ox O2 Del Method 03/17/23 12:11 36.9 C 86 16 90/45 L 97 Room Air 03/17/23 08:00 89 03/17/23 08:24 36.8 C 85 16 102/61 94 Room Air 03/17/23 03:00 36.8 C 81 18 111/67 95 Room Air 03/17/23 02:53 91 H 03/17/23 01:42 Room Air Laboratory Results Short CBC 03/17/23 Range/Units 06:17 WBC 7.70 (4.8-10.8) K/ul Hgb 9.6 L (14.0-18.0) g/dl Hct 28.0 L (42.0-52.0) % Plt Count 398 (130-400) K/uL [facility] 03/17/23 06:17 Sodium 133 L Potassium 3.8 Chloride 99 Carbon Dioxide 26 BUN 12 Creatinine 0.65 Glucose 134 H Calcium 8.2 L Medications Administered Current Inpatient Medications Acetaminophen (Acetaminophen 325 Mg Tab) 650 mg PO Q4H PRN PRN Reason: Pain or Fever Stop: 04/06/23 02:11 Last Admin: 03/13/23 22:31 Dose: 650 mg Enoxaparin Sodium (Enoxaparin Inj 40 Mg/0.4 Ml Syr) 40 mg SQ QAM [facility] Stop: 04/06/23 08:59 Last Admin: 03/17/23 09:14 Dose: 40 mg Gabapentin (Gabapentin 100 Mg Cap) 100 mg PO BID [facility] Stop: 04/16/23 11:04 Promethazine HCl 12.5 mg/ (Sodium Chloride) 50.5 mls @ 202 mls/hr IV Q6H PRN PRN Reason: Nausea And Vomiting Stop: 04/05/23 23:53 Last Infusion: 03/14/23 11:29 Dose: Infused Cefepime HCl 2,000 mg/ Syringe 20 mls @ 5 mls/min IV Q8H [facility]; Protocol Stop: 03/18/23 03:59 Last Admin: 03/17/23 03:24 Dose: 5 mls/min Linezolid (Zyvox) 600 mg in 300 mls @ 200 mls/hr IV Q12H [facility] Stop: 03/21/23 17:59 Last Infusion: 03/17/23 09:18 Dose: Infused Ketorolac Tromethamine (Ketorolac Tromethamine 15 Mg/Ml Vial) 15 mg IV Q6H PRN PRN Reason: Pain Stop: 03/22/23 09:48 Last Admin: 03/17/23 11:12 Dose: 15 mg Lactobacillus Acidophilus (Advanced Probiotic 1250 Mg Capsule) 2 cap PO DAILY [facility] Stop: 04/07/23 08:59 Last Admin: 03/17/23 09:13 Dose: 2 cap Levalbuterol HCl (Levalbuterol 1.25 Mg/3 Ml Neb) 1.25 mg NEB Q4H PRN; Protocol PRN Reason: sob wheeze Stop: 04/06/23 04:36 Last Admin: 03/08/23 08:52 Dose: 1.25 mg Lidocaine (Lidocaine 5% 1 Patch) 1 patch TD DAILY [facility] Stop: 04/10/23 13:59 Last Admin: 03/17/23 09:13 Dose: Not Given Loratadine (Loratadine 10 Mg Tab) 10 mg PO QAM [facility] Stop: 04/13/23 09:59 Last Admin: 03/17/23 09:13 Dose: 10 mg Lorazepam (Lorazepam 0.5 Mg Tab) 0.5 mg PO TID PRN PRN Reason: Anxiety Stop: 04/05/23 23:53 Last Admin: 03/10/23 12:18 Dose: 0.5 mg Miscellaneous (Remove Lidoderm Patch) 1 each N/A HS [facility] Stop: 04/10/23 22:59 Last Admin: 03/16/23 21:44 Dose: Not Given Oxycodone HCl (Oxycodone Hcl Ir 5 Mg Tab (Immediate Release)) 5 mg PO Q4H PRN PRN Reason: Pain Stop: 03/20/23 23:53 Last Admin: 03/17/23 06:00 Dose: 5 mg Pantoprazole Sodium (Pantoprazole 40 Mg Tab) 40 mg PO DAILYBB [facility] Stop: 04/06/23 06:29 Last Admin: 03/17/23 05:55 Dose: 40 mg Potassium Chloride (Potassium Chloride Crtab 20 Meq Tabcr) 20 meq PO DAILY [facility] Stop: 04/15/23 12:14 Last Admin: 03/17/23 09:13 Dose: 20 meq Vitamin D (Cholecalciferol 1,000 Units 25 Mcg Tab) 1,000 units PO QAM [facility] Stop: 04/09/23 08:59 Last Admin: 03/17/23 09:13 Dose: 1,000 units
[2023-03-17] MEDS: GABAPENTIN 300 MG CAP PO SCH (21:31)
[2023-03-18] MEDS: PANTOprazole 40 MG TAB PO SCH (05:41)
[2023-03-18] MEDS: LINEZOLID 600 MG/300 ML BAG IV SCH (05:45)
[2023-03-18] MEDS: oxyCODONE HCL IR 5 MG TAB (IMMEDIATE RELEASE) PO PRN ×3 (05:51→21:43)
[2023-03-18 08:35] LABS: Hematocrit (blood only) 29.4 % (42.0-52.0); Hemoglobin 9.8 g/dl (14.0-18.0); Mean Corpuscular Hemoglobin 30.2 pg (25.0-34.0); Mean Corpuscular Hgb Conc 33.3 g/dL (32.0-36.0); Mean Corpuscular Volume 90.5 fL (80.0-100.0); Mean Platelet Volume 10.3 fL (9.4-12.4); Platelet Count 437 K/uL (130-400); RDW Coefficient of Variation 13.7 % (11.5-14.5); RDW Standard Deviation 45.4 fL (36.4-46.3); Red Blood Count 3.25 M/uL (4.70-6.10); White Blood Count 7.55 K/ul (4.8-10.8)
[2023-03-18 08:47] LABS: BUN Creatinine Ratio 18.8 (10-20); C Reactive Protein 2.2 mg/dl (0-0.5); Calcium 8.5 mg/dl (8.6-10.3); Creatinine Clr Calc Pharmacy 118.5 ml/min; Est GFR (African American) 120.4 ml/min; Est GFR (Non-African American) 103.9 ml/min; Potassium 3.9 mmol/L (3.5-5.1)
[2023-03-18] MEDS: GABAPENTIN 300 MG CAP PO SCH ×2 (08:55→21:44)
[2023-03-18] MEDS: ENOXAPARIN INJ 40 MG/0.4 ML SYR SQ SCH (08:56)
[2023-03-18] MEDS: ADVANCED PROBIOTIC 1250 MG CAPSULE PO SCH (08:56)
[2023-03-18] MEDS: CHOLECALCIFEROL 1,000 UNITS 25 MCG TAB PO SCH (08:57)
[2023-03-18] MEDS: LIDOCAINE 5% 1 PATCH TD SCH (08:57)
[2023-03-18] MEDS: POTASSIUM CHLORIDE CRTAB 20 MEQ TABCR PO SCH (08:57)
[2023-03-18] MEDS: LORATADINE 10 MG TAB PO SCH (08:57)
--- NOTE | 2023-03-18 09:51 | Ultrasound Report ---
US venous doppler LE LT CLINICAL HISTORY: r/o DVT TECHNIQUE: Left lower extremity real-time compression venous ultrasound with Color Doppler imaging. U tilizing real-time ultrasonic imaging multiple real time high-resolution ultrasonic images with compr ession and noncompression maneuvers of the deep venous system in addition to color doppler imaging we re performed from the common femoral vein through the proximal calf veins. COMPARISON: Comparison is made to a venous Doppler 03/07/2023 FINDINGS/IMPRESSION: Currently there is normal compressibility of the deep venous system from the common femoral vein thro ugh the proximal calf veins. Redemonstration of groin lymph nodes measuring up to 2.0 cm in short ax is with preserved fatty nicole. ACT 112: Negative or not required by law. Electronically signed by: Grant Le M.D. 03/18/2023 9:49 AM
[2023-03-18] MEDS: KETOROLAC TROMETHAMINE 15 MG/ML VIAL IV PRN (10:46)
--- NOTE | 2023-03-18 12:18 | Hospitalist Progress Note ---
Date of Service March 18, 2023 Assessment & Plan (1) Cellulitis: (2) Sepsis: Plan 57-year-old male with PMH of COPD, GERD, chronic hyponatremia, chronic anemia [baseline hemoglobin 13], hypothyroidism, past tobacco/alcohol use presented to the ED 03/07 with complaint of 1 day history of achy left leg swelling with fever and chills. Patient reports ongoing cough for several weeks productive of minimal clear sputum; denies any sore throat. Patient reports having similar LLE episode in 2016. No tick bites per patient. He is being managed for the following: Sepsis POA: Resolved Fever, [place], RR elevated plus LLE cellulitis. Procalcitonin 0.44-->1.45-->0.82->0.05, lactic acid normal at presentation. CRP trending down LLE cellulitis-continues to improve on empiric antibiotics Denies any trauma, insect bites, excoriations Pt w/ c/o LE swelling for long time (years) Outpatient review of PCP office visit from 02/10/21 noted patient had had left leg edema for 6 months at the time BNP was 127 on presentation. Echo was obtained to rule out underlying heart failure, came back EF 60 to 65% with normal LV and RV size and function. Outpatient chart review 03/07 with dobutamine stress echo on 02/11/2014 with EF of 55 to 59% Admitting imagings: LLE Doppler: Negative for DVT. LLE CT: Subcutaneous soft tissue edema, osteopenia noted CT head and CXR: No acute finding Blood cultures negative. Surgery eval and recs appreciated LE MRI noted cellulitis. No abscess or OM. Mild edema within medial head of gastrocnemius which could be due to chronic eccentric overload. Given overlying subcut edema, myositis cannot be excluded US LLE 03/14 did not show any abscess Repeat US LE 03/18 with no DVT Tick borne illness negative so far Was on cefepime, vancomycin and flagyl On 03/15/23,prior hospitatalist discussed with ID Dr Quesada. ID recommended changing vanco to linezolid and getting repeat imaging Vancomycin stopped and Linezolid started with continuation of cefepime. Flagyl discontinued 03/17. Continue leg elevation Lasix prn for edema Patient continues to have significantly disproportionate pain left lower extremity despite improvement in his cellulitis and edema. Ultrasound lower extremity was negative for DVT today. Reviewed ID notes. Patient has severe contrast allergy, hence will get repeat MRI to look for complications. Might need surgery or ID reevaluation depending on the imaging findings. Acute renal failure: Resolved. Creatinine back to baseline of 0.6 Hyponatremia-chronic, mild, relatively stable Osteopenia/Vitamin D deficiency: Noted in CT LLE; Vitamin D level is 19.8, continue vitamin D supplementation Patient aware to coordinate with PCP office for considering DEXA scan as an outpatient. Left hand distal one-third fifth metacarpal fracture: Questionable acute nondisplaced fracture of the fifth metacarpal. Patient's x-ray left hand was obtained / to 03/08 overnight due to concerns of left hand cellulitis due to patient complaining left hand pain. Ortho recs noted. No surgery needed Other chronic medical conditions: COPD, at baseline GERD: Continue with home PPI Past tobacco/alcohol abuse Prediabetes: A1c of 6.2, prediabetes. 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 DVT prophylaxis: Lovenox Full code Disposition-continue empiric IV antibiotics. Continues to have significant pain despite improvement cellulitis, repeat imaging pending. Admission and Anticipated Discharge Date Admission Date: March 06, 2023 Subjective Patient was seen and examined at bedside. He continues to have significant pain in left leg despite improvement in cellulitis and despite the pain medication. No fever, chills, nausea or vomiting. Appetite okay. Review of Systems Review of Systems: All systems reviewed & are unremarkable except as noted in Subjective Physical Exam Physical Exam: General: Sitting in bed, not in acute distress, some discomfort due to pain, on room air HEENT: EOMI, HUMBLE, MMM Chest: Clear breath sounds bilaterally, no wheezes or crackles CVS: Regular rate and rhythm, normal heart sounds, no murmur Abdomen: Soft, non tender, not distended, normal bowel sounds Neuro: Awake, alert, oriented, conversing well, non focal Extremities: Left lower extremity cellulitis and edema improving, still with warmth and erythema with some tenderness, Mepilex+. Results & Data Results & Data Vital Signs (Past 12 Hours) Vital Signs Temp Pulse Pulse Resp BP Pulse Ox O2 Del Method 03/18/23 12:08 37.0 C 81 18 104/64 95 Room Air 03/18/23 07:38 83 03/18/23 07:09 37.0 C 83 18 105/64 95 Room Air 03/18/23 03:46 37 C 80 18 103/64 94 Room Air Laboratory Results Short CBC 03/18/23 Range/Units 08:12 WBC 7.55 (4.8-10.8) K/ul Hgb 9.8 L (14.0-18.0) g/dl Hct 29.4 L (42.0-52.0) % Plt Count 437 H (130-400) K/uL BMP 03/18/23 08:12 Sodium 131 L Potassium 3.9 Chloride 97 L Carbon Dioxide 26 BUN 13 Creatinine 0.69 Glucose 164 H Calcium 8.5 L Diagnostic Findings Venous Doppler Study 03/18/23 08:25 US venous doppler LE LT CLINICAL HISTORY: r/o DVT TECHNIQUE: Left lower extremity real-time compression venous ultrasound with Color Doppler imaging. Utilizing real-time ultrasonic imaging multiple real time high-resolution ultrasonic images with compression and noncompression maneuvers of the deep venous system in addition to color doppler imaging were performed from the common femoral vein through the proximal calf veins. COMPARISON: Comparison is made to a venous Doppler 03/07/2023 FINDINGS/IMPRESSION: Currently there is normal compressibility of the deep venous system from the common femoral vein through the proximal calf veins. Redemonstration of groin lymph nodes measuring up to 2.0 cm in short axis with preserved fatty nicole. ACT 112: Negative or not required by law. Electronically signed by: Grant Le M.D. 03/18/2023 9:49 AM Medications Administered Current Inpatient Medications Acetaminophen (Acetaminophen 325 Mg Tab) 650 mg PO Q4H PRN PRN Reason: Pain or Fever Stop: 04/06/23 02:11 Last Admin: 03/13/23 22:31 Dose: 650 mg Enoxaparin Sodium (Enoxaparin Inj 40 Mg/0.4 Ml Syr) 40 mg SQ QAM [facility] Stop: 04/06/23 08:59 Last Admin: 03/18/23 08:56 Dose: 40 mg Gabapentin (Gabapentin 300 Mg Cap) 300 mg PO BID [facility] Stop: 04/16/23 20:59 Last Admin: 03/18/23 08:55 Dose: 300 mg Promethazine HCl 12.5 mg/ (Sodium Chloride) 50.5 mls @ 202 mls/hr IV Q6H PRN PRN Reason: Nausea And Vomiting Stop: 04/05/23 23:53 Last Infusion: 03/14/23 11:29 Dose: Infused Linezolid (Zyvox) 600 mg in 300 mls @ 200 mls/hr IV Q12H [facility] Stop: 03/21/23 17:59 Last Infusion: 03/18/23 07:30 Dose: Infused Ketorolac Tromethamine (Ketorolac Tromethamine 15 Mg/Ml Vial) 15 mg IV Q6H PRN PRN Reason: Pain Stop: 03/22/23 09:48 Last Admin: 03/18/23 10:46 Dose: 15 mg Lactobacillus Acidophilus (Advanced Probiotic 1250 Mg Capsule) 2 cap PO DAILY [facility] Stop: 04/07/23 08:59 Last Admin: 03/18/23 08:56 Dose: 2 cap Levalbuterol HCl (Levalbuterol 1.25 Mg/3 Ml Neb) 1.25 mg NEB Q4H PRN; Protocol PRN Reason: sob wheeze Stop: 04/06/23 04:36 Last Admin: 03/08/23 08:52 Dose: 1.25 mg Lidocaine (Lidocaine 5% 1 Patch) 1 patch TD DAILY [facility] Stop: 04/10/23 13:59 Last Admin: 03/18/23 08:57 Dose: 1 patch Loratadine (Loratadine 10 Mg Tab) 10 mg PO QAM [facility] Stop: 04/13/23 09:59 Last Admin: 03/18/23 08:57 Dose: 10 mg Lorazepam (Lorazepam 0.5 Mg Tab) 0.5 mg PO TID PRN PRN Reason: Anxiety Stop: 04/05/23 23:53 Last Admin: 03/10/23 12:18 Dose: 0.5 mg Miscellaneous (Remove Lidoderm Patch) 1 each N/A HS [facility] Stop: 04/10/23 22:59 Last Admin: 03/17/23 21:34 Dose: Not Given Oxycodone HCl (Oxycodone Hcl Ir 5 Mg Tab (Immediate Release)) 5 mg PO Q4H PRN PRN Reason: Pain Stop: 03/20/23 23:53 Last Admin: 03/18/23 05:51 Dose: 5 mg Pantoprazole Sodium (Pantoprazole 40 Mg Tab) 40 mg PO DAILYBB [facility] Stop: 04/06/23 06:29 Last Admin: 03/18/23 05:41 Dose: 40 mg Potassium Chloride (Potassium Chloride Crtab 20 Meq Tabcr) 20 meq PO DAILY [facility] Stop: 04/15/23 12:14 Last Admin: 03/18/23 08:57 Dose: 20 meq Vitamin D (Cholecalciferol 1,000 Units 25 Mcg Tab) 1,000 units PO QAM [facility] Stop: 04/09/23 08:59 Last Admin: 03/18/23 08:57 Dose: 1,000 units
[2023-03-18] MEDS: LINEZOLID 600 MG TAB PO SCH (17:08)
[2023-03-18] MEDS ORDERED: GADOBUTROL 65ML VIAL IV ONE (18:53)
--- NOTE | 2023-03-18 20:13 | Magnetic Resonance Report ---
Exam(s): MRI EXTREMITY W/WO Contrast IV Amt: 8.2cc gadavist EXAM: MR Left Lower Extremity Without and With Intravenous Contrast CLINICAL HISTORY: Reason for exam: persistent pain/cellulitis- look for complications. TECHNIQUE: Multiplanar magnetic resonance images of the left lower extremity without and with intravenous contrast. CONTRAST: Patient received 8.2cc gadavist of IV contrast COMPARISON: No relevant prior studies available. FINDINGS: Circumferential subcutaneous edema and skin thickening, consistent with cellulitis, which preferentially involves the anterior and medial aspects of the calf. Mild ulceration along the medial aspect of the calf. No fluid collection or abscess. No deep soft tissue infection. There is mild edema in the medial head of the gastrocnemius, which may be secondary to chronic eccentric overload. No MR evidence of osteomyelitis. Intact tibia and fibula. No periosteal edema. IMPRESSION: Circumferential subcutaneous edema and skin thickening, consistent with cellulitis, which preferentially involves the anterior and medial aspects of the calf. Mild ulceration along the medial aspect of the calf. Correlate with physical exam. No fluid collection or abscess. No deep soft tissue infection. No MR evidence of osteomyelitis. Electronically signed by: Go Bedoya MD 03/18/23 20:12 PM
[2023-03-18] MEDS: LORazepam 0.5 MG TAB PO PRN (21:44)
[2023-03-19] MEDS: LINEZOLID 600 MG TAB PO SCH (05:28)
[2023-03-19] MEDS: PANTOprazole 40 MG TAB PO SCH (05:28)
[2023-03-19] MEDS ORDERED: cephALEXin 500 MG CAP PO SCH (09:00)
[2023-03-19] MEDS: LIDOCAINE 5% 1 PATCH TD SCH (09:17)
[2023-03-19] MEDS: ADVANCED PROBIOTIC 1250 MG CAPSULE PO SCH (09:21)
[2023-03-19] MEDS: GABAPENTIN 300 MG CAP PO SCH (09:21)
[2023-03-19] MEDS: LORATADINE 10 MG TAB PO SCH (09:21)
[2023-03-19] MEDS: CHOLECALCIFEROL 1,000 UNITS 25 MCG TAB PO SCH (09:21)
[2023-03-19] MEDS: POTASSIUM CHLORIDE CRTAB 20 MEQ TABCR PO SCH (09:21)
[2023-03-19] MEDS: ENOXAPARIN INJ 40 MG/0.4 ML SYR SQ SCH (09:22)
--- NOTE | 2023-03-19 09:24 | Discharge Summary ---
Date of Service March 19, 2023 Admission HPI Per Admitting Provider History obtained from patient, family, and records. Medical history significant for COPD, GERD, chronic hyponatremia, chronic anemia (baseline hemoglobin 13), hypothyroidism, past tobacco/alcohol use. Last confinement 2015 under Orthopedics service for elective left total hip arthroplasty. 1 day history of achy left leg swelling with fever chills. No chest pain, or unusual shortness of breath. Similar episode to 2016. No tick bites as per patient. Achy headache, stomach upset with nausea as per patient. Patient consulted ER for evaluation. IV ceftriaxone administered at the ER for sepsis. Medical History as above Surgical History : Inguinal hernia repair, hip replacements Family History : Colon cancer, DM Personal/Social history : Past tobacco/alcohol abuse, disabled Admission Exam Per Admitting Provider GENERAL: Slightly uncomfortable, slightly anxious, pleasant, no respiratory dis tress SKIN: Normal color, warm HEENT: [place] palpebral conjunctivae, no ptosis, dry buccal mucosa NECK : Supple, no tenderness CHEST : CTA, no tenderness HEART : RRR, no obvious murmurs ABDOMEN: Some distention, nontender EXTREMITIES : Tender left lower leg swelling, no other conspicuous deformities noted NEUROLOGIC : Coherent, no facial asymmetry, no other gross focality Principal Diagnosis Sepsis due to LLE cellulitis Discharge Exam General: Sitting in bed, not in acute distress, on room air HEENT: EOMI, HUMBLE, MMM Chest: Clear breath sounds bilaterally, no wheezes or crackles CVS: Regular rate and rhythm, normal heart sounds, no murmur Abdomen: Soft, non tender, not distended, normal bowel sounds Neuro: Awake, alert, oriented, conversing well, non focal Extremities: Left lower extremity cellulitis and edema continues to improve Discharge Data Allergies Allergy/AdvReac Type Severity Reaction Status Date / Time Iodinated Contrast Media Allergy Intermediate SEVERE Verified 03/06/23 19:35 HIVES propoxyphene AdvReac Intermediate N/V Verified 03/06/23 19:35 Consultations 03/06/23 20:45 ED Decision to Admit Stat 03/08/23 07:43 Consult Orthopedic Surgery Routine 03/11/23 07:16 Consult Infectious Diseases Routine Ordered Studies 03/06/23 21:22 CT head/brain wo con Stat 03/06/23 21:28 CT leg [CT tib/fib LT wo con] Stat 03/06/23 23:50 US venous doppler LE LT Stat 03/09/23 12:31 MRI Leg [MR lower leg LT wo/w con] Urgent 03/14/23 11:44 US leg [US extremity non-vascular ltd] Urgent 03/18/23 08:24 MRI Lower Leg [MR lower leg LT wo/w con] Routine 03/18/23 08:25 US venous doppler LE LT Routine Laboratory Results WBC 7.55 K/ul (4.8-10.8) 03/18/23 08:12 RBC 3.25 M/uL (4.70-6.10) L 03/18/23 08:12 Hgb 9.8 g/dl (14.0-18.0) L 03/18/23 08:12 Hct 29.4 % (42.0-52.0) L 03/18/23 08:12 MCV 90.5 fL (80.0-100.0) 03/18/23 08:12 MCH 30.2 pg (25.0-34.0) 03/18/23 08:12 MCHC 33.3 g/dL (32.0-36.0) 03/18/23 08:12 RDW Std Deviation 45.4 fL (36.4-46.3) 03/18/23 08:12 RDW Coeff of Lalo 13.7 % (11.5-14.5) 03/18/23 08:12 Plt Count 437 K/uL (130-400) H 03/18/23 08:12 MPV 10.3 fL (9.4-12.4) 03/18/23 08:12 Immature Gran % (Auto) 0.6 % 03/07/23 05:56 Neut % (Auto) 77.2 % 03/07/23 05:56 Lymph % (Auto) 16.6 % 03/07/23 05:56 [place] % (Auto) 5.3 % 03/07/23 05:56 Eos % (Auto) 0.0 % 03/07/23 05:56 Baso % (Auto) 0.3 % 03/07/23 05:56 Neut # (Auto) 5.98 K/uL (1.40-6.50) 03/07/23 05:56 Lymph # (Auto) 1.29 K/uL (1.2-3.4) 03/07/23 05:56 [place] # (Auto) 0.41 K/uL (0.11-0.59) 03/07/23 05:56 Eos # (Auto) 0.00 K/uL (0-0.50) 03/07/23 05:56 Baso # (Auto) 0.02 K/uL (0-0.2) 03/07/23 05:56 Immature Gran # (Auto) 0.05 K/uL (0.01-0.20) 03/07/23 05:56 ESR 98 mm/hr (0-20) H 03/17/23 06:17 Sodium 131 mmol/L (136-145) L 03/18/23 08:12 Potassium 3.9 mmol/L (3.5-5.1) 03/18/23 08:12 Chloride 97 mmol/L (98-107) L 03/18/23 08:12 Carbon Dioxide 26 mmol/L (21-32) 03/18/23 08:12 Anion Gap 8 (3-11) 03/18/23 08:12 BUN 13 mg/dl (6-23) 03/18/23 08:12 Creatinine 0.69 mg/dl (0.6-1.4) 03/18/23 08:12 Est Cr Clr Drug Dosing 118.5 ml/min 03/18/23 08:12 Est GFR ( Amer) 120.4 ml/min 03/18/23 08:12 Est GFR (Non-Af Amer) 103.9 ml/min 03/18/23 08:12 BUN/Creatinine Ratio 18.8 (10-20) 03/18/23 08:12 Glucose 164 mg/dl (70-99(Fasting)) H 03/18/23 08:12 Estimat Average Glucose 131 mg/dl 03/06/23 19:30 Hemoglobin A1c 6.2 % (4.5-5.6) H 03/06/23 19:30 Lactate 1.2 mmol/L (0.4-2.0) 03/06/23 19:51 Calcium 8.5 mg/dl (8.6-10.3) L 03/18/23 08:12 Phosphorus 3.0 mg/dl (2.5-4.9) 03/16/23 05:52 Magnesium 1.9 mg/dl (1.7-2.4) 03/16/23 05:52 Total Bilirubin 0.6 mg/dl (0.2-1.0) 03/11/23 06:23 AST 28 U/L (13-39) 03/11/23 06:23 ALT 25 U/L (7-52) 03/11/23 06:23 Alkaline Phosphatase 66 U/L (34-104) 03/11/23 06:23 Total Creatine Kinase 73 U/L (30-223) 03/14/23 07:23 C-Reactive Protein 2.20 mg/dl (0-0.5) H 03/18/23 08:12 B-Natriuretic Peptide 127 pg/ml (0-100) H 03/07/23 11:12 Total Protein 6.2 gm/dl (6.0-8.3) 03/11/23 06:23 Albumin 3.2 gm/dl (3.4-5.0) L 03/11/23 06:23 Globulin 3.0 gm/dl (2.5-4.0) 03/11/23 06:23 Albumin/Globulin Ratio 1.1 (0.9-2) 03/11/23 06:23 Lipase 19 U/L (11-82) 03/06/23 19:24 25-OH Vitamin D Total 19.8 ng/ml (30-100) L 03/08/23 09:03 Procalcitonin 0.05 ng/ml (0-0.5) 03/17/23 06:17 TSH 1.428 uIu/ml (0.300-4.500) 03/06/23 19:30 Urine Color Yellow 03/06/23 19:25 Urine Appearance Clear (Clear) 03/06/23 19:25 Urine pH 6.5 (4.5-7.5) 03/06/23 19:25 Ur Specific Robert 1.026 (1.000-1.030) 03/06/23 19:25 Urine Protein 2+ (Negative) H 03/06/23 19:25 Urine Glucose (UA) Negative (Negative) 03/06/23 19:25 Urine Ketones Trace (Negative) H 03/06/23 19:25 Urine Blood 1+ (Negative) H 03/06/23 19:25 Urine Nitrite Negative (Negative) 03/06/23 19:25 Urine Bilirubin Negative (Negative) 03/06/23 19:25 Urine Urobilinogen Negative (Negative) 03/06/23 19:25 Ur Leukocyte Esterase Negative (Negative) 03/06/23 19:25 Urine WBC (Auto) 1-5 /hpf (0-5) 03/06/23 19:25 Urine RBC (Auto) 0-4 /hpf (0-4) 03/06/23 19:25 U Hyaline Cast (Auto) 1-5 /lpf (0-5) 03/06/23 19:25 U Epithel Cells (Auto) 20-30 /lpf (0-5) H 03/06/23 19:25 Urine Bacteria (Auto) Negative (Negative) 03/06/23 19:25 Stl C. diff Tox B Gene Negative Cdiff Gene (Neg) 03/14/23 10:30 Random Vancomycin 22.8 mcg/ml (10-20) H 03/13/23 05:26 Adenovirus (PCR) Not Detected (NotDetected) 03/06/23 19:00 Anaplasma Smear See Comment 03/16/23 12:36 A. phagocytophilum DNA Negative (Negative) 03/14/23 11:35 Babesia Smear See Comment 03/16/23 12:36 B. pertussis DNA (PCR) Not Detected (NotDetected) 03/06/23 19:00 B.parapertussis DNA PCR Not Detected (NotDetected) 03/06/23 19:00 Lyme Disease IgG Ab Negative (Negative) 03/16/23 12:36 Lyme Disease IgM Ab Negative (Negative) 03/16/23 12:36 C. pneumoniae DNA (PCR) Not Detected (NotDetected) 03/06/23 19:00 Coronavirus OC43 (PCR) Not Detected (NotDetected) 03/06/23 19:00 Coronavirus HKU1 (PCR) Not Detected (NotDetected) 03/06/23 19:00 Coronavirus 229E (PCR) Not Detected (NotDetected) 03/06/23 19:00 SARS-CoV-2 (PCR) Not Detected (NotDetected) 03/06/23 19:00 Coronavirus NL63 (PCR) Not Detected (NotDetected) 03/06/23 19:00 Hepatitis C Ab (EIA) NON-REACTIVE (NON-REACTIVE) 03/07/23 05:56 Hep C Ab Signal/Cutoff 0.05 (<1.00) 03/07/23 05:56 Human Metapneumovir PCR Not Detected (NotDetected) 03/06/23 19:00 Influenza Type A (PCR) Not Detected (NotDetected) 03/06/23 19:00 Influenza Type B (PCR) Not Detected (NotDetected) 03/06/23 19:00 M. pneumoniae (PCR) Not Detected (NotDetected) 03/06/23 19:00 Parainfluenza 1 (PCR) Not Detected (NotDetected) 03/06/23 19:00 Parainfluenza 2 (PCR) Not Detected (NotDetected) 03/06/23 19:00 Parainfluenza 3 (PCR) Not Detected (NotDetected) 03/06/23 19:00 Parainfluenza 4 (PCR) Not Detected (NotDetected) 03/06/23 19:00 RSV (PCR) Not Detected (NotDetected) 03/06/23 19:00 Entero/Rhino (PCR) Not Detected (NotDetected) 03/06/23 19:[address] 03/06/23 21:22 Exam(s): CT HEAD Without Contrast EXAM: CT Head Without Intravenous Contrast CLINICAL HISTORY: Reason for exam: villalobos. TECHNIQUE: Axial computed tomography images of the head/brain without intravenous contrast. CTDI is 35.15 mGy and DLP is 625.8 mGy-cm. Automated exposure control was utilized for the study. A dose lowering technique was utilized adhering to the principles of ALARA. COMPARISON: No relevant prior studies available. FINDINGS: Brain: No hemorrhage, extra-axial fluid collection, mass effect, or edema. Ventricles: Unremarkable. Bones/joints: Unremarkable. No fracture. Soft tissues: Unremarkable. Sinuses: No acute sinusitis. Mastoid air cells: Unremarkable as visualized. IMPRESSION: 1. No acute intracranial abnormality. Electronically signed by: Kenan Maria MD 03/06/23 23:[address] 03/06/23 21:28 Exam(s): CT EXTREMITY LEFT LOWER Without Contrast EXAM: CT Left Lower Extremity Without Intravenous Contrast CLINICAL HISTORY: Reason for exam: leg swelling. TECHNIQUE: Axial computed tomography images of the left lower extremity without intravenous contrast. CTDI is 15.6 mGy and DLP is 797.5 mGy-cm. Automated exposure control was utilized for the study. A dose lowering technique was utilized adhering to the principles of ALARA. COMPARISON: No relevant prior studies available. FINDINGS: Bones/joints: Bones are osteopenic. No acute fracture. No joint effusion at the ankle. No dislocation. Soft tissues: Subcutaneous soft tissue edema most pronounced in the distal lower extremity and at the level of the ankle. No soft tissue gas or abscess. IMPRESSION: 1. Subcutaneous soft tissue edema most pronounced in the distal lower extremity and at the level of the ankle. No soft tissue gas or abscess. 2. Bones are osteopenic for the patient's age. Consider DEXA. No acute fracture. Electronically signed by: Kenan Maria MD 03/06/23 23:27 PM Hand X-Ray 03/08/23 03:26 XR hand LT min 3V routine HISTORY: 57 years-old Male swelling acute pain and swelling of the left hand COMPARISON: None TECHNIQUE: 3 views of the left hand FINDINGS: Demineralized appearance of the bones. Scapholunate interval measures in the upper limits of normal at 3 mm. Osteoarthritis of the hand and wrist, moderate in the first carpometacarpal joint in otherwise predominantly mild. Ill-defined linear lucency is noted involving the distal neck of the fifth metacarpal. No acute displaced fracture or dislocation. IMPRESSION: 1. No acute displaced fracture or dislocation. 2. Questioned acute nondisplaced fracture of the fifth metacarpal. Correlate with point tenderness. ACT 112: Negative or not required by law. The above report was generated using voice recognition software. It may contain grammatical, syntax or spelling errors. Electronically signed by: Robert Murillo M.D. 03/08/2023 6:55 AM Chest X-Ray 03/14/23 09:09 XR chest 1V portable CLINICAL HISTORY: Resp symptoms. Reassess TECHNIQUE: Single frontal radiograph of the chest was obtained. Comparison: Comparison is made to chest radiograph 03/06/2023 FINDINGS: No lines and tubes are seen. The cardiomediastinal silhouette is normal. Prominence and cephalization of the vasculature is seen. No evidence of pleural effusion or pneumothorax. IMPRESSION: Mild pulmonary edema. ACT 112: Negative or not required by law. Electronically signed by: Grant Le M.D. 03/14/2023 9:44 AM Vascular Ultrasound 03/14/23 11:44 US extremity non-vascular ltd HISTORY: 57 years-old Male Rule out abscess on Left lower extremity acute pain and swelling of the left lower extremity COMPARISON: MRI 03/09/2023 TECHNIQUE: Multiple real-time sonographic images of the left lower cavity soft tissues were obtained assessing grayscale appearance and color flow FINDINGS: There is persistent marked subcutaneous edema with increased echogenicity of the subcutaneous fat and dermal thickening. No focal fluid collections. IMPRESSION: Persistent cellulitis without fluid collection to suggest abscess. ACT 112: Negative or not required by law. The above report was generated using voice recognition software. It may contain grammatical, syntax or spelling errors. Electronically signed by: Robert Murillo M.D. 03/14/2023 2:46 PM Lower Extremity MRI 03/18/23 08:24 Exam(s): MRI EXTREMITY W/WO Contrast IV Amt: 8.2cc gadavist EXAM: MR Left Lower Extremity Without and With Intravenous Contrast CLINICAL HISTORY: Reason for exam: persistent pain/cellulitis- look for complications. TECHNIQUE: Multiplanar magnetic resonance images of the left lower extremity without and with intravenous contrast. CONTRAST: Patient received 8.2cc gadavist of IV contrast COMPARISON: No relevant prior studies available. FINDINGS: Circumferential subcutaneous edema and skin thickening, consistent with cellulitis, which preferentially involves the anterior and medial aspects of the calf. Mild ulceration along the medial aspect of the calf. No fluid collection or abscess. No deep soft tissue infection. There is mild edema in the medial head of the gastrocnemius, which may be secondary to chronic eccentric overload. No MR evidence of osteomyelitis. Intact tibia and fibula. No periosteal edema. IMPRESSION: Circumferential subcutaneous edema and skin thickening, consistent with cellulitis, which preferentially involves the anterior and medial aspects of the calf. Mild ulceration along the medial aspect of the calf. Correlate with physical exam. No fluid collection or abscess. No deep soft tissue infection. No MR evidence of osteomyelitis. Electronically signed by: Go Bedoya MD 03/18/23 20:12 PM Venous Doppler Study 03/18/23 08:25 US venous doppler LE LT CLINICAL HISTORY: r/o DVT TECHNIQUE: Left lower extremity real-time compression venous ultrasound with Color Doppler imaging. Utilizing real-time ultrasonic imaging multiple real time high-resolution ultrasonic images with compression and noncompression maneuvers of the deep venous system in addition to color doppler imaging were performed from the common femoral vein through the proximal calf veins. COMPARISON: Comparison is made to a venous Doppler 03/07/2023 FINDINGS/IMPRESSION: Currently there is normal compressibility of the deep venous system from the common femoral vein through the proximal calf veins. Redemonstration of groin lymph nodes measuring up to 2.0 cm in short axis with preserved fatty nicole. ACT 112: Negative or not required by law. Electronically signed by: Grant Le M.D. 03/18/2023 9:49 AM Hospital Course (1) Sepsis: (2) Cellulitis: Plan 57-year-old male with PMH of COPD, GERD, chronic hyponatremia, chronic anemia [baseline hemoglobin 13], hypothyroidism, past tobacco/alcohol use presented to the ED 03/07 with complaint of 1 day history of achy left leg swelling with fever and chills. Patient reports ongoing cough for several weeks productive of minimal clear sputum; denies any sore throat. Patient reports having similar LLE episode in 2016. No tick bites per patient. He is being managed for the following: Sepsis POA: Resolved Fever, IN, RR elevated plus LLE cellulitis. Procalcitonin 0.44-->1.45-->0.82->0.05, lactic acid normal at presentation. CRP trending down LLE cellulitis-continues to improve on empiric antibiotics Denies any trauma, insect bites, excoriations Pt w/ c/o LE swelling for long time (years) Outpatient review of PCP office visit from 02/10/21 noted patient had had left leg edema for 6 months at the time BNP was 127 on presentation. Echo was obtained to rule out underlying heart failure, came back EF 60 to 65% with normal LV and RV size and function. Outpatient chart review 03/07 with dobutamine stress echo on 02/11/2014 with EF of 55 to 59% Admitting imagings: LLE Doppler: Negative for DVT. LLE CT: Subcutaneous soft tissue edema, osteopenia noted CT head and CXR: No acute finding Blood cultures negative. Surgery eval and recs appreciated LE MRI noted cellulitis. No abscess or OM. Mild edema within medial head of gastrocnemius which could be due to chronic eccentric overload. Given overlying subcut edema, myositis cannot be excluded US LLE 03/14 did not show any abscess Repeat US LE 03/18 with no DVT Repeat MRI 03/18 with cellulitis but no complications noted Tick borne illness negative so far Was on cefepime, vancomycin and flagyl On 03/15/23,prior hospitatalist discussed with ID Dr Quesada. ID recommended changing vanco to linezolid and getting repeat imaging which was done and did not show any complications Vancomycin stopped and Linezolid started with continuation of cefepime till 03/18. Flagyl discontinued 03/17. Cellulitis and edema continues to improve however still has pain on left leg Continue linezolid/cefadroxil for 1 more week and follow up with the PCP Acute renal failure: Resolved. Creatinine back to baseline of 0.6 Hyponatremia-chronic, mild, relatively stable. Recommend repeat BMP with the PCP in a week Osteopenia/Vitamin D deficiency: Noted in CT LLE; Vitamin D level is 19.8, continue vitamin D supplementation Patient aware to coordinate with PCP office for considering DEXA scan as an outpatient. Left hand distal one-third fifth metacarpal fracture: Questionable acute nondisplaced fracture of the fifth metacarpal. Patient's x-ray left hand was obtained 03/07 to 03/08 overnight due to concerns of left hand cellulitis due to patient complaining left hand pain. Ortho recs noted. No surgery needed Other chronic medical conditions: COPD, at baseline GERD: Continue with home PPI Past tobacco/alcohol abuse Prediabetes: A1c of 6.2, prediabetes. Pt to f/u w/ PCP for halfway follow up/management. Patient was requesting to be discharged as his IV antibiotic is done and he is getting everything orally. He states he will get more activities at home than here and he did not want to see ID again as he was not happy with the recent ID consultation. Discussed discharge plan and follow up with the PCP as well as when to return to the hospital. Total Time Total Time Spent Total Time Spent (In Minutes): 35 Discharge Plan Discharge Items Patient Disposition: Home - Self-Care Reason For Visit: SEPSIS Discharge Diagnosis: Sepsis with left leg cellulitis Activity: Resume your previous activity Non-emergency contact: Primary Care Provider Call non-emergency contact if: you have any medication questions, your symptoms worsen, your pain is not controlled and you have a fever Follow-up/Referrals: Laura Wang MD [Primary Care Provider] - Diet: Regular Addtl Attending Provider Instructions: Continue linezolid and cefadroxil twice daily for 1 more week for your cellulitis Recommend repeat blood work (BMP, CRP, ESR) in a week and follow with the family doctor. You might need a longer course or be seen by Infectious disease doctor again if the cellulitis does not resolve completely by then Take gabapentin twice a day for your leg pain. You can take tylenol as needed. Keep the legs elevated Continue physical therapy. Take Vit D pills once weekly for your low Vit D level and weak bones (osteopeni a) and follow up with family doctor for further work up like DEXA scan and additional medicines to strengthen your bone. Pending Studies at Discharge: No Stand-Alone Forms: My [facility] IMGuest, Smoking Cessation Medications and DC Order Prescriptions: New linezolid 600 mg Tablet 600 mg PO Q12H Qty: 14 0RF gabapentin 300 mg Capsule 300 mg PO BID Qty: 14 0RF ergocalciferol (vitamin D2) [Vitamin D2] 1,250 mcg (50,000 unit) capsule 50,000 unit PO .weekly Qty: 8 0RF Rx Instructions: take once a week cefadroxil 500 mg capsule 500 mg PO BID Qty: 14 0RF Continued omeprazole 40 mg capsule,delayed release(DR/EC) 40 mg PO DAILYBB Nuretin 500-100 mg Capsule 1 cap PO DAILY Discharge Orders: Discharge Order (Routine); Ordered 03/19/23 Ordered By: John Ferrer/Other Patient Handouts: Prediabetes, 5 Steps for Eating Healthier Admission Data Admit Date/Time: 03/06/23 23:52 Attending Provider: John Montilla Admit Provider: Scar Pina Primary Care Provider: Laura Wang Other Providers: Scar Pina ; Jose Hanson ; Pan Tse ; Macario Conn ; Brent Williamson ; Dioni Zarate I. ; Felipe Castillo II ; Marleni Cardona ; Shaun Mustafa ; Alexei Quesada ; Leif Rene ; [facility] Other Interventions: Discharge Summary Assessment (RN) Last Done: 03/19/23 10:19
[2023-03-21 15:48] LABS: Babesia microti DNA Not Detected (Not Detected)
== END 2023-03-19 11:05 | disposition home health service (06) | DRG 872 ==
LOC: ED 18:07 → SUATTDRO 23:52 → 2E 23:52 → 2W 03-08 17:46

== ENCOUNTER 2024-08-22 20:44 | Inpatient (IN) ==
[2024-08-22] MEDS ORDERED: VANCOMYCIN CONSULT ACTIVE PRN (22:28)
--- NOTE | 2024-08-22 22:31 | Emergency Department Note ---
History of Present Illness General Chief complaint: Leg Injury/Pain Stated complaint: LEG LEFT SWOLLEN, FOOT SWOLLEN, LEFT ARM PAIN Time Seen by Provider: 08/22/24 21:24 History of Present Illness Maximum Pain Intensity: 2 This 59-year-old male presents ER complaining of left lower leg pain and swelling with subjective fever and chills for the past day. He has had sepsis in this leg before. Patient denies chest pain, dyspnea, cough, congestion, abdominal pain, vomiting, diarrhea, trauma to the area. Home Medications Medication Instructions Recorded Confirmed Type emtricitabine 200 mg-tenofovir 1 tab PO DAILY 01/26/24 08/22/24 History alafenamide fumarate 25 mg tablet (Descovy) cholecalciferol (vitamin D3) 50 50 mcg PO DAILY 01/28/24 08/22/24 History mcg (2,000 unit) capsule (Vitamin D3) cyanocobalamin (vitamin B-12) 1,000 mcg PO DAILY 01/28/24 08/22/24 History 1,000 mcg tablet (Vitamin B-12) omeprazole 40 mg capsule,delayed 40 mg PO DAILY #90 caps 05/07/24 08/22/24 Rx release tamsulosin 0.4 mg capsule (Flomax) 0.4 mg PO DAILY #30 caps 05/07/24 08/22/24 Rx doxycycline hyclate 100 mg tablet 200 mg PO UD PRN Sexual Activity 08/22/24 08/22/24 History Allergies Allergy/AdvReac Type Severity Reaction Status Date / Time Iodinated Contrast Media Allergy Severe SEVERE Verified 05/07/24 13:15 HIVES propoxyphene AdvReac Intermediate N/V Verified 05/07/24 13:15 Past Med/Surg History Problem List (Updated 08/22/24 @ 23:58 by Brandie Le PA-C) Cellulitis of left lower leg (Acute) Gastroenteritis Cellulitis (Acute) Avascular necrosis of bone of left hip Degenerative joint disease of left hip Chronic back pain (Chronic Unknown) H/O alcohol abuse (Chronic Unknown) "in remission since 2012" BPH (benign prostatic hypertrophy) (Chronic) DJD (degenerative joint disease) (Chronic) Tobacco use disorder (Chronic) History of total right hip arthroplasty (Chronic) "for AVN, OA" H/O inguinal hernia repair (Chronic) H/O chest tube placement (Chronic) "1989 for pneumothorax" Atypical chest pain (Acute) Mid back pain (Acute) Surgical History (Updated 05/07/24 @ 13:18 by LASHELL Hirsch) Hx of bilateral hip replacements Family History (Updated 05/07/24 @ 13:19 by LASHELL Hirsch) Sister Colorectal cancer Diabetes Mother Diabetes Father Diabetes Brother Diabetes Denies family history of Ovarian cancer Prostate cancer Myocardial infarction Breast cancer Lung cancer Hypertension Stroke Social History (Updated 05/07/24 @ 13:20 by LASHELL Hirsch) Smoking Status: Never smoker Tobacco Type: Cigarettes Do You Dip or Chew Tobacco: No; Hx Alcohol Use: No Hx Substance Use: No Preferred Language: Japanese Communication Ability: Effective Visual Impairment: Limited Hearing Ability: Normal Sports Team Marketing Intern Required: No Beliefs That Will Affect Care: Spiritual marital status: Current Living Situation: Spouse Current Living Situation Comment: lives with current occupational status: disabled How many Children do You have: 0 Feels Safe at Home: Yes Childhood Exposure to Second-Hand Smoke: Yes caffeine: Yes Dental Care, Regularly: No Physical Activity Frequency: Does not Exercise Seatbelt Use: always Sunscreen Use: No Assistive Devices: Cane Review of Systems A total of 10 systems reviewed and were otherwise negative Physical Exam Vital Signs Vital Signs - 24 hr 08/22/24 20:51 08/22/24 21:12 08/22/24 21:13 Temperature 36.6 C Temperature Source Temporal Artery Scan Pulse Rate 98 H 84 Pulse Rate [Apical] 83 Respiratory Rate 16 20 Respiratory Effort / Characteristics Non-Labored Non-Labored Spontaneous Respiratory Depth Normal Normal Blood Pressure 135/79 Blood Pressure [Right Arm] 131/84 Blood Pressure Mean 97 Blood Pressure Mean [Right Arm] 99 Pulse Oximetry 96 96 Oxygen Delivery Method Room Air Room Air Sepsis Recent Fever Within 48 Hours No Sepsis New/Unexplained Change in Mental Status No Sepsis Action Taken by Nursing No Action Required 08/22/24 22:43 Temperature Temperature Source Pulse Rate Pulse Rate [Apical] Respiratory Rate Respiratory Effort / Characteristics Respiratory Depth Blood Pressure Blood Pressure [Right Arm] Blood Pressure Mean Blood Pressure Mean [Right Arm] Pulse Oximetry 95 Oxygen Delivery Method Room Air Sepsis Recent Fever Within 48 Hours Sepsis New/Unexplained Change in Mental Status Sepsis Action Taken by Nursing VITALS: Vitals are noted on the nurse's note and reviewed by myself. Vital signs stable. GENERAL: Pleasant gentleman, in no acute distress, nondiaphoretic, well- developed well-nourished. SKIN: Capillary reflex less than 2 seconds. HEENT: Normocephalic. PERRLA. EOMI. Nares patent. Mucous membranes moist. Neck is supple without nuchal rigidity. HEART: Regular rate and rhythm LUNGS: Clear to auscultation bilaterally without wheezes, rales or rhonchi. No retractions or accessory muscle use. ABDOMEN: Positive bowel sounds x 4. Normal tympanic percussion. Soft, nontender, without masses or organomegaly. Villar sign negative. No guarding or rebound tenderness. no CVA tenderness MUSCULOSKELETAL: No gross musculoskeletal defects. Left lower leg erythematous and edematous tender to palpation concerning for infection. Pedal pulses +2 equal and present bilaterally NEURO: Patient was alert and oriented to person place and time. No focal neurological deficits. Course Administered Medications Vancomycin HCl 1,750 mg/ (Sodium Chloride) 535 mls @ 200 mls/hr IV NOW ONE Stop: 08/23/24 01:08 Last Admin: 08/23/24 00:01 Dose: 200 mls/hr Documented By: Discontinued Medications Ceftriaxone Sodium (Rocephin) 2,000 mg in 50 mls @ 100 mls/hr IV NOW STA Stop: 08/22/24 22:57 Last Infusion: 08/22/24 23:52 Dose: Infused Documented By: Admin: 08/22/24 23:21 Dose: 100 mls/hr Documented By: Medical Decision Making Medical Records Attestation: I reviewed the patient's medical records. Home Medications Current Medication List: was personally reviewed by me Laboratory Data Attestation: I reviewed the patient's lab results. 08/22/24 22:39 08/22/24 22:39 Lab Results 08/22/24 08/22/24 Range/Units 22:39 23:47 WBC 6.26 (4.8-10.8) K/ul RBC 4.29 L (4.70-6.10) M/uL Hgb 12.9 L (14.0-18.0) g/dl Hct 39.3 L (42.0-52.0) % MCV 91.6 (80.0-100.0) fL MCH 30.1 (25.0-34.0) pg MCHC 32.8 (32.0-36.0) g/dL RDW Std Deviation 44.1 (36.4-46.3) fL RDW Coeff of Lalo 13.0 (11.5-14.5) % Plt Count 291 (130-400) K/uL MPV 10.5 (9.4-12.4) fL Immature Gran % (Auto) 0.3 % Neut % (Auto) 56.3 % Lymph % (Auto) 30.0 % [place] % (Auto) 8.1 % Eos % (Auto) 4.5 % Baso % (Auto) 0.8 % Neut # (Auto) 3.52 (1.40-6.50) K/uL Lymph # (Auto) 1.88 (1.20-3.40) K/uL [place] # (Auto) 0.51 (0.11-0.59) K/uL Eos # (Auto) 0.28 (0.00-0.50) K/uL Baso # (Auto) 0.05 (0.00-0.20) K/uL Immature Gran # (Auto) 0.02 (0.01-0.20) K/uL Sodium 139 (136-145) mmol/L Potassium 4.2 (3.5-5.1) mmol/L Chloride 103 (98-107) mmol/L Carbon Dioxide 29 (21-32) mmol/L Anion Gap 7 (3-11) BUN 24 H (6-23) mg/dl Creatinine 1.09 (0.6-1.4) mg/dl Est Cr Clr Drug Dosing 73.3 ml/min eGFR 77.22 BUN/Creatinine Ratio 22.0 H (10-20) Glucose 97 (70-99(Fasting)) mg/dl Lactate 0.8 (0.4-2.0) mmol/L Calcium 9.9 (8.6-10.3) mg/dl Magnesium 2.1 (1.7-2.4) mg/dl Total Bilirubin 0.4 (0.2-1.0) mg/dl Direct Bilirubin 0.0 (0-0.2) mg/dl AST 24 (13-39) U/L ALT 27 (7-52) U/L Alkaline Phosphatase 104 (34-104) U/L Total Creatine Kinase 295 H (30-223) U/L Troponin I High Sens 3.2 (0-20) pg/ml Total Protein 8.4 H (6.0-8.3) gm/dl Albumin 4.6 (3.4-5.0) gm/dl Procalcitonin < 0.02 (0-0.5) ng/ml Urine Color Yellow Urine Appearance Clear (Clear) Urine pH 7.0 (4.5-7.5) Ur Specific [place] 1.020 (1.000-1.030) Urine Protein Negative (Negative) Urine Glucose (UA) Negative (Negative) Urine Ketones Negative (Negative) Urine Blood Negative (Negative) Urine Nitrite Negative (Negative) Urine Bilirubin Negative (Negative) Urine Urobilinogen Negative (Negative) Ur Leukocyte Esterase Negative (Negative) Imaging Data Attestation: I personally reviewed and interpreted this imaging study as follows: Radiologist's Impression: Venous Doppler Study 08/22/24 21:07 Exam(s): US VENOUS LEFT LOWER EXTREMITY EXAM: US Duplex Left Lower Extremity Veins CLINICAL HISTORY: LLE swelling. TECHNIQUE: Real-time duplex ultrasound scan of the left lower extremity veins integrating B-mode two-dimensional vascular structure, Doppler spectral analysis, color flow Doppler imaging and compression. COMPARISON: No relevant prior studies available. FINDINGS: Deep veins: Unremarkable. No DVT in the visualized common femoral, femoral, proximal deep femoral or popliteal veins. The veins demonstrate normal color flow, are normally compressible, with normal phasic flow and/or augmentation response. The interrogated calf veins are patent. Superficial veins: Unremarkable. No thrombus in the saphenofemoral junction. Soft tissues: Subcutaneous edema noted involving the distal lateral left calf. No popliteal cyst. IMPRESSION: 1. No evidence for deep vein thrombosis involving the left lower extremity. 2. Subcutaneous edema noted involving the left calf. Electronically signed by: Danie Schuster MD 08/23/24 00:15 AM MDM Narrative Prior records reviewed and summarized as above. Triage Nursing notes reviewed. Additional history obtained from friend. The patient's history was concerning for swelling and redness of the skin. Differential diagnosis: Etiologies such as cellulitis, abscess, MRSA infection, DVT, necrotizing fasciitis, dermatitis, drug eruption, as well as others were entertained.. Physical examination: The physical examination was consistent with cellulitis ER treatment provided: Rocephin and vancomycin were ordered On reassessment the patient felt better. Diagnostics interpreted by me: The labs Independently Interpreted by myself revealed no worrisome leukocytosis, minimally elevated CPK. Negative procalcitonin Blood cultures pending Imaging studies: Tib-fib x-ray with no gas or fracture per my independent termination Ultrasound negative for DVT per my independent rotation Chest x-ray with no acute consolidation, pneumothorax or free air per my independent interpretation Consultation: A consultation was paced with the hospitalist. The case was discussed and diagnostics were reviewed. The patient was evaluated in the ER for further treatment. This appears to be isolated cellulitis. This is recurrent. Patient last time became septic when this leg was infected. Symptoms are rapid onset. Medicine was consulted case discussed. He will be evaluated for possible admission. By the evaluation outlined above emergent etiologies such as abscess, necrotizing fasciitis, DVT, as well as others were deemed relatively unlikely. The pt informed about the findings as listed above. All questions were answered and pleased with the treatment. The chart was completed utilizing [employer] Speech voice recognition software. Grammatical errors, random word insertions, pronoun errors, and incomplete sentences are an occassional consequence of this system due to software limitations, ambient noise, and hardware issues. Any formal questions or concerns about the content, text, or information contained within the body of this dictation should be directly addressed to the physician assistant professor of communication for clarification. Impression & Plan Cellulitis of left lower leg Discharge Plan Visit Data Chief Complaint: Leg Injury/Pain Stated Complaint: LEG LEFT SWOLLEN, FOOT SWOLLEN, LEFT ARM PAIN ED Provider: Diana Kaur ED Midlevel Provider: Brandie Le Discharge Problem: Cellulitis of left lower leg Patient Disposition: Being Evaluated by Hospitalist Condition: Good Forms Stand Alone Forms: My [facility] [employer] Software Prescriptions Prescriptions: No Action omeprazole 40 mg capsule,delayed release(DR/EC) 40 mg PO DAILY Qty: 90 3RF tamsulosin [Flomax] 0.4 mg capsule 0.4 mg PO DAILY Qty: 30 2RF Descovy 200-25 mg tablet 1 tab PO DAILY doxycycline hyclate 100 mg tablet 200 mg PO UD PRN (Reason: Sexual Activity) Rx Instructions: TAKE 2 TABLETS UP TO 72 HOURS AFTER SEX,DO NOT EXCEED MORE THAN 2 TABLETS IN 24 HOURS cyanocobalamin (vitamin B-12) [Vitamin B-12] 1,000 mcg Tablet 1,000 mcg PO DAILY cholecalciferol (vitamin D3) [Vitamin D3] 50 mcg (2,000 unit) Capsule 50 mcg PO DAILY Referrals Referrals: Mervin Hutchins CRNP [Primary Care Provider] -
[2024-08-22 22:58] LABS: Basophils # (auto) 0.05 K/uL (0.00-0.20); Basophils % (auto) 0.8 %; Eosinophils # (auto) 0.28 K/uL (0.00-0.50); Eosinophils % (auto) 4.5 %; Hematocrit (blood only) 39.3 % (42.0-52.0); Hemoglobin 12.9 g/dl (14.0-18.0); Immature Granulocytes # (auto) 0.02 K/uL (0.01-0.20); Immature Granulocytes % (auto) 0.3 %; Lymphocytes # (auto) 1.88 K/uL (1.20-3.40); Mean Corpuscular Hemoglobin 30.1 pg (25.0-34.0); Mean Corpuscular Hgb Conc 32.8 g/dL (32.0-36.0); Mean Corpuscular Volume 91.6 fL (80.0-100.0); Mean Platelet Volume 10.5 fL (9.4-12.4); Monocytes # (auto) 0.51 K/uL (0.11-0.59); Monocytes % (auto) 8.1 %; Neutrophils # (auto) 3.52 K/uL (1.40-6.50); Neutrophils % (auto) 56.3 %; Platelet Count 291 K/uL (130-400); RDW Standard Deviation 44.1 fL (36.4-46.3); Red Blood Count 4.29 M/uL (4.70-6.10); White Blood Count 6.26 K/ul (4.8-10.8)
[2024-08-22 23:15] LABS: Albumin Level 4.6 gm/dl (3.4-5.0); Bilirubin,Total 0.4 mg/dl (0.2-1.0); Calcium 9.9 mg/dl (8.6-10.3); Creatinine Clr Calc Pharmacy 73.3 ml/min; Magnesium 2.1 mg/dl (1.7-2.4); Potassium 4.2 mmol/L (3.5-5.1); Total Protein 8.4 gm/dl (6.0-8.3)
[2024-08-22 23:21] LABS: Troponin I High Sensitivity 3.2 pg/ml (0-20)
[2024-08-22] MEDS: cefTRIAXone SODIUM 2,000 MG/50 ML BAG IV STA (23:21)
[2024-08-22 23:55] LABS: Appearance Urine Clear (Clear); Bilirubin Urine Negative (Negative); Blood Urine Negative (Negative); Color Urine Yellow; Glucose Urine UA Negative (Negative); Ketones Urine Negative (Negative); Leukocyte Esterase Urine Negative (Negative); Nitrite Urine Negative (Negative); Protein Urine Negative (Negative); Urobilinogen Urine Negative (Negative)
[2024-08-23] MEDS: VANCOMYCIN HCL 1,750 MG in SODIUM CHLORIDE 0.9% 500 ML IV ONE (00:01)
--- NOTE | 2024-08-23 00:14 | History & Physical Report ---
Date of Service August 23, 2024 Assessment & Plan (1) Cellulitis of left lower leg: Plan: Progressive cellulitis over the last few hours. With rate of progression and history of severe sepsis, patient will be admitted. Started on broad abx including MRSA coverage. Patient does not currently meet SIRs criteria - hold off on aggressive fluid resuscitation for now. Patient has not had routine labs in some time. If diabetic may want to add pseudomonas coverage - ordered HbA1c, TSH, lipids. Adjust abx as indicated. continue vanc/CTX BCx pending, MRSA nares, f/u labs monitor outline of cellulitic area for progression wound culture if draining monitor on tele (2) History of sepsis: Plan: History of rapidly progressive cellulitis and severe sepsis. Patient treated with cephalosporin, MRSA coverage, and Flagyl. Negative blood cultures last admission. ID was consulted last visit as patient was slow to recover. With patient's severe sepsis history and current medication list (on Descovy for PrEP and doxy for PEP), there is higher chance for exposure to atypical pathogens. If patient not improving could consider HIV testing and/or ID consult. (3) Anemia: Plan: Normocytic. If persistently low despite improving clinical course could check - B12, folate, iron panel etc (4) Elevated CK: Plan: Very minimally elevated. No currently indication to trend. Encourage PO fluid resuscitation as there is an IVF shortage and patient HDS. Plan Exposure to bodily fluids: continue PrEP Osteopenia: on Vit D supplementation GERD: continue omeprazole BPH with LUTS: continue tamsulosin Code status: full DVT ppx: Lovenox SQ Q24H FENGI: regular Dispo: tele unit History of Present Illness Chief Complaint: leg pain Primary Care Provider: ASMITA Brooks 59 y/o male with a PMHx of GERD, BPH with LUTS, and severe sepsis d/t LLE cellulitis 03/2023 presents for evaluation of LLE swelling/pain. Patient noticed increased swelling of the LLE around 5 pm this evening. He noticed a bit of a lump under the skin as well which was concerning to him as it could be a blood clot. This prompted presentation to the ED. LLE was imaged with US doppler and XR. No signs of DVT or osteo. There was a soft tissue swelling in the area. As patient was in the ED he began to notice redness of the LLE as well. This is similar to the last time he was hospitalized for cellulitis. At that time he presented with fevers, chills, feeling unwell and his leg became swollen, red, hot, and painful while in the ED. He was admitted for IV abx for an extended period of time. Upon my interview, patient reports that the redness is increasing. He has tenderness in the leg as well. Patient denies any fevers, chills, n/v/abdominal pain, change in bowel/bladder habits, CP, SOB, or even generally feeling unwell. Allergies Allergy/AdvReac Type Severity Reaction Status Date / Time Iodinated Contrast Media Allergy Severe SEVERE Verified 05/07/24 13:15 HIVES propoxyphene AdvReac Intermediate N/V Verified 05/07/24 13:15 Home Medications Medication Instructions Recorded Confirmed Type emtricitabine 200 mg-tenofovir 1 tab PO DAILY 01/26/24 08/22/24 History alafenamide fumarate 25 mg tablet (Descovy) cholecalciferol (vitamin D3) 50 50 mcg PO DAILY 01/28/24 08/22/24 History mcg (2,000 unit) capsule (Vitamin D3) cyanocobalamin (vitamin B-12) 1,000 mcg PO DAILY 01/28/24 08/22/24 History 1,000 mcg tablet (Vitamin B-12) omeprazole 40 mg capsule,delayed 40 mg PO DAILY #90 caps 05/07/24 08/22/24 Rx release tamsulosin 0.4 mg capsule (Flomax) 0.4 mg PO DAILY #30 caps 05/07/24 08/22/24 Rx doxycycline hyclate 100 mg tablet 200 mg PO UD PRN Sexual Activity 08/22/24 08/22/24 History Past Med/Surg History Problem List (Updated 08/23/24 @ 02:17 by Tamiko Cleaning MD) Elevated CK Anemia History of sepsis Enlarged prostate with lower urinary tract symptoms (LUTS) Cellulitis of left lower leg (Acute) Gastroenteritis Cellulitis (Acute) Avascular necrosis of bone of left hip Degenerative joint disease of left hip Chronic back pain (Chronic Unknown) H/O alcohol abuse (Chronic Unknown) "in remission since 2012" BPH (benign prostatic hypertrophy) (Chronic) DJD (degenerative joint disease) (Chronic) Tobacco use disorder (Chronic) History of total right hip arthroplasty (Chronic) "for AVN, OA" H/O inguinal hernia repair (Chronic) H/O chest tube placement (Chronic) "1989 for pneumothorax" Atypical chest pain (Acute) Mid back pain (Acute) Surgical History (Updated 05/07/24 @ 13:18 by LASHELL Hirsch) Hx of bilateral hip replacements Family History (Updated 05/07/24 @ 13:19 by LASHELL Hirsch) Sister Colorectal cancer Diabetes Mother Diabetes Father Diabetes Brother Diabetes Denies family history of Ovarian cancer Prostate cancer Myocardial infarction Breast cancer Lung cancer Hypertension Stroke Social History (Updated 05/07/24 @ 13:20 by LASHELL Hirsch) Smoking Status: Never smoker Tobacco Type: Cigarettes Do You Dip or Chew Tobacco: No; Hx Alcohol Use: No Hx Substance Use: No Preferred Language: Tristanian Communication Ability: Effective Visual Impairment: Limited Hearing Ability: Normal Supervisor Powdered Metal Required: No Beliefs That Will Affect Care: None marital status: Current Living Situation: Spouse Current Living Situation Comment: lives with current occupational status: disabled How many Children do You have: 0 Other Information That Helps Us Care for You: No Feels Safe at Home: Yes Safety Concerns: Feels Safe At This Time Childhood Exposure to Second-Hand Smoke: Yes caffeine: Yes Dental Care, Regularly: No Physical Activity Frequency: Does not Exercise Seatbelt Use: always Sunscreen Use: No Assistive Devices: Cane Physical Exam 2 Physical Exam: Gen: non-toxic appearing patient in NAD HEENT: AT NC MMM Resp: CTAB no wheezing no increased work of breathing CV: RRR no m/r/g clinically well perfused Abd: non-distended MSK: no obvious deformities Skin: fungal infection multiple fingernails, LLE: tenderness, erythema, edema, and warmth, outlined with skin marker - no sharp demarcations, no openings in the skin or drainage from the area, no crepitus appreciated Neuro: alert and oriented Psych: appropriate mood and affect Results & Data Results & Data Vital Signs (Past 12 Hours) Vital Signs Temp Pulse Pulse Resp BP BP Pulse Ox 08/22/24 22:43 95 08/22/24 21:13 83 20 131/84 96 08/22/24 21:12 84 08/22/24 20:51 36.6 C 98 H 16 135/79 96 O2 Del Method 08/22/24 22:43 Room Air 08/22/24 21:13 Room Air 08/22/24 21:12 08/22/24 20:51 Room Air Laboratory Results 08/22/24 22:39 08/22/24 22:39 Diagnostic Findings Venous Doppler Study 08/22/24 21:07 FINDINGS: Deep veins: Unremarkable. No DVT in the visualized common femoral, femoral, proximal deep femoral or popliteal veins. The veins demonstrate normal color flow, are normally compressible, with normal phasic flow and/or augmentation response. The interrogated calf veins are patent. Superficial veins: Unremarkable. No thrombus in the saphenofemoral junction. Soft tissues: Subcutaneous edema noted involving the distal lateral left calf. No popliteal cyst. IMPRESSION: 1. No evidence for deep vein thrombosis involving the left lower extremity. 2. Subcutaneous edema noted involving the left calf. Chest X-Ray 08/22/24 22:26 FINDINGS: Lungs: No focal consolidation. The pulmonary vasculature demonstrates no significant radiographic abnormality. Pleural space: Unremarkable. No pneumothorax. No large pleural effusion. Heart: Unremarkable. No cardiomegaly. Mediastinum: No significant abnormality identified. The trachea is midline. Bones/joints: Unremarkable. No acute fracture. IMPRESSION: No focal consolidation or acute cardiopulmonary process identified. Tibia/Fibula X-Ray 08/22/24 22:29 FINDINGS: Bones/joints: The tibia and fibular are intact. No acute osseous traumatic injury. No evidence for cortical destruction or periosteal reaction. No dislocation. Soft tissues: Subcutaneous fat stranding noted throughout the calf and ankle with soft tissue swelling distally. No tracking subcutaneous emphysema. No radiopaque foreign body. Scattered punctate subcentimeter calcific densities along the medial aspect of the mid to distal calf. IMPRESSION: Subcutaneous fat stranding noted throughout the calf and ankle with soft tissue swelling distally. No tracking subcutaneous emphysema. No acute osseous abnormality or radiographic evidence to suggest osteomyelitis. Supervising Physician Co-Signing Physician Notes Attending addendum: I have physically seen this patient, have supervised the medical residents activities, and agree with the H&P unless as otherwise noted. Assessment and Plan: Left lower extremity cellulitis/history of severe sepsis- Infection is relatively rapidly progressive over the past few hours, in an immunocompromised patient on Descovy Continue vancomycin IV and ceftriaxone IV begun in the ED Follow-up blood cultures Follow serial CBC with differential, chemistry profile and magnesium level History of sepsis- History of severe sepsis due to similar infection in the past Follow all cultures as noted BPH with LUTS- Continue tamsulosin, Follow urine culture and sensitivity Anemia- May be of chronic disease Check B12, folate, iron studies as noted Resident Activity Tracking Resident Involvement: Resident Care Provided Care Provided: [facility]
--- NOTE | 2024-08-23 00:16 | Ultrasound Report ---
Exam(s): US VENOUS LEFT LOWER EXTREMITY EXAM: US Duplex Left Lower Extremity Veins CLINICAL HISTORY: LLE swelling. TECHNIQUE: Real-time duplex ultrasound scan of the left lower extremity veins integrating B-mode two-dimensional vascular structure, Doppler spectral analysis, color flow Doppler imaging and compression. COMPARISON: No relevant prior studies available. FINDINGS: Deep veins: Unremarkable. No DVT in the visualized common femoral, femoral, proximal deep femoral or popliteal veins. The veins demonstrate normal color flow, are normally compressible, with normal phasic flow and/or augmentation response. The interrogated calf veins are patent. Superficial veins: Unremarkable. No thrombus in the saphenofemoral junction. Soft tissues: Subcutaneous edema noted involving the distal lateral left calf. No popliteal cyst. IMPRESSION: 1. No evidence for deep vein thrombosis involving the left lower extremity. 2. Subcutaneous edema noted involving the left calf. Electronically signed by: Danie Schuster MD 08/23/24 00:15 AM
--- NOTE | 2024-08-23 00:42 | XRay Report ---
Exam(s): XR CXR 1 VIEW EXAM: XR Chest, 1 View CLINICAL HISTORY: Sepsis. TECHNIQUE: Frontal view of the chest. COMPARISON: No relevant prior studies available. FINDINGS: Lungs: No focal consolidation. The pulmonary vasculature demonstrates no significant radiographic abnormality. Pleural space: Unremarkable. No pneumothorax. No large pleural effusion. Heart: Unremarkable. No cardiomegaly. Mediastinum: No significant abnormality identified. The trachea is midline. Bones/joints: Unremarkable. No acute fracture. IMPRESSION: No focal consolidation or acute cardiopulmonary process identified. Electronically signed by: Danie Schuster MD 08/23/24 00:41 AM
--- NOTE | 2024-08-23 00:45 | XRay Report ---
Exam(s): XR LEFT TIB/FIB, 2 views EXAM: XR Left Tibia and Fibula, 2 Views CLINICAL HISTORY: infx. TECHNIQUE: Frontal and lateral views of the left tibia and fibula. COMPARISON: No relevant prior studies available. FINDINGS: Bones/joints: The tibia and fibular are intact. No acute osseous traumatic injury. No evidence for cortical destruction or periosteal reaction. No dislocation. Soft tissues: Subcutaneous fat stranding noted throughout the calf and ankle with soft tissue swelling distally. No tracking subcutaneous emphysema. No radiopaque foreign body. Scattered punctate subcentimeter calcific densities along the medial aspect of the mid to distal calf. IMPRESSION: Subcutaneous fat stranding noted throughout the calf and ankle with soft tissue swelling distally. No tracking subcutaneous emphysema. No acute osseous abnormality or radiographic evidence to suggest osteomyelitis. Electronically signed by: Danie Schuster MD 08/23/24 00:44 AM
[2024-08-23] MEDS ORDERED: VANCOMYCIN CONSULT ACTIVE PRN (02:58)
[2024-08-23] MEDS ORDERED: POLYETHYLENE (MIRALAX) 17 GM PACK PO PRN (02:58)
[2024-08-23] MEDS ORDERED: ONDANSETRON INJ 2 MG/ML 2 ML VIAL IV PRN (02:58)
[2024-08-23] MEDS ORDERED: MELATONIN 3 MG TAB PO PRN (02:58)
--- NOTE | 2024-08-23 04:39 | Billing Data ---
Date of Service August 23, 2024 Coding Level of Care Code 03462 INT INP/OBS CARE
[2024-08-23 06:20] LABS: Albumin Globulin Ratio 1.3 (0.9-2); Albumin Level 3.9 gm/dl (3.4-5.0); BUN Creatinine Ratio 23.9 (10-20); Bilirubin,Total 0.3 mg/dl (0.2-1.0); Calcium 8.9 mg/dl (8.6-10.3); Chol HDL Ratio 3.5 (0-5); Creatinine Clr Calc Pharmacy 86.9 ml/min; Potassium 3.9 mmol/L (3.5-5.1); Total Protein 6.9 gm/dl (6.0-8.3)
[2024-08-23 06:27] LABS: Basophils # (auto) 0.07 K/uL (0.00-0.20); Basophils % (auto) 1.3 %; Eosinophils # (auto) 0.26 K/uL (0.00-0.50); Eosinophils % (auto) 4.7 %; Hematocrit (blood only) 34.6 % (42.0-52.0); Hemoglobin 11.6 g/dl (14.0-18.0); Immature Granulocytes # (auto) 0.02 K/uL (0.01-0.20); Immature Granulocytes % (auto) 0.4 %; Lymphocytes # (auto) 2.04 K/uL (1.20-3.40); Lymphocytes % (auto) 36.8 %; Mean Corpuscular Hemoglobin 30.4 pg (25.0-34.0); Mean Corpuscular Hgb Conc 33.5 g/dL (32.0-36.0); Mean Corpuscular Volume 90.8 fL (80.0-100.0); Mean Platelet Volume 10.4 fL (9.4-12.4); Monocytes # (auto) 0.69 K/uL (0.11-0.59); Monocytes % (auto) 12.4 %; Neutrophils # (auto) 2.47 K/uL (1.40-6.50); Neutrophils % (auto) 44.4 %; Platelet Count 243 K/uL (130-400); RDW Coefficient of Variation 12.9 % (11.5-14.5); RDW Standard Deviation 43.2 fL (36.4-46.3); Red Blood Count 3.81 M/uL (4.70-6.10); White Blood Count 5.55 K/ul (4.8-10.8)
[2024-08-23 06:34] LABS: Thyroid Stimulating Hormone 3.053 uIu/ml (0.300-4.500)
[2024-08-23 07:10] LABS: Estimated Average Glucose 140 mg/dl; Hemoglobin A1C 6.5 % (4.5-5.6)
[2024-08-23] MEDS: ACETAMINOPHEN 325 MG TAB PO PRN (07:19)
[2024-08-23] MEDS ORDERED: VANCOMYCIN HCL 1,000 MG in SODIUM CHLORIDE 0.9% 250 ML IV SCH (08:00)
[2024-08-23] MEDS: VANCOMYCIN HCL 1,000 MG in DEXTROSE 5% 250 ML IV SCH (08:10)
[2024-08-23] MEDS: PANTOprazole 40 MG TAB PO SCH (08:10)
[2024-08-23] MEDS: TAMSULOSIN HCL 0.4 MG CAP PO SCH (08:10)
[2024-08-23] MEDS: ENOXAPARIN INJ 40 MG/0.4 ML SYR SQ SCH (08:11)
[2024-08-23] MEDS: CYANOCOBALAMIN (B-12) 500 MCG TABLET PO SCH (09:40)
[2024-08-23] MEDS: CHOLECALCIFEROL 25 MCG (1000 UNITS) TAB PO SCH (10:06)
--- NOTE | 2024-08-23 10:46 | Pharmacy Report ---
Pharmacy PK ABX Note - Date of Service August 23, 2024 - Assessment and Plan Assessment * 59 year old M receiving VANCOMYCIN + CEFTRIAXONE for treatment of L lower extremity cellulitis. * Patient does have prior h/o severe sepsis and rapidly progressive cellulitis * Pertinent microbiologic data includes: negative MRSA Nasal Swab, BLCXs pending * Day # 1 of antimicrobial therapy. Plan Vancomycin * Loading dose: 1750 mg IV x 1 * Maintenance dose: 1000 mg IV every 12 hours * Regimen is predicted to achieve target AUC/YENY of 400-600 mg/L.hr * Level ordered for: 08/24 Pharmacy will continue to follow and will adjust dose/frequency as necessary. Thank you. Pharmacy has transitioned to AUC monitoring for vancomycin. AUC/YENY is the preferred PK/PD target and is associated with decreased risk of nephrotoxicity compared to traditional trough targets.
[2024-08-23] MEDS ORDERED: GLUCOSE 40% GEL 15 GM TUBE PO PRN (17:31)
[2024-08-23] MEDS ORDERED: GLUCOSE 10 TAB/TUBE PO PRN (17:31)
[2024-08-23] MEDS ORDERED: GLUCAGON FOR INJ 1 MG VIAL SQ PRN (17:31)
[2024-08-23] MEDS ORDERED: CARBOHYDRATES FOR HYPOGLYCEMIA PO PRN (17:31)
[2024-08-23] MEDS ORDERED: ALBUTEROL HFA 8 GM INHALER INH PRN (17:31)
[2024-08-23] MEDS ORDERED: DEXTROSE 50% 50 ML SYRINGE IV PRN (17:31)
--- NOTE | 2024-08-23 17:38 | History & Physical Bridge Note ---
Date of Service August 23, 2024 History & Physical Bridge Note I have examined the patient, reviewed the History & Physical and in the interval since the performance of the History & Physical I have noted the following changes of clinical significance: Pt with fairly significant pain and edema left leg that came on fairly acutely but no fevers/chills, no leukocytosis, Procal normal, only very minimal erythema possibly from venous stasis. No abd pains. Has chronic SOB but nothing acute. Denies CP. No personal or FH of VTE. Does have a remote IV contrast allergy 40 years ago with hives, no anaphylaxis. H eis agreeable to pretreatment to get CTV abd/pel to assess for DVT Pt is on PreP Tx for HIV and gets HIV testing q3 months through telehealth ID and has always tested negative Vitals reviewed NAD, AAOx3 RRR no mgr Lungs with mild bilat exp wheezes Abd +BS soft NT ND Ext: LLE 2+ pitting edema from foot up to knee, 2+ DP pulse, only very minimal erythema present distal leg, no open wounds; RLE normal 59 yo male here with LLE edema and pain. I am not convinced this is a cellulitis. He has no real signs or symptoms of infection. Doppler venous LLE neg but would like to assess for pelvic DVT With IV contrast allergy remotely, feel comfortable ordering CT venogram abd/pel with pretreatment with po prednisone and benadryl. In meantime, increase Lovenox to therapeutic dosing. He has no bleeding issues Continue abx as ordered on admission for now Ordered albuterol inhaler for prn use for wheezing-for COPD Also HgbA1C now shows DMII at 6.5%. Discussed with pt and he is agreeable to starting metformin on discharge. Will consult CDE for teaching. He admits to a diet of "chocolate and potato chips." Will start glucose checks and SSI in case of hyperglycemia with steroids for pretreatent
[2024-08-23] MEDS: ALBUTEROL HFA 8 GM INHALER INH ONE (17:50)
[2024-08-23] MEDS: predniSONE 50 MG TAB PO SCH (18:52)
[2024-08-23] MEDS ORDERED: ENOXAPARIN 1 MG/KG SQ SCH (21:00)
[2024-08-23] MEDS: INSULIN ASPART PER UNIT CHARGE SC SCH (21:24)
[2024-08-23] MEDS: ENOXAPARIN 80 MG/0.8 ML SYR SQ SCH (21:24)
[2024-08-23] MEDS: cefTRIAXone SODIUM 2,000 MG/50 ML BAG IV SCH (23:06)
[2024-08-24] MEDS: diphenhydrAMINE Capsule 25 MG CAP PO ONE (05:41)
--- NOTE | 2024-08-24 05:55 | Electrocardiogram Report ---
Test Reason : Blood Pressure : */* mmHG Vent. Rate : 77 BPM Atrial Rate : 77 BPM P-R Int : 150 ms QRS Dur : 86 ms QT Int : 356 ms P-R-T Axes : 49 83 63 degrees QTcB Int : 402 ms Normal sinus rhythm Normal ECG When compared with ECG of 20-Sep-2023 19:01, No significant change was found Confirmed by Matthew Roberts ([id number]) on 08/24/2024 5:55:42 AM Referred By: REFERRED SELF Confirmed By: Matthew Roberts
[2024-08-24 06:44] LABS: Hematocrit (blood only) 37.1 % (42.0-52.0); Hemoglobin 12.5 g/dl (14.0-18.0); Immature Granulocytes # (auto) 0.01 K/uL (0.01-0.20); Immature Granulocytes % (auto) 0.2 %; Lymphocytes # (auto) 0.86 K/uL (1.20-3.40); Lymphocytes % (auto) 13.6 %; Mean Corpuscular Hemoglobin 30.1 pg (25.0-34.0); Mean Corpuscular Hgb Conc 33.7 g/dL (32.0-36.0); Mean Corpuscular Volume 89.4 fL (80.0-100.0); Mean Platelet Volume 10.3 fL (9.4-12.4); Monocytes # (auto) 0.07 K/uL (0.11-0.59); Monocytes % (auto) 1.1 %; Neutrophils # (auto) 5.38 K/uL (1.40-6.50); Neutrophils % (auto) 85.1 %; Platelet Count 284 K/uL (130-400); RDW Coefficient of Variation 12.6 % (11.5-14.5); RDW Standard Deviation 41.6 fL (36.4-46.3); Red Blood Count 4.15 M/uL (4.70-6.10); White Blood Count 6.32 K/ul (4.8-10.8)
[2024-08-24 07:04] LABS: C Reactive Protein 0.69 mg/dl (0-0.5); Calcium 9.6 mg/dl (8.6-10.3); Creatinine Clr Calc Pharmacy 97.7 ml/min
[2024-08-24] MEDS: OPTIRAY 320 100ml IV ONE (07:46)
--- NOTE | 2024-08-24 08:22 | CT Scan Report ---
CT VENOGRAPHY OF THE ABDOMEN AND PELVIS CLINICAL HISTORY: Left lower extremity edema,pain,r/o pelvic DVT COMPARISON STUDY: CT of the abdomen and pelvis January 08, 2024. TECHNIQUE: Axial images of the abdomen and pelvis were obtained during venous phase following intrave nous injection of 94 cc of Optiray 320 IV. Patient was premedicated for IV dye allergy. Automated exp osure control was utilized for the study. A dose lowering technique was utilized adhering to the jana stefano of KATIE. FINDINGS: No pneumatosis, free air or portal venous gas is present. There is no biliary or pancreatic ductal dilatation. A tiny hypodense lateral segment hepatic lesion is likely benign. Spleen, adrenal glands, kidneys and pancreas are unremarkable. There is no hydronephrosis. There are no urinary calc jasmin. The caliber and wall thickness of small and large bowel are normal. The IVC is patent. The bilat eral common iliac, internal iliac, external iliac and common femoral veins are patent. Moderate aorto iliac atherosclerotic plaque. Images of the pelvis are degraded by streak artifact from bilateral hip arthroplasties., No venous thrombus is identified within the abdomen or pelvis. No fluid collections are present. There is no mass. Prominent left inguinal lymph nodes are similar to prior CT. No retro peritoneal fluid collections are present. There are no fractures within the lumbar spine, pelvis or h ips. IMPRESSION: 1. No venous thrombus within the abdomen or pelvis. Patent IVC and iliac veins. 2. No acute process within the abdomen or pelvis. 3. No mass within the abdomen or pelvis. ACT 112: Negative or not required by law. Electronically signed by: Tino Castro M.D. 08/24/2024 8:20 AM
--- NOTE | 2024-08-24 11:36 | Pharmacy Report ---
Pharmacy PK ABX Note - Date of Service August 24, 2024 - Assessment and Plan Assessment 08/24 * Random vancomycin level this AM was ~10 mcg/ml - dosing associated with AUC/YENY <400 - therefore will increase to 1250 mg iv q 12 hours. Prelim bc no growth, procal neg, afebrile, no leukocytosis. Potential deescalation to PO option likely reasonable if improving/and or dc if infection ruled - will follow 08/23 * 59 year old M receiving VANCOMYCIN + CEFTRIAXONE for treatment of L lower extremity cellulitis. * Patient does have prior h/o severe sepsis and rapidly progressive cellulitis * Pertinent microbiologic data includes: negative MRSA Nasal Swab, BLCXs pending * Day # 1 of antimicrobial therapy. Plan Vancomycin * Increase to vancomycin 1250 mg iv q 12 hours * Will order another random vancomycin level in next 2-3 days if continued Pharmacy will continue to follow and will adjust dose/frequency as necessary. Thank you. Pharmacy has transitioned to AUC monitoring for vancomycin. AUC/YENY is the preferred PK/PD target and is associated with decreased risk of nephrotoxicity compared to traditional trough targets.
[2024-08-24] MEDS: VANCOMYCIN HCL 1,250 MG in SODIUM CHLORIDE 0.9% 250 ML IV SCH (17:23)
--- NOTE | 2024-08-24 17:45 | Hospitalist Progress Note ---
Date of Service August 24, 2024 Assessment & Plan (1) Cellulitis of left lower leg: Plan: Pt here with left leg pain, swelling, and mild erythema/cellulitis No fevers/chills, no leukocytosis, Procal normal, CRP only minimally elevated, only very minimal erythema LLE Doppler neg for DVT CT venogram abd/pel neg for pelvic DVT, but with some prominent left inguinal FRANCES (could be reactive to infection)---> no DVT so decrease Lovenox back to 40mg once daily has a h/o severe sepsis from LLE cellulitis in 2022 but probably just started treatment here early so doing well Pt is on PreP Tx for HIV and gets HIV testing q3 months through telehealth ID and has always tested negative His left leg swelling is fairly significant though--> elevate extremity Continue Vanc and ceftriaxone and then switch to po abx tomorrow for discharge if still doing well Consider venous reflux testing for LLE with vascular Med as an outpt (2) Elevated CK: Plan: Very minimally elevated. Unclear reason and has been high in the past Check CK in AM, check aldolase. Unclear etiology and may be related to LLE edema? (3) Diabetes mellitus: Plan: HgbA1C now shows DMII at 6.5%. Discussed with pt and he is agreeable to starting metformin on discharge. Will consult CDE for teaching. He admits to a diet of "chocolate and potato chips." Continue glucose checks and SSI (4) Anemia: Plan: Mild, Normocytic f/u with PCP (5) COPD (chronic obstructive pulmonary disease): Plan: Occasional wheezing here albuterol prn Plan Chronic Medical Prblems: Osteopenia: on Vit D supplementation GERD: continue PPI BPH with LUTS: continue tamsulosin DVT ppx: Lovenox SQ Q24H Dispo: continued stay, downgrade to med/surg, likely dc to home tomorrow Admission and Anticipated Discharge Date Admission Date: August 23, 2024 Subjective Pt reports ongoing pain and swelling in left leg. Wants to shower and walk the halls. No diarrhea but having soft stools Tele with NSR some occasional ST 110s Physical Exam Constitutional: WD/WN, vitals as above Respiratory: normal respiratory effort, lungs clear to auscultation Cardiovascular: Rate/Rhythm: regular rate and regular rhythm Heart Sounds: no murmur Extremities: + edema (LLE 3+ pitting edema to prox leg) Psychiatric: A+Ox3, euthymic affect Results & Data Results & Data Vital Signs (Past 12 Hours) Vital Signs Temp Pulse Pulse Resp BP Pulse Ox O2 Del Method 08/24/24 15:05 36.7 C 111 H 17 109/63 96 Room Air 08/24/24 14:46 103 H 08/24/24 11:38 36.5 C 114 H 17 114/64 98 Room Air 08/24/24 08:27 36.4 C L 103 H 17 143/87 H 95 Room Air 08/24/24 07:30 Room Air 08/24/24 07:22 100 H Laboratory Results CBC, BMP reviewed PG Care Time/CCT Total # of Minutes Spent Total Time Spent with Patient: Total time spent is greater than 50% in coordination of care (as documented) at patient's floor/unit and/or counseling patient: Coding Level of Care Code 88945 SUB INP/OBS CARE 2/35MIN Diagnoses Cellulitis of left lower leg L03.116 Elevated CK R74.8 Diabetes mellitus E11.9 Anemia D64.9 COPD (chronic obstructive pulmonary disease) J44.9
[2024-08-24] MEDS ORDERED: VANCOMYCIN HCL 1,000 MG/270 ML BAG IV SCH (20:00)
[2024-08-25 07:04] VITALS: BP 126/69; PULSE 82; RESP 16; TEMP 97.5; O2SAT 95
[2024-08-25 07:43] LABS: Albumin Globulin Ratio 1.3 (0.9-2); Albumin Level 3.9 gm/dl (3.4-5.0); BUN Creatinine Ratio 24.2 (10-20); Bilirubin,Total 0.3 mg/dl (0.2-1.0); Calcium 9.2 mg/dl (8.6-10.3); Creatinine Clr Calc Pharmacy 83.8 ml/min; Potassium 3.6 mmol/L (3.5-5.1); Total Protein 6.9 gm/dl (6.0-8.3)
[2024-08-25] MEDS: ENOXAPARIN INJ 40 MG/0.4 ML SYR SQ SCH (08:35)
--- NOTE | 2024-08-25 14:23 | Discharge Summary ---
Discharge Summary Date of Service August 25, 2024 Principal Dx & Hospital Course #1 = Principal Diagnosis (1) Cellulitis of left lower leg: Pt here with left leg pain, swelling, and mild erythema/cellulitis No fevers/chills, no leukocytosis, Procal normal, CRP only minimally elevated, only very minimal erythema Left leg edema is 3+ to the knee LLE Doppler neg for DVT CT venogram abd/pel neg for pelvic DVT, but with some prominent left inguinal FRANCES (could be reactive to infection) has a h/o severe sepsis from LLE cellulitis in 2022 but probably just started treatment here early so doing well Pt is on PreP Tx for HIV and gets HIV testing q3 months through telehealth ID and has always tested negative His left leg swelling is improving but still present and only very mild erythema prior to discharge--> continue to elevate extremity Received Vanc and ceftriaxone x 4 days and then switch to po Augmentin and doxy for discharge too complete a 10 day course I am still not entirely convinced this was all from an infection. Given the asymmetric edema--> Consider venous reflux testing for LLE with vascular Med as an outpt. Discussed with the patient (2) Elevated CK: Very minimally elevated. Unclear reason and has been high in the past Unclear etiology and may be related to LLE edema or from infectious myositis? Repeat CK back to normal prior to discharge (3) Diabetes mellitus: HgbA1C now shows DMII at 6.5%. Discussed with pt and he is agreeable to starting metformin on discharge. Will consult CDE for teaching. He admits to a diet of "chocolate and potato chips." Advised dietary changes He does not have a prescription drug plan coverage so can only afford meds that are cheap f/u with PCP (4) Anemia: Mild, Normocytic f/u with PCP (5) COPD (chronic obstructive pulmonary disease): Occasional wheezing here albuterol prn was given and resolved Plan Chronic Medical Prblems: Osteopenia: on Vit D supplementation GERD: continue PPI-refilled Rx for him on discharge BPH with LUTS: was on tamsulosin at home but can no longer afford it so is not taking DVT ppx: Lovenox SQ Q24H Dispo: stable for dc to home Notes For Next Care Provider Needs close follow up for leg cellulitis and edema-consider Vascular medicine vein consult as outpt Needs close follow up on new onset DMII Medication Changes From Visit Added Augmentin and doxy bid x 6 more days added metformin ER 1000mg po daily Admission HPI Per Admitting Provider 59 y/o male with a PMHx of GERD, BPH with LUTS, and severe sepsis d/t LLE cellulitis 03/2023 presents for evaluation of LLE swelling/pain. Patient noticed increased swelling of the LLE around 5 pm this evening. He noticed a bit of a lump under the skin as well which was concerning to him as it could be a blood clot. This prompted presentation to the ED. LLE was imaged with US doppler and XR. No signs of DVT or osteo. There was a soft tissue swelling in the area. As patient was in the ED he began to notice redness of the LLE as well. This is similar to the last time he was hospitalized for cellulitis. At that time he presented with fevers, chills, feeling unwell and his leg became swollen, red, hot, and painful while in the ED. He was admitted for IV abx for an extended period of time. Upon my interview, patient reports that the redness is increasing. He has tenderness in the leg as well. Patient denies any fevers, chills, n/v/abdominal pain, change in bowel/bladder habits, CP, SOB, or even generally feeling unwell. Discharge Exam Constitutional WD/WN, vitals as above Respiratory normal respiratory effort, lungs clear to auscultation Cardiovascular Rate/Rhythm: regular rate and regular rhythm Heart Sounds: no murmur Extremities: + edema (LLE 2+ pitting edema to prox leg) Skin very mild erythema of mid to lower left leg Psychiatric A+Ox3, euthymic affect Discharge Plan Discharge Items Patient Disposition: Home - Self-Care Reason For Visit: CELLULITIS Discharge Diagnosis: Left leg cellulitis New onset diabetes mellitus Condition on Discharge: Good Activity: As commented below Bathing: No limitations Exercise/Sports: Gradually increase as tolerated Weightbearing Comment: Please keep your left leg elevated above your heart as much as possible Non-emergency contact: Primary Care Provider Call non-emergency contact if: you have any medication questions, your symptoms worsen and you have a fever Follow-up/Referrals: Mervin Hutchins CRNP [Primary Care Provider] - (Please follow up within 1-2 weeks-please call for an appointment ) Diet: Carb Consistent or DM2 Addtl Attending Provider Instructions: You were diagnosed with a left leg infection called cellulitis. You had testing that ruled out a blood clot in your leg or pelvis. Finish out the two antibiotics called doxycycline and Augmentin for 6 more days. If you develop a fever, worsening redness or swelling of the leg, please return to the hospital. You were found to have diabetes here which is a condition of high blood sugar in your blood. This can lead to many different health complications and is important to treat to prevent worsening. You will be started on metformin to help control your blood sugar. You should also work on cutting down on your sugar and carbohydrate intake as we discussed. It is important to follow up with your PCP for ongoing care for diabetes. Pending Studies at Discharge: No Stand-Alone Forms: My [facility], Smoking Cessation Medications and DC Order Prescriptions: New amoxicillin-pot clavulanate 875-125 mg tablet 1 tab PO BID Qty: 12 0RF doxycycline hyclate 100 mg tablet 100 mg PO BID Qty: 12 0RF metformin [Glumetza] 1,000 mg tablet,ER antonio.retention 24 hr 1,000 mg PO DAILY Qty: 90 0RF Continued tamsulosin [Flomax] 0.4 mg capsule 0.4 mg PO DAILY Qty: 30 2RF Descovy 200-25 mg tablet 1 tab PO DAILY doxycycline hyclate 100 mg tablet 200 mg PO UD PRN (Reason: Sexual Activity) Rx Instructions: TAKE 2 TABLETS UP TO 72 HOURS AFTER SEX,DO NOT EXCEED MORE THAN 2 TABLETS IN 24 HOURS omeprazole 40 mg capsule,delayed release(DR/EC) 40 mg PO DAILY Qty: 90 0RF cholecalciferol (vitamin D3) [Vitamin D3] 50 mcg (2,000 unit) Capsule 50 mcg PO DAILY Discharge Orders: Discharge Order (Routine); Ordered 08/25/24 Ordered By: Suzi Ferrer/Other Patient Handouts: A1C, 5 Steps for Eating Healthier, Exercise: Why Fitness Matters Admission Data Admit Date/Time: 08/23/24 01:03 Attending Provider: Suzi Modi Admit Provider: Tamiko Cleaning Primary Care Provider: Mervin Hutchins Other Providers: Dm Jenkins Hospital Stay Data Consultations 08/23/24 00:01 ED Decision to Admit Stat Diagnostic Imagining Performed 08/22/24 21:07 US leg [US venous doppler LE LT] Stat 08/23/24 17:30 CT abdomen pelvis veno w con Routine Pending Results Patient Have Any Pending Studies at Discharge: No Discharge Instructions Given to Patient (Per Discharging Provider) You were diagnosed with a left leg infection called cellulitis. You had testing that ruled out a blood clot in your leg or pelvis. Finish out the two antibiotics called doxycycline and Augmentin for 6 more days. If you develop a fever, worsening redness or swelling of the leg, please return to the hospital. You were found to have diabetes here which is a condition of high blood sugar in your blood. This can lead to many different health complications and is important to treat to prevent worsening. You will be started on metformin to help control your blood sugar. You should also work on cutting down on your sugar and carbohydrate intake as we discussed. It is important to follow up with your PCP for ongoing care for diabetes. Total Time Total Time Spent Total Time Spent (In Minutes): 35 min Total Time Includes: Examination of the Patient, Discharge Planning and Medication Reconciliation Coding Level of Care Code 42791 INP/OBS DISCH >30 MIN Diagnoses Cellulitis of left lower leg L03.116 Elevated CK R74.8 Diabetes mellitus E11.9 Anemia D64.9 COPD (chronic obstructive pulmonary disease) J44.9
== END 2024-08-25 15:21 | disposition home or self-care (01) | DRG 603 ==
LOC: ED 20:44 → SUATTDRO 08-23 01:03 → EDINP 08-23 01:03 → 2W 08-23 03:00 → 3W 08-24 23:37